=== PATIENT | female | born 1950 | race Caucasian/White ===

== ENCOUNTER 2017-11-23 08:43 | Emergency (ER) | payer MEDICARE, OTHER, SELFPAY ==
[2017-11-23 08:44] VITALS: BP 160/131; PULSE 64; RESP 18; TEMP 36.4; O2SAT 99; BMI 40.2
--- NOTE | 2017-11-23 08:58 | CT_ITS ---
STUDY: CT ABDOMEN AND PELVIS WITHOUT CONTRAST REASON FOR EXAM: Female, 67 years old. Recent diverticulitis and back pain RADIATION DOSAGE (If Supplied By Facility): CTDIvol = ( 18.61 ) mGy, DLP = ( 901.9 ) mGycm TECHNIQUE: Transaxial images were obtained from the dome of the diaphragm to the symphysis pubis without oral contrast, and without intravenous contrast. Sagittal and coronal images were reconstructed. Individualized dose optimization techniques were used for this CT. COMPARISON: 06/12/2016 FINDINGS: The visualized lung bases are unremarkable. The visualized portions of the heart are within normal limits. Normal liver. Normal gallbladder and extrahepatic biliary system. Normal spleen. Normal pancreas. Normal bilateral adrenal glands. Normal right kidney. Normal left kidney. Stable small exophytic left lower pole renal cyst. There is a small hiatal hernia. Normal small intestine. There are multiple colonic diverticula consistent with diverticulosis. There appears to be a small amount of pericolonic fat stranding in the sigmoid colon suggesting low-grade colitis. No evidence of perforation or abscess. The appendix is visualized and appears normal. Normal abdominal aorta. Normal inferior vena cava. Normal retroperitoneum. Normal urinary bladder. Normal visualized uterus. Bilateral tubal ligation Normal abdominal wall. There are diffuse degenerative changes of the visualized lumbar spine. CT/Abdomen/Pelvis without Cont IMPRESSION: Chronic diverticulosis is noted with a small amount of pericolonic fat stranding and edema in the sigmoid colon region suggesting low-grade diverticulitis. No evidence of abscess or perforation. Remaining chronic findings as above Electronically Signed: Chad Crowley DO at 10:18 EST Tel , Service support ,
--- NOTE | 2017-11-23 08:59 | ED.VISSUMM ---
- ER Visit Summary Date of Service: 11/23/17 Chief Complaint: [Abdominal pain] History of Present Illness: The patient is a 67 F [[place] emergency department with abdominal pain. It started 2-1/2 weeks ago. She was started on Cipro and Flagyl for diverticulitis by her primary care physician. He did get much better but never went away. The last few days she has had pain in her left back radiating down her left buttock into her thigh. The abdominal pain continues to be there and waxes and wanes. She rates as 8 out of 10. It is worse with sitting. Bowel movements have been normal. She has been having some dribbling urine. No hematuria. No fevers or chills. She has had a tubal ligation but no other abdominal surgeries. She does have a history of high blood pressure. She takes her blood pressure medicine regularly. She was at urgent care and her blood pressure was 120/87. She states she has white coat hypertension he usually goes down on a second check.] Physical Examination: [] Blood pressure 160/131 vitals within normal limits WN WD NAD PERRL EOMI MMM NECK supple and nontender, no masses RRR no murmur rub or gallop, no peripheral edema, symmetric radial pulses CTAB no respiratory distress ABDOMEN is soft very mild diffuse tenderness, pain is reproduced when sitting up, normal bowel sounds, no distension, no rebound or guarding No CVA tenderness or midline lumbar tenderness, she does have pain reproduced on straight leg raise she has strong DP pulses and no distal skin changes SKIN is warm and dry no rashes Alert and Oriented x3, CN II-XII in tact, no motor or sensory deficits, gait normal No lymphadenopathy Test Results: [] Emergency Department Course and Treatment: [Patient had a mild leukocytosis. CT of the abdomen and pelvis shows sigmoid diverticulitis. On reevaluation pain has increased and patient states this is the worst pain she is ever had. At that time I did give her morphine and spoke with the hospitalist regarding admission for recurrent diverticulitis that failed initial treatment.] Treatment Plan: [] Disposition: [Admit] Impression: [Diverticulitis] This note was generated with [employer] software. It may contain incorrect words, spelling, and punctuation that were not noted in review of the chart prior to signing ED Disposition - Plan for ED Patient: Disposition: Home or Assisted Living Chief Complaint: Abd Pain Diagnosis: Diverticulitis Prescriptions: Hydrocodone Bitart/Apap 5-325 [[place] 5MG-325MG] 1 tablet PO Q6H PRN PRN 3 Days #12 tablet PRN Reason: Pain Amoxicillin/Potassium Clav [Augmentin 875-125 Tablet] 1 ea PO BID #28 tab Ibuprofen 3 tab PO Q6H PRN #1 tablet PRN Reason: Pain Referrals: Adiel Foster III, MD [Primary Care Provider] - Additional Instructions: Notify PCP or return to ED if experiencing worsening abdominal pain. [place] diet, advance as tolerated.
--- NOTE | 2017-11-23 09:02 | ED.DCSUM_ITS ---
- ER Visit Summary Date of Service: 11/23/17 Chief Complaint: [Abdominal pain] History of Present Illness: The patient is a 67 F [[place] emergency department with abdominal pain. It started 2-1/2 weeks ago. She was started on Cipro and Flagyl for diverticulitis by her primary care physician. He did get much better but never went away. The last few days she has had pain in her left back radiating down her left buttock into her thigh. The abdominal pain continues to be there and waxes and wanes. She rates as 8 out of 10. It is worse with sitting. Bowel movements have been normal. She has been having some dribbling urine. No hematuria. No fevers or chills. She has had a tubal ligation but no other abdominal surgeries. She does have a history of high blood pressure. She takes her blood pressure medicine regularly. She was at urgent care and her blood pressure was 120/87. She states she has white coat hypertension he usually goes down on a second check.] Physical Examination: [] Blood pressure 160/131 vitals within normal limits WN WD NAD PERRL EOMI MMM NECK supple and nontender, no masses RRR no murmur rub or gallop, no peripheral edema, symmetric radial pulses CTAB no respiratory distress ABDOMEN is soft very mild diffuse tenderness, pain is reproduced when sitting up , normal bowel sounds, no distension, no rebound or guarding No CVA tenderness or midline lumbar tenderness, she does have pain reproduced on straight leg raise she has strong DP pulses and no distal skin changes SKIN is warm and dry no rashes Alert and Oriented x3, CN II-XII in tact, no motor or sensory deficits, gait normal No lymphadenopathy Test Results: [] Emergency Department Course and Treatment: [Patient had a mild leukocytosis. CT of the abdomen and pelvis shows sigmoid diverticulitis. On reevaluation pain has increased and patient states this is the worst pain she is ever had. At that time I did give her morphine and spoke with the hospitalist regarding admission for recurrent diverticulitis that failed initial treatment.] Treatment Plan: [] Disposition: [Admit] Impression: [Diverticulitis] This note was generated with [employer] software. It may contain incorrect words, spelling, and punctuation that were not noted in review of the chart prior to signing ED Disposition - Plan for ED Patient: Disposition: Home or Assisted Living Chief Complaint: Abd Pain Diagnosis: Diverticulitis Prescriptions: Hydrocodone Bitart/Apap 5-325 [[place] 5MG-325MG] 1 tablet PO Q6H PRN PRN 3 Days # 12 tablet PRN Reason: Pain Amoxicillin/Potassium Clav [Augmentin 875-125 Tablet] 1 ea PO BID #28 tab Ibuprofen 3 tab PO Q6H PRN #1 tablet PRN Reason: Pain Referrals: Adiel Foster III, MD [Primary Care Provider] - Additional Instructions: Notify PCP or return to ED if experiencing worsening abdominal pain. [place] diet , advance as tolerated.
[2017-11-23] MEDS: 0.9% Normal Saline 1,000 ML 1000 ML IV (09:30)
[2017-11-23 09:33] LABS: Absolute Lymphocyte Count 2.34 X10^3/ul (0.83-4.51); Absolute Neutrophil Count 3.7 X10^3/uL (2.0-7.7); Basophil# 0.03 X10^3/uL; Basophil% 0.4 % (0-1); Eosinophils% 1.5 % (0-5); Hematocrit 40.6 % (37-47); Lymphocyte # 2.34 X10^3/ul (4.0); Lymphocyte % 34.4 % (19-41); Mean Corpuscular Hgb 27.6 pg (27.0-32.0); Mean Corpuscular Volume 86.2 fL (81-99); Monocyte# 0.59 X10^3/uL; Monocyte% 8.7 % (0-10); Neutrophil # 3.73 X10^3/uL (2.7-7.7); Neutrophil % 54.9 % (47-70); Platelet Count 209 K/mm3 (150-450); RBC Distribution Width CV 14.4 % (11.6-14.6); RBC Distribution Width SD 45.2 fl (35.1-43.9); Red Blood Count 4.71 M/mm3 (4.2-5.4); White Blood Count 6.8 K/mm3 (4.4-11.0)
[2017-11-23 09:34] LABS: POSITIVE COUNT NO; POSITIVE DIFFERENTIAL NO; POSITIVE MORPHOLOGY NO
[2017-11-23 09:40] LABS: Bacteria 0 SEEN /hpf (None Seen); Mucous, Urine 0 SEEN /hpf (<or=2+); White Blood Cells 0 SEEN /hpf (0-5)
[2017-11-23 09:43] LABS: Color, Urine Yellow (Yellow); Glucose, Dipstick Normal (Normal); Ketone-Dipstick Negative (Negative); Leukocyte Esterase-Dipstick Negative /ul (Negative); Nitrite-Dipstick Negative (Negative); Occult Blood-Urine Negative /ul (Negative); Protein-Dipstick Negative (Negative); Specific Gravity, Urine 1.015 (1.002-1.030); Urine Bilirubin Dipstick Negative (Negative); Urine Clarity Sl. Cloudy (Clear); Urine Urobilinogen Normal (Normal)
[2017-11-23 09:49] LABS: Red Blood Cells-Urine 0-5 SEEN /hpf (0-5); Squamous Epithelial Cells - UA 0-5 SEEN /hpf (5-10)
[2017-11-23 09:53] LABS: Albumin, Serum 3.5 g/dL (3.2-5.0); BUN 16 mg/dL (7-18); BUN/Creat Ratio 20.3 RATIO (10-20); Creatinine, Serum 0.79 mg/dL (0.55-1.02); EST Glomerular Filtration Rate 78 mL/min (>60); Est Glom Filt Rate - Afr Amer 94 mL/min (>60); Estimated Creatinine Clearance 43.77 ml/min; Glucose 86 mg/dL (74-106); Protein, Total 7.4 g/dL (6.4-8.2)
[2017-11-23 09:54] LABS: ALB/GLOB Ratio 0.9 RATIO (0.9-2.4); AST(SGOT) 24 U/L (15-37); Alanine Aminotransfer ALT/SGPT 38 U/L (13-56); Alkaline Phosphatase 73 U/L (45-117); Anion Gap 6 (5-15); Calcium,Total 8.7 mg/dL (8.5-10.1); Chloride 104 mmol/L (98-107); Globulin 3.9 g/dL (2.2-4.2); Lipase 158 U/L (73-393); Potassium 3.5 mmol/L (3.5-5.1); Sodium Level 140 mmol/L (136-145)
[2017-11-23] MEDS: Ketorolac 30 MG/ML Syringe IV (10:29)
--- NOTE | 2017-11-23 10:37 | NURSING ---
NO LW OR POA
--- NOTE | 2017-11-23 10:40 | NURSING ---
DR REGGIE VANN
--- NOTE | 2017-11-23 10:49 | NURSING ---
DR PAREDES IN ROOM
--- NOTE | 2017-11-23 11:22 | DCINST.ED_ITS ---
ED Disposition - Plan for ED Patient: Disposition: Home or Assisted Living Chief Complaint: Abd Pain Diagnosis: Diverticulitis Prescriptions: Hydrocodone Bitart/Apap 5-325 [[place] 5MG-325MG] 1 tablet PO Q6H PRN PRN 3 Days # 12 tablet PRN Reason: Pain Amoxicillin/Potassium Clav [Augmentin 875-125 Tablet] 1 ea PO BID #28 tab Ibuprofen 3 tab PO Q6H PRN #1 tablet PRN Reason: Pain Referrals: Adiel Foster III, MD [Primary Care Provider] - Additional Instructions: Notify PCP or return to ED if experiencing worsening abdominal pain. [place] diet , advance as tolerated.
--- NOTE | 2017-11-23 11:22 | PCM.CONS.GEN ---
Problem List (1) Hypertension Status: Chronic Qualifiers: Hypertension type: essential hypertension Qualified Code(s): I10 - Essential (primary) hypertension (2) Diverticulitis Status: Acute Reason for Consult Date of Consultation: 11/23/17 Reason for Consultation: diverticulitis History of Present Illness: The patient is a 67 year old F who experienced an acute flare of diverticulitis approximately 2 weeks ago. Patient took a 10 day course of metronidazole and ciprofloxacin. Patient still had left lower quadrant abdominal pain but did get better during that time. Patient completed antibiotics several days ago and then today had worsening abdominal pain as well as back pain. Patient presented to the emergency room where her vital signs and lab work was stable. CAT scan showed small amount of pericolonic fat stranding and edema in the sigmoid colon suggesting a low-grade diverticulitis. No abscess or perforation was noted. The hospitalist service was asked to admit the patient for a treatment failure of diverticulitis. [] Past Medical History Past Medical History (Chronic Problems): Chronic Problems Hypertension (Chronic) Allergies codeine Adverse Reaction (Verified 11/23/17 08:46) Vomiting lisinopril Adverse Reaction (Verified 11/23/17 08:46) Other COUGH Home Medications: Ambulatory Orders Medication Instructions Recorded Bisoprol/Hydrochlorothiazide [Ziac 1 tab PO DAILY 09/19/15 5/6.25 MG (Beta Kaiden)] Amoxicillin/Potassium Clav 1 ea PO BID #28 tab 11/23/17 [Augmentin 875-125 Tablet] Hydrocodone Bitart/Apap 5-325 1 tablet PO Q6H PRN PRN 3 Days #12 11/23/17 [[place] 5MG-325MG] tablet Ibuprofen 3 tab PO Q6H PRN #1 tablet 11/23/17 Smoking Status: Never smoker - *Family History Paternal History Items: Cancer - Prostate, Heart Disease Sibling History Items: Cancer - Esophageal Review of Systems Constitutional: Denies: Chills, Fever, Weight Change Eyes: Denies: Blurred vision, Double vision HEENT: Denies: Head Aches, Sinus Congestion, Sinus Drainage Cardiovascular: Denies: Chest Pain, Palpitations Respiratory: Denies: Cough, Shortness of breath at rest, Sputum production Gastrointestinal: Reports: Abdominal Pain. Denies: Hematochezia, Nausea, Melena, Vomiting Genitourinary: Denies: Dysuria Musculoskeletal: Denies: Joint Pain, Joint Tenderness Skin: Denies: Rash, Wounds Neurological: Denies: Blurred vision, Double vision, Focal weakness, Numbness, Tingling Psychiatric: Denies: Anxiety, Depression Hematologic/ Lymphatic: Denies: Easy Bruising, Easy Bleeding, Hx of blood clot Patient Problems: Active and Suspected Problems Diverticulitis (Acute) - Physical Exam General: Alert, Cooperative, No apparent distress HEENT: Atraumatic, Normocephalic Neck: No Nodes, Thyroid Normal Size and Texture Lungs: Clear to auscultation, Normal air movement, No rhonchi, No wheeze Cardiovascular: Regular rate, Regular Rhythm, Normal S1, Normal S2 Abdomen: Bowel Sounds Present, Soft, Tender - Left lower quadrant. No rebound tenderness. Extremities: No edema, No Calf Tenderness Skin: No rashes, No breakdown Musculoskeletal: No Tenderness to Palpation of Joints or Extremities, No Muscle Wasting Psych/Mental Status: Normal Affect, Appropriate Vital Signs Temp Pulse Resp BP Pulse Ox 36.4 C L 64 18 160/131 H 99 11/23/17 08:44 11/23/17 08:44 11/23/17 08:44 11/23/17 08:44 11/23/17 08:44 Oxygen Delivery Method Room Air Weight: 99.79 kg Body Mass Index (BMI) 40.2 Laboratory Tests Past 24 Hrs 11/23/17 11/23/17 11/23/17 09:24 09:24 09:35 WBC 6.8 RBC 4.71 Hgb 13.0 Hct 40.6 MCV 86.2 MCH 27.6 MCHC 32.0 RDW 14.4 RDW Differential 45.2 H Plt Count 209 MPV 11.0 Immature Gran % (Auto) 0.100 Neut % (Auto) 54.9 Lymph % (Auto) 34.4 [place] % (Auto) 8.7 Eos % (Auto) 1.5 Baso % (Auto) 0.4 Absolute Neuts (auto) 3.7 Absolute Lymphs (auto) 2.34 Total Counted Not Reportable Sodium 140 Potassium 3.5 Chloride 104 Carbon Dioxide 30.0 Anion Gap 6 BUN 16 Creatinine 0.79 Estim Creat Clear Calc 43.77 Est GFR (MDRD) Af Amer 94 Est GFR (MDRD) Non-Af 78 BUN/Creatinine Ratio 20.3 H Glucose 86 Calcium 8.7 Total Bilirubin 0.40 AST 24 ALT 38 Alkaline Phosphatase 73 Total Protein 7.4 Albumin 3.5 Globulin 3.9 Albumin/Globulin Ratio 0.9 Lipase 158 Urine Color Yellow Urine Clarity Sl. Cloudy Urine pH 8.0 Ur Specific [place] 1.015 Urine Protein Negative Urine Glucose (UA) Normal Urine Ketones Negative Urine Occult Blood Negative Urine Nitrite Negative Urine Bilirubin Negative Urine Urobilinogen Normal Ur Leukocyte Esterase Negative Urine RBC 0-5 SEEN Urine WBC 0 SEEN Ur Squamous Epith Cells 0-5 SEEN Urine Bacteria 0 SEEN Urine Mucus 0 SEEN Clinical Impression(s) from Imaging Studies Abdomen/Pelvis CT 11/23/17 08:58 IMPRESSION: Chronic diverticulosis is noted with a small amount of pericolonic fat stranding and edema in the sigmoid colon region suggesting low-grade diverticulitis. No evidence of abscess or perforation. Remaining chronic findings as above Electronically Signed: Chad Crowley DO at 10:18 EST Tel , Service support , Assessment/Plan Active and Suspected Problems Diverticulitis (Acute) 1. Acute diverticulitis Patient had completed a course of metronidazole and ciprofloxacin about 4 days ago. Patient stated that her symptoms were not completely resolved though improved with that antibiotic course. Patient was on antibiotic course for 10 days. I am not sure I can really qualify this as a treatment failure but I do feel that patient would warrant additional treatment with a different antibiotic. And I recommend a 2 week course of Augmentin. Told the patient that she is hemodynamically stable as well as her labs do not reflect severe illness or even sepsis. I did state the patient's pain is so severe that she can certainly be brought in under observation to ensure that she was doing better and tolerating diet. Patient stated that she would rather go home with antibiotics as well as she is agreeable to a short course of [place] if needed. So I will send her 3 day course of [place] in addition to the 2 week course of Augmentin. Patient instructed that if she has worsening abdominal pain that it could be a sign of a developing abscess or perforation and to notify her primary care doctor or come back to the emergency room. This is now the patient's 6 round of diverticulitis. I suggested that she follow-up with general surgery to see if a partial colectomy may be advisable to help prevent further flareups. No acute surgical intervention is necessary at this time. Patient is medically stable and taken liberty to complete the discharge orders and send the patient's prescriptions to her local pharmacy. Code Visit Office Visits / Consults: [id number] OP Consult L3
--- NOTE | 2017-11-23 11:29 | CON.PCM_ITS ---
Problem List (1) Hypertension Status: Chronic Qualifiers: Hypertension type: essential hypertension Qualified Code(s): I10 - Essential (primary) hypertension (2) Diverticulitis Status: Acute Reason for Consult Date of Consultation: 11/23/17 Reason for Consultation: diverticulitis History of Present Illness: The patient is a 67 year old F who experienced an acute flare of diverticulitis approximately 2 weeks ago. Patient took a 10 day course of metronidazole and ciprofloxacin. Patient still had left lower quadrant abdominal pain but did get better during that time. Patient completed antibiotics several days ago and then today had worsening abdominal pain as well as back pain. Patient presented to the emergency room where her vital signs and lab work was stable. CAT scan showed small amount of pericolonic fat stranding and edema in the sigmoid colon suggesting a low-grade diverticulitis. No abscess or perforation was noted. The hospitalist service was asked to admit the patient for a treatment failure of diverticulitis. [] Past Medical History Past Medical History (Chronic Problems): Chronic Problems Hypertension (Chronic) Allergies codeine Adverse Reaction (Verified 11/23/17 08:46) Vomiting lisinopril Adverse Reaction (Verified 11/23/17 08:46) Other COUGH Home Medications: Ambulatory Orders Medication Instructions Recorded Bisoprol/Hydrochlorothiazide [Ziac 1 tab PO DAILY 09/19/15 5/6.25 MG (Beta [place])] Amoxicillin/Potassium Clav 1 ea PO BID #28 tab 11/23/17 [Augmentin 875-125 Tablet] Hydrocodone Bitart/Apap 5-325 1 tablet PO Q6H PRN PRN 3 Days #12 11/23/17 [[place] 5MG-325MG] tablet Ibuprofen 3 tab PO Q6H PRN #1 tablet 11/23/17 Smoking Status: Never smoker - *Family History Paternal History Items: Cancer - Prostate, Heart Disease Sibling History Items: Cancer - Esophageal Review of Systems Constitutional: Denies: Chills, Fever, Weight Change Eyes: Denies: Blurred vision, Double vision HEENT: Denies: Head Aches, Sinus Congestion, Sinus Drainage Cardiovascular: Denies: Chest Pain, Palpitations Respiratory: Denies: Cough, Shortness of breath at rest, Sputum production Gastrointestinal: Reports: Abdominal Pain. Denies: Hematochezia, Nausea, Melena , Vomiting Genitourinary: Denies: Dysuria Musculoskeletal: Denies: Joint Pain, Joint Tenderness Skin: Denies: Rash, Wounds Neurological: Denies: Blurred vision, Double vision, Focal weakness, Numbness, Tingling Psychiatric: Denies: Anxiety, Depression Hematologic/ Lymphatic: Denies: Easy Bruising, Easy Bleeding, Hx of blood clot Patient Problems: Active and Suspected Problems Diverticulitis (Acute) - Physical Exam General: Alert, Cooperative, No apparent distress HEENT: Atraumatic, Normocephalic Neck: No Nodes, Thyroid Normal Size and Texture Lungs: Clear to auscultation, Normal air movement, No rhonchi, No wheeze Cardiovascular: Regular rate, Regular Rhythm, Normal S1, Normal S2 Abdomen: Bowel Sounds Present, Soft, Tender - Left lower quadrant. No rebound tenderness. Extremities: No edema, No Calf Tenderness Skin: No rashes, No breakdown Musculoskeletal: No Tenderness to Palpation of Joints or Extremities, No Muscle Wasting Psych/Mental Status: Normal Affect, Appropriate Vital Signs Temp Pulse Resp BP Pulse Ox 36.4 C L 64 18 160/131 H 99 11/23/17 08:44 11/23/17 08:44 11/23/17 08:44 11/23/17 08:44 11/23/17 08:44 Oxygen Delivery Method Room Air Weight: 99.79 kg Body Mass Index (BMI) 40.2 Laboratory Tests Past 24 Hrs 11/23/17 11/23/17 11/23/17 09:24 09:24 09:35 WBC 6.8 RBC 4.71 Hgb 13.0 Hct 40.6 MCV 86.2 MCH 27.6 MCHC 32.0 RDW 14.4 RDW Differential 45.2 H Plt Count 209 MPV 11.0 Immature Gran % (Auto) 0.100 Neut % (Auto) 54.9 Lymph % (Auto) 34.4 [place] % (Auto) 8.7 Eos % (Auto) 1.5 Baso % (Auto) 0.4 Absolute Neuts (auto) 3.7 Absolute Lymphs (auto) 2.34 Total Counted Not Reportable Sodium 140 Potassium 3.5 Chloride 104 Carbon Dioxide 30.0 Anion Gap 6 BUN 16 Creatinine 0.79 Estim Creat Clear Calc 43.77 Est GFR (MDRD) Af Amer 94 Est GFR (MDRD) Non-Af 78 BUN/Creatinine Ratio 20.3 H Glucose 86 Calcium 8.7 Total Bilirubin 0.40 AST 24 ALT 38 Alkaline Phosphatase 73 Total Protein 7.4 Albumin 3.5 Globulin 3.9 Albumin/Globulin Ratio 0.9 Lipase 158 Urine Color Yellow Urine Clarity Sl. Cloudy Urine pH 8.0 Ur Specific [place] 1.015 Urine Protein Negative Urine Glucose (UA) Normal Urine Ketones Negative Urine Occult Blood Negative Urine Nitrite Negative Urine Bilirubin Negative Urine Urobilinogen Normal Ur Leukocyte Esterase Negative Urine RBC 0-5 SEEN Urine WBC 0 SEEN Ur Squamous Epith Cells 0-5 SEEN Urine Bacteria 0 SEEN Urine Mucus 0 SEEN Clinical Impression(s) from Imaging Studies Abdomen/Pelvis CT 11/23/17 08:58 IMPRESSION: Chronic diverticulosis is noted with a small amount of pericolonic fat stranding and edema in the sigmoid colon region suggesting low-grade diverticulitis. No evidence of abscess or perforation. Remaining chronic findings as above Electronically Signed: Chad Crowley DO at 10:18 EST Tel , Service support , Assessment/Plan Active and Suspected Problems Diverticulitis (Acute) 1. Acute diverticulitis * Patient had completed a course of metronidazole and ciprofloxacin about 4 days ago. Patient stated that her symptoms were not completely resolved though improved with that antibiotic course. Patient was on antibiotic course for 10 days. I am not sure I can really qualify this as a treatment failure but I do feel that patient would warrant additional treatment with a different antibiotic. And I recommend a 2 week course of Augmentin. Told the patient that she is hemodynamically stable as well as her labs do not reflect severe illness or even sepsis. I did state the patient's pain is so severe that she can certainly be brought in under observation to ensure that she was doing better and tolerating diet. Patient stated that she would rather go home with antibiotics as well as she is agreeable to a short course of [place] if needed. So I will send her 3 day course of [place] in addition to the 2 week course of Augmentin. Patient instructed that if she has worsening abdominal pain that it could be a sign of a developing abscess or perforation and to notify her primary care doctor or come back to the emergency room. * This is now the patient's 6 round of diverticulitis. I suggested that she follow-up with general surgery to see if a partial colectomy may be advisable to help prevent further flareups. No acute surgical intervention is necessary at this time. * Patient is medically stable and taken liberty to complete the discharge orders and send the patient's prescriptions to her local pharmacy. Code Visit Office Visits / Consults: [id number] OP Consult L3
[2017-11-23 11:40] VITALS: BP 142/75; PULSE 54; RESP 16; O2SAT 100
== END 2017-11-23 12:03 | disposition home or self-care (01) ==
PROVIDERS: Emergency Provider Emergency Medicine; Family Provider Family Medicine; PCP Family Medicine
DX: K57.32 Diverticulitis of large intestine without perforation or abscess without bleeding (principal); I10 Essential (primary) hypertension
CPT/HCPCS: 74176; 80053; 81001; 83690; 85025; 96361; 96365; 96375; 99283; J7030; J7050; A4216

== ENCOUNTER 2018-03-14 18:46 | Emergency (ER) | payer MEDICARE, OTHER, SELFPAY ==
--- NOTE | 2018-03-14 18:46 | DT_ITS ---
This patient was seen during an EMR downtime March 14, 2018 - March 21, 2018. This patient may have a combination of paper and electronic documentation or all paper documentation. All documentation is viewable within the e-chart portion of [employer] for each patient visit.
== END 2018-03-14 19:05 | disposition left against medical advice (07) ==
LOC: ED 03-16 14:48
PROVIDERS: Emergency Provider Emergency Medicine; Family Provider Family Medicine; PCP Family Medicine
DX: Z53.21 Procedure and treatment not carried out due to patient leaving prior to being seen by health care provider (principal)

== ENCOUNTER 2019-03-08 12:43 | Emergency (ER) | payer MEDICARE, OTHER, SELFPAY ==
[2019-03-08 12:43] VITALS: BP 143/80; PULSE 69; RESP 14; TEMP 36.6; O2SAT 97; BMI 37.2
--- NOTE | 2019-03-08 13:11 | CT_ITS ---
STUDY: CT ABDOMEN AND PELVIS WITHOUT CONTRAST REASON FOR EXAM: Female, 68 years old. Lower abdominal pain. History of diverticulitis. RADIATION DOSAGE (If Supplied By Facility): CTDIvol = ( 16.31 ) mGy, DLP = ( 835.23 ) mGycm TECHNIQUE: Transaxial images were obtained from the dome of the diaphragm to the symphysis pubis without oral contrast, and without intravenous contrast. Sagittal and coronal images were reconstructed. Individualized dose optimization techniques were used for this CT. COMPARISON: Comparison is made with prior study dated November 23, 2017. FINDINGS: The visualized lung bases are unremarkable. The visualized portions of the heart are within normal limits. There is decreased attenuation of the liver consistent with steatosis. Normal gallbladder and extrahepatic biliary system. Normal spleen. Normal pancreas. Normal bilateral adrenal glands. Normal right kidney. Normal left kidney. There is a small hiatal hernia. Normal small intestine. There is diverticulosis, with thickening of the colon wall, and pericolonic inflammation changes consistent with acute diverticulitis. The appendix is visualized and appears normal. There is scattered atherosclerotic calcification of the abdominal aorta, without a demonstrated aneurysm. Normal inferior vena cava. There is borderline retroperitoneal lymphadenopathy with enlarged nodes no greater than 10mm in the short axis diameter. Normal urinary bladder. Evidence of bilateral tubal ligation. Normal abdominal wall. There are diffuse degenerative changes of the visualized lumbar spine. Minimal anterior listhesis of L4 on L5. CT/Abdomen/Pelvis without Cont IMPRESSION: Findings in keeping with a mild degree of noncomplicated sigmoid diverticulitis. Fatty infiltration of the liver. Electronically Signed: Oz Phillips, at 14:05 EDT , Service support ,
--- NOTE | 2019-03-08 13:12 | ED.VISSUMM ---
- ER Visit Summary Date of Service: 03/08/19 Chief Complaint: Abdominal pain History of Present Illness: The patient is a 68 F who presents with left lower abdominal pain that has been getting worse over the past 2 days. Patient states the pain feels similar to her diverticulitis pain. Patient states the pain is over the lower abdomen but worse on the left. Patient admits to some nausea but denies any vomiting. Patient admits to subjective fevers. Patient denies any diarrhea, melena, or hematochezia. Patient denies any urinary complaints. Patient denies any back pain. Patient denies any chest pain or shortness of breath. Physical Examination: Vital signs are stable. Patient is afebrile. Patient is in no acute distress. Oral mucosa is pink and moist. Neck is supple. Trachea is midline. There is no JVD noted. Heart was regular rate and rhythm. Lungs are clear and equal bilaterally. Abdomen is soft. Bowel sounds are normal. There is mild left lower quadrant tenderness. There is no rebound or guarding noted. Cranial nerves II through XII are intact. There are no focal motor or sensory deficits noted. Test Results: CT scan of the abdomen and pelvis was obtained. There is mild sigmoid diverticulitis. There is no perforation noted. There is no free air. Emergency Department Course and Treatment: Patient was given prescriptions for Cipro and Flagyl. Patient was instructed to follow-up with her primary care physician in 5 to 7 days. Patient understood and was agreeable with the plan. All questions were answered. Disposition: Discharge home Impression: Sigmoid diverticulitis This note was generated with [employer] dictation software. It may contain incorrect words, spelling, and punctuation that were not noted in review of the chart prior to signing ED Disposition - Plan for ED Patient: Disposition: Home or Assisted Living Diagnosis: Sigmoid diverticulitis Instructions: ED Diverticulitis Prescriptions: Ciprofloxacin [Cipro] 500 mg PO BID #20 tablet metroNIDAZOLE [Flagyl] 500 mg PO Q6H #40 tablet Referrals: Adiel Foster III, MD [Primary Care Provider] - 5-7 Days Additional Instructions: Your prescriptions were electronically transmitted to [facility] pharmacy which is your preferred pharmacy
[2019-03-08 13:39] LABS: Bacteria 0 SEEN /hpf (None Seen); Mucous, Urine 0 SEEN /hpf (<or=2+); Red Blood Cells-Urine 0 SEEN /hpf (0-5); White Blood Cells 0 SEEN /hpf (0-5)
[2019-03-08 13:45] LABS: Color, Urine Yellow (Yellow); Glucose, Dipstick Normal (Normal); Ketone-Dipstick Negative (Negative); Leukocyte Esterase-Dipstick Negative /ul (Negative); Nitrite-Dipstick Negative (Negative); Occult Blood-Urine Negative /ul (Negative); Protein-Dipstick Negative (Negative); Urine Bilirubin Dipstick Negative (Negative); Urine Clarity Sl. Cloudy (Clear); Urine Urobilinogen Normal (Normal); Urine pH 6.5 (5.0 - 8.0)
[2019-03-08 13:49] LABS: Squamous Epithelial Cells - UA 0-5 SEEN /hpf (5-10)
[2019-03-08 14:45] VITALS: RESP 18
== END 2019-03-08 14:47 | disposition home or self-care (01) ==
PROVIDERS: Emergency Provider Emergency Medicine; Family Provider Family Medicine; PCP Family Medicine
DX: K57.32 Diverticulitis of large intestine without perforation or abscess without bleeding (principal); I10 Essential (primary) hypertension
CPT/HCPCS: 74176; 81001; 99282; J7030

== ENCOUNTER 2019-03-27 13:21 | Emergency (ER) | payer MEDICARE, OTHER, SELFPAY ==
[2019-03-27 13:22] VITALS: BP 142/95; PULSE 73; RESP 16; TEMP 36.8; O2SAT 99; BMI 39.2
--- NOTE | 2019-03-27 13:30 | CT_ITS ---
STUDY: CT ABDOMEN AND PELVIS WITH CONTRAST REASON FOR EXAM: Female, 68 years old. Lower abdominal pain. History of diverticulitis. RADIATION DOSAGE (If Supplied By Facility): CTDIvol = ( 18.45 ) mGy, DLP = ( 1162.53 ) mGycm TECHNIQUE: Transaxial images were obtained from the dome of the diaphragm to the symphysis pubis without oral contrast. 100 IV Isovue 370 was administered. Sagittal and coronal images were reconstructed. Individualized dose optimization techniques were used for this CT. COMPARISON: Comparison is made with prior study dated March 08, 2019. FINDINGS: The visualized lung bases are unremarkable. The visualized portions of the heart are within normal limits. There is decreased attenuation of the liver consistent with steatosis. Normal gallbladder and extrahepatic biliary system. Normal spleen. Normal pancreas. Normal bilateral adrenal glands. Normal right kidney. Normal left kidney. There is a small hiatal hernia. Normal small intestine. There is diverticulosis, with thickening of the colon wall, and pericolonic inflammation changes consistent with acute diverticulitis. This is essentially unchanged as compared to prior study. The appendix is visualized and appears normal. There is scattered atherosclerotic calcification of the abdominal aorta, without a demonstrated aneurysm. Normal inferior vena cava. Normal retroperitoneum. Normal urinary bladder. Evidence of bilateral tubal ligation. Normal abdominal wall. There are degenerative changes of the visualized lumbar spine. Stable minimal anterior listhesis of L4 on L5. CT/Abdomen/Pelvis W IV Cont ONLY IMPRESSION: Stable appearance of the mild degree of sigmoid diverticulitis. Fatty infiltration of the liver. Electronically Signed: Oz Phillips, at 15:36 EDT , Service support ,
--- NOTE | 2019-03-27 13:37 | ED.VISSUMM ---
- ER Visit Summary Date of Service: 03/27/19 Chief Complaint: Abdominal pain History of Present Illness: The patient is a 68 F presents to the emergency department abdominal pain. The patient was recently seen and treated for diverticulitis just over 2 weeks ago. She states she completed her antibiotics. She states that she actually felt markedly improved after 2 days of antibiotics. She is been doing well until the past 24 hours. She states that she is developed pain again. She denies any fevers or chills. She does describe some mild nausea. She denies any difficulty with urination. She states that she has had diverticulitis before and this feels similar. Physical Examination: Vital signs reviewed General: Well-nourished, well-developed Head: Normocephalic, atraumatic Eyes: Pupils equal and reactive, extraocular muscles intact Neck, supple, no lymphadenopathy Heart: Regular rate and rhythm Respiratory: No distress, clear bilaterally Abdomen: Soft, nontender, nondistended, no peritoneal signs Back: Nontender Extremities: Nontender, no edema, no cords Skin: Normal color no rash Neuro: Alert and oriented, no focal or lateralizing deficits Test Results: [] Emergency Department Course and Treatment: The patient had recurrence of her symptoms despite outpatient therapy. I did obtain screening labs are unremarkable. Patient underwent CT imaging as I did want to rule out abscess or perforation. The mild diverticulitis, but no abscess or perforation. I did discuss options with the patient. She wants to do outpatient therapy and I feel this is reasonable. We are going to try Augmentin this time at an extended course. I did counselor/art therapist her that she may need surgical follow-up as she had recurrent infections and she may be to the point where operative fixation would be of benefit. She is comfortable with this plan. She will be discharged home.] Treatment Plan: [] Disposition: Discharge Impression: 1. Acute diverticulitis This note was generated with [employer] dictation software. It may contain incorrect words, spelling, and punctuation that were not noted in review of the chart prior to signing ED Disposition - Plan for ED Patient: Instructions: ED Diverticulitis Prescriptions: Amox/Clavulanate Tablet [Augmentin Tablet] 875 mg PO Q12H #20 tab Fluconazole [Diflucan] 150 mg PO X1 #1 tab Referrals: Adiel Foster III, MD [Primary Care Provider] -
[2019-03-27] MEDS: 0.9% Normal Saline 1,000 ML 1000 ML IV (14:15)
[2019-03-27 14:23] LABS: Bacteria 0 SEEN /hpf (None Seen); Mucous, Urine 0 SEEN /hpf (<or=2+); Red Blood Cells-Urine 0 SEEN /hpf (0-5); White Blood Cells 0 SEEN /hpf (0-5)
[2019-03-27 14:26] LABS: Absolute Lymphocyte Count 2.42 X10^3/ul (0.83-4.51); Absolute Neutrophil Count 7.3 X10^3/uL (2.0-7.7); Basophil# 0.02 X10^3/uL; Basophil% 0.2 % (0-1); Eosinophil# 0.13 X10^3/uL; Eosinophils% 1.2 % (0-5); Hematocrit 41.9 % (37-47); Hemoglobin 13.6 g/dl (12.0-15.0); Lymphocyte # 2.42 X10^3/ul (4.0); Lymphocyte % 22.7 % (19-41); Mean Corp Hgb Conc 32.5 g/gl (32-36); Mean Corpuscular Hgb 27.4 pg (27.0-32.0); Mean Corpuscular Volume 84.5 fL (81-99); Monocyte# 0.77 X10^3/uL; Monocyte% 7.2 % (0-10); Neutrophil % 68.5 % (47-70); Platelet Count 221 K/mm3 (150-450); RBC Distribution Width CV 14.8 % (11.6-14.6); RBC Distribution Width SD 44.8 fl (35.1-43.9); Red Blood Count 4.96 M/mm3 (4.2-5.4); White Blood Count 10.7 K/mm3 (4.4-11.0)
[2019-03-27 14:28] LABS: POSITIVE DIFFERENTIAL NO; POSITIVE MORPHOLOGY NO
[2019-03-27 14:30] LABS: Color, Urine Yellow (Yellow); Glucose, Dipstick Normal (Normal); Ketone-Dipstick Negative (Negative); Leukocyte Esterase-Dipstick Negative /ul (Negative); Nitrite-Dipstick Negative (Negative); Occult Blood-Urine Negative /ul (Negative); Protein-Dipstick Negative (Negative); Urine Bilirubin Dipstick Negative (Negative); Urine Clarity Sl. Cloudy (Clear); Urine Urobilinogen Normal (Normal); Urine pH 6.5 (5.0 - 8.0)
[2019-03-27 14:33] LABS: Squamous Epithelial Cells - UA 0-5 SEEN /hpf (5-10)
[2019-03-27 14:43] LABS: ALB/GLOB Ratio 0.8 RATIO (0.9-2.4); AST(SGOT) 27 U/L (15-37); Alanine Aminotransfer ALT/SGPT 35 U/L (13-56); Albumin, Serum 3.6 g/dL (3.2-5.0); Alkaline Phosphatase 66 U/L (45-117); Anion Gap 8 (5-15); BUN 12 mg/dL (7-18); BUN/Creat Ratio 15.4 RATIO (10-20); Calcium,Total 9.3 mg/dL (8.5-10.1); Chloride 102 mmol/L (98-107); Creatinine, Serum 0.78 mg/dL (0.55-1.02); EST Glomerular Filtration Rate 78 mL/min (>60); Est Glom Filt Rate - Afr Amer 95 mL/min (>60); Estimated Creatinine Clearance 45.16 ml/min; Globulin 4.4 g/dL (2.2-4.2); Glucose 101 mg/dL (74-106); Potassium 3.3 mmol/L (3.5-5.1); Sodium Level 139 mmol/L (136-145)
[2019-03-27 16:04] VITALS: BP 142/76; PULSE 76; RESP 18
== END 2019-03-27 16:06 | disposition home or self-care (01) ==
LOC: ED 13:50
PROVIDERS: Emergency Provider Emergency Medicine; Family Provider Family Medicine; PCP Family Medicine
DX: K57.32 Diverticulitis of large intestine without perforation or abscess without bleeding (principal); I10 Essential (primary) hypertension; Z87.891 Personal history of nicotine dependence
CPT/HCPCS: 74177; 80053; 81001; 85025; 96360; 99283; J7030; Q9967; A4216

== ENCOUNTER 2019-04-10 16:17 | Emergency (ER) | payer MEDICARE, OTHER, SELFPAY ==
--- NOTE | 2019-04-10 16:17 | RAD_ITS ---
STUDY: X-RAY - ACUTE ABDOMINAL SERIES REASON FOR EXAM: Female, 68 years old. Abdominal pain. TECHNIQUE: Single view of the chest. Supine, and erect view(s) of the abdomen were obtained. COMPARISON: CT of the abdomen and pelvis, March 27, 2019. Chest, September 19, 2015. FINDINGS: The lungs are clear and expanded. There is mild cardiomegaly. Normal mediastinum and krupa. Normal visualized pulmonary arteries. Normal visualized aortic arch and descending thoracic aorta. There is a non-specific bowel gas pattern. The soft tissue structures of the abdomen and pelvis are unremarkable. There are tubal ligation clips. There are diffuse degenerative changes of the visualized lumbar spine. RAD/Acute Abdomen Inc Chest IMPRESSION: 1. Mild cardiomegaly without acute pulmonary disease or interval change. 2. No evidence of acute intra-abdominal process. Electronically Signed: Rigo Moseley DO at 17:45 EDT Tel [phone], Service support ,
[2019-04-10 16:18] VITALS: BP 161/75; PULSE 75; RESP 16; TEMP 36.8; O2SAT 95; BMI 38.4
--- NOTE | 2019-04-10 16:45 | ED.VISSUMM ---
- ER Visit Summary Date of Service: 04/10/19 Chief Complaint: Abdominal pain History of Present Illness: The patient is a 68 F who presents with lower abdominal pain began yesterday. Patient states she has a history of diverticulitis and feels like this is a recurrence of that. Patient states she was seen here 2 to 3 weeks ago and had a CT scan which showed diverticulitis. Patient completed her course of Cipro and Flagyl and was feeling better. Patient states that a couple days after that she started having symptoms of diverticulitis again. Patient return to the emergency department at that time and had a repeat CT scan which showed mild diverticulitis. Patient was given a prescription for Augmentin. Patient states her symptoms improved after completing this but began again yesterday. Patient admits to some nausea but denies any vomiting. Patient describes her pain is sharp and cramping. Patient states the pain is over the lower abdomen but worse on the left. Patient denies any urinary complaints. Patient denies any diarrhea, melena, or hematochezia. Physical Examination: Vital signs are stable. Patient is afebrile. Patient is in no acute distress. Oromucosa is pink moist. Neck is supple. Trachea is midline. There is no JVD noted. Heart was regular rate and rhythm. Lungs are clear and equal bilaterally. Abdomen is soft. Bowel sounds are normal. There is left lower quadrant tenderness. There is also some mild right lower quadrant tenderness. There is no rebound or guarding noted. Cranial nerves II through XII are intact. There are no focal motor or sensory deficits noted. Test Results: A mild leukocytosis of 12.9. Comprehensive metabolic profile, lipase, and urinalysis were within normal limits. Acute abdominal x-rays were obtained. There is no acute intra-abdominal process noted. There is no perforation noted. Emergency Department Course and Treatment: Patient was given IV fluids, morphine, and Zofran. Patient was given her first dose of Cipro and Flagyl here. She was given prescriptions for Cipro and Flagyl. Patient was instructed to follow-up with her primary care physician in 3 to 5 days. Patient was also given referral for general surgeon. Patient understood and was agreeable with the plan. All questions were answered. Disposition: Discharge home Impression: Diverticulitis This note was generated with [employer] dictation software. It may contain incorrect words, spelling, and punctuation that were not noted in review of the chart prior to signing ED Disposition - Plan for ED Patient: Disposition: Home or Assisted Living Diagnosis: Diverticulitis Instructions: Diverticulitis Prescriptions: Ciprofloxacin [Cipro] 500 mg PO BID #30 tab Transmission Status: Pending to [id number] metroNIDAZOLE [Flagyl] 500 mg PO Q6H #60 tab Transmission Status: Pending to [id number] Referrals: Adiel Foster III, MD [Primary Care Provider] - 3-5 Days Marlon Corado MD [STAFF PHYSICIAN] - 1-2 Weeks
[2019-04-10 17:04] LABS: Absolute Lymphocyte Count 2.38 X10^3/ul (0.83-4.51); Absolute Neutrophil Count 9.4 X10^3/uL (2.0-7.7); Basophil# 0.02 X10^3/uL; Basophil% 0.2 % (0-1); Eosinophil# 0.04 X10^3/uL; Eosinophils% 0.3 % (0-5); Hematocrit 40.8 % (37-47); Hemoglobin 13.4 g/dl (12.0-15.0); Lymphocyte # 2.38 X10^3/ul (4.0); Lymphocyte % 18.5 % (19-41); Mean Corp Hgb Conc 32.8 g/gl (32-36); Mean Corpuscular Hgb 27.9 pg (27.0-32.0); Mean Corpuscular Volume 84.8 fL (81-99); Mean Platelet Vol. 11.3 fl (6.2-12.0); Monocyte# 1.02 X10^3/uL; Monocyte% 7.9 % (0-10); Neutrophil % 72.9 % (47-70); Platelet Count 206 K/mm3 (150-450); RBC Distribution Width CV 14.4 % (11.6-14.6); RBC Distribution Width SD 44.9 fl (35.1-43.9); Red Blood Count 4.81 M/mm3 (4.2-5.4); White Blood Count 12.9 K/mm3 (4.4-11.0)
[2019-04-10 17:05] LABS: POSITIVE COUNT NO; POSITIVE DIFFERENTIAL NO; POSITIVE MORPHOLOGY NO
[2019-04-10] MEDS: Ondansetron 4 MG/2 ML Vial IV (17:07)
[2019-04-10] MEDS: Morphine 4 MG/ML Syringe IV (17:07)
[2019-04-10] MEDS: 0.9% Normal Saline 1,000 ML 1000 ML IV (17:07)
[2019-04-10 17:18] LABS: Bacteria 0 SEEN /hpf (None Seen); Mucous, Urine 0 SEEN /hpf (<or=2+); Red Blood Cells-Urine 0 SEEN /hpf (0-5); White Blood Cells 0 SEEN /hpf (0-5)
[2019-04-10 17:19] LABS: ALB/GLOB Ratio 0.8 RATIO (0.9-2.4); AST(SGOT) 31 U/L (15-37); Alanine Aminotransfer ALT/SGPT 26 U/L (13-56); Albumin, Serum 3.5 g/dL (3.2-5.0); Alkaline Phosphatase 75 U/L (45-117); Anion Gap 3 (5-15); BUN 12 mg/dL (7-18); BUN/Creat Ratio 14.6 RATIO (10-20); Calcium,Total 9.1 mg/dL (8.5-10.1); Chloride 102 mmol/L (98-107); Creatinine, Serum 0.82 mg/dL (0.55-1.02); EST Glomerular Filtration Rate 73 mL/min (>60); Est Glom Filt Rate - Afr Amer 89 mL/min (>60); Estimated Creatinine Clearance 52.65 ml/min; Globulin 4.4 g/dL (2.2-4.2); Glucose 104 mg/dL (74-106); Lipase 69 U/L (73-393); Potassium 4.1 mmol/L (3.5-5.1); Protein, Total 7.9 g/dL (6.4-8.2); Sodium Level 136 mmol/L (136-145)
[2019-04-10 17:24] LABS: Color, Urine Yellow (Yellow); Glucose, Dipstick Normal (Normal); Ketone-Dipstick Negative (Negative); Leukocyte Esterase-Dipstick Negative /ul (Negative); Nitrite-Dipstick Negative (Negative); Occult Blood-Urine Negative /ul (Negative); Protein-Dipstick Negative (Negative); Urine Bilirubin Dipstick Negative (Negative); Urine Clarity Clear (Clear); Urine Urobilinogen Normal (Normal)
[2019-04-10 17:33] LABS: Squamous Epithelial Cells - UA 0-5 SEEN /hpf (5-10)
[2019-04-10 17:52] VITALS: BP 139/65; PULSE 65; RESP 16; TEMP 37.2; O2SAT 98
[2019-04-10] MEDS: metroNIDAZOLE 500 MG Tablet PO (18:47)
[2019-04-10] MEDS: Ciprofloxacin 500 MG Tablet PO (18:47)
[2019-04-10 18:50] VITALS: PULSE 64; RESP 17; O2SAT 97
== END 2019-04-10 18:51 | disposition home or self-care (01) ==
PROVIDERS: Emergency Provider Emergency Medicine; Family Provider Family Medicine; PCP Family Medicine
DX: K57.92 Diverticulitis of intestine, part unspecified, without perforation or abscess without bleeding (principal); I10 Essential (primary) hypertension
CPT/HCPCS: 74022; 80053; 81001; 83690; 85025; 96361; 96374; 96375; 99284; J7030; A4216; J2405

== ENCOUNTER 2019-05-05 07:17 | Day surgery (SDC) | payer MEDICARE, OTHER, SELFPAY ==
[2019-04-18 07:21] VITALS: BMI 38.4
--- NOTE | 2019-04-18 10:04 | HP_ITS ---
Intake Vital Signs 04/18/19 Body Mass Index (BMI) 38.4 Intake Visit Reasons: DIVERTICULITUS/PATIENT WANTED S[facility] Chief Complaint: recurrent diverticulitis Clinical Aide Required: No Is patient in pain?: No Allergies codeine Adverse Reaction (Verified 04/18/19 07:19) Vomiting lisinopril Adverse Reaction (Verified 04/18/19 07:19) Other YELLOW JACKETS Allergy (Uncoded 04/10/19 16:38) Rash Medications Bisoprol/Hydrochlorothiazide [Ziac 5/6.25 MG (Beta Kaiden)] 1 tab PO DAILY 09/19/15 [History Confirmed 04/18/19] Hydrochlorothiazide 12.5 mg PO DAILY 04/10/19 [History Confirmed 04/18/19] metroNIDAZOLE [Flagyl] 500 mg PO Q6H #60 tab 04/10/19 [Rx Confirmed 04/18/19] krill oil 500 mg capsule mg PO cap 04/18/19 [History Confirmed 04/18/19] potassium chloride ER 20 mEq tablet,extended release 20 meq PO BID 04/18/19 [History Confirmed 04/18/19] turmeric 400 mg capsule mg PO cap 04/18/19 [History Confirmed 04/18/19] Is last menstrual period known: No Post menopausal: No Patient : No PFSH Medical History (Updated 04/18/19 @ 10:32 by Pacheco Eastman MD) Hypertension (Chronic) Diverticulitis (Acute) GERD (gastroesophageal reflux disease) (Acute) Hemorrhoid (Acute) Sleep apnea (Acute) Surgical History (Updated 04/18/19 @ 07:16 by Pamella Ding) History of colonoscopy (Acute ~2010) History of dilation and curettage (Acute) History of elbow surgery (Acute) History of esophagogastroduodenoscopy (EGD) (Acute ~2015) History of tubal ligation (Acute) Family History (Updated 04/18/19 @ 07:18 by Pamella Ding) Father Diabetes Heart disease Mother Diabetes Brother Cancer esophageal and brain Diverticulitis Brother Diverticulitis Social History (Updated 04/18/19 @ 10:36 by Pacheco Eastman MD) Smoking Status: Never smoker HPI HPI HPI: EVELIA NUNEZ, is a 68 F who presents to the office today for HPI HPI Surgical H&P: Yes HPI: EVELIA NUNEZ, is a 68 F who presents to the office today for surgical consultation regarding repetitive episodes of diverticulitis. She had her first bout of pain March 08, 2019 was seen at the [facility] emergency room. That time a CT scan was consistent with acute sigmoid diverticulitis. She was placed on ciprofloxacin and metronidazole. After course of that however within a week she had recurrent pain. She return to the emergency room and on March 27, [address] scan continued to show diverticulosis with thickening of the colon wall pericolonic inflammation consistent with acute sigmoid diverticulitis. This is in the proximal sigmoid colon/descending colon. It was felt to be very similar to the previous study of March 08, 2019. The patient was treated with Augmentin. Then the patient after that course of treatment return to see primary care and again was having problems with nausea and abdominal pain. Laboratory obtained demonstrated potassium of 3.3. White blood cell count hemoglobin normal. She was placed on Bactrim and metronidazole and surgical referral is being made. Her most recent colonoscopy was performed by myself on December 28, 2014. That was performed for screening. It was a technically challenging exam secondary to tortuosity of the bowel. No acute findings identified other than for the diverticulosis. Repeat screening exam in 10 years recommended. It is of note that in the interim on September 01, 2016 Dr. Eliu Montoya performed an upper endoscopy for the patient for dysphasia and heartburn. Clinical findings at that time suggested reflux esophagitis normal stomach normal duodenum and recommendations for omeprazole therapy were made. Gastric biopsies were not remarkable. There is felt to be minimal chronic inflammation of the distal esophagus suggestive of GE reflux. H. pylori was negative Patient notes that she is currently on Bactrim therapy twice a day and metronidazole therapy 4 times a day. She believes that the metronidazole decreases her appetite. She still however does note some left mid abdominal discomfort. She denies fever or chills or sweats. ROS General General: Yes fatigue; no weight change, appetite, colon cancer, breast cancer or weakness HEENT HEENT: No difficulty swallowing, eye injury, eye surgery, swollen glands or hoarseness Endo Endocrine: No thyroid disease, diabetes mellitus, thyroid cancer, Hair loss, heat intolerance or cold intolerance Cardio Cardiovascular: Yes high blood pressure; no murmur, pacemaker, heart disease, atrial fibrillation, heart attack, heart stent, palpitations, shortness of breat with exertion or chest pain Resp Respiratory: No shortness of breath, Yes sleep apnea, No cough, No COPD, No asthma, No emphysema, No wheezing Gastro Gastrointestinal: Yes abdominal pain, Yes nausea or vomiting, No diarrhea, Yes constipation, No blood in stool, Yes acid reflux, Yes hemorrhoids, No ulcers, No gallbladder problem, No black,tarry stools [place]yn Hematologic: No blood thinners, No blood disorders, No bleeding, No anemia, No blood clots Neuro Neurologic: No weakness Exam Const General: cooperative, healthy appearing, comfortable, no acute distress Nutritional Appearance: obese Orientation: alert, awake, oriented x3 HENMT Head: normal to inspection Eyes General: appearance normal, both eyes and all related structures Neck Neck: normal visual inspection Chest Chest palpation & inspection: normal inspection of the chest Resp Effort & Inspection: normal respiratory effort Auscultation: clear to auscultation bilaterally Cardio Rate: regular rate Rhythm: regular rhythm Heart Sounds: no murmurs GI Palpation: soft Auscultation: normal bowel sounds Other: Soft, normal bowel sounds, fullness and mild tenderness noted in the left lateral mid abdomen and lower quadrant, no guarding or rebound Skin Lesions: no lesions Neuro Cognition: normal cognition Extrem General: no calf tenderness bilaterally Psych Affect: normal affect Assessment & Plan Problems 1. Sigmoid diverticulitis K57.32 Plan 68-year-old female. She is currently on her third course of antibiotics for chronic non-resolving sigmoid diverticulitis. On CT imaging this process is in the more proximal sigmoid colon possibly easing part of the descending colon. My current antibiotic recommendations for her are to continue her Bactrim twice daily and the patient is asking to have her metronidazole cut down to 3 times daily which I believe is reasonable. She does not particularly like the metronidazole. Every time she has ceased antibiotic she has had recurrence of symptoms. I am recommending to her a colonoscopy and then if otherwise uneventful a laparoscopic sigmoid colectomy. In detail I discussed the technique, benefit, risks, alternatives. Because of the location of the acute inflammation I suspect that she will require mobilization of the splenic flexure. This is certainly technically more demanding. She may require conversion to an assisted or open procedure. She is well aware of the potential risk for comp colostomy or diverting ileostomy. She is aware of the potential utilization of a transverse supra pubic incision versus a midline incision. She has had an opportunity to ask and have questions answered. We will utilize a enhanced recovery program. At the completion of her current antibiotics we will have her continue on Augmentin 875 mg twice daily until surgery to hopefully avoid an acute exacerbation. Clearly I do not believe that she is ever resolving her diverticulitis despite now 3 courses of antibiotics. I do believe that surgical treatment is indicated in this situation. We will schedule and proceed at her discretion. Increased operative time will be required because of the complexity of the procedure. I very much appreciate the kind opportunity of assisting with her surgical care CC: Karuna Ho, VANDANA and Dr. Adiel Eastman, III Pacheco Eastman M.D., F.A.C.S. Orders Orders: Colonoscopy Today K57.92 Coding Level of Care Code 42153 Diagnoses Sigmoid diverticulitis K57.32 04/18/19 1036 <Electronically signed by Pacheco olson MD> Date _ Pacheco Eastman MD
[2019-05-03 09:41] VITALS: BMI 38.4
[2019-05-05] VITALS (12 sets, daily range): BP systolic 92–164; BP diastolic 56–91; PULSE 53–65; RESP 14–16; TEMP 36.4–37.5; O2SAT 91–100
--- NOTE | 2019-05-05 09:00 | OP.ENDO_ITS ---
05/05/2019 Adiel Foster [address] [place] [address] Re : Colonoscopy procedure for Radha Malcolm Dear Dr. Foster This procedure was performed on Sunday, May 05, 2019. My impressions and recommendations are as follows: Impressions : - Hemorrhoids found on perianal exam. - Diverticulosis in the sigmoid colon, in the descending colon and at the splenic flexure. - The examination was otherwise normal. - No specimens collected. Recommendations : - Discharge patient to home. - Resume previous diet. - Continue present medications. - Repeat colonoscopy in 10 years for screening purposes. We will proceed with definitive surgery for diverticulitis in 3 days. My findings are described in the full procedure note, which is enclosed. If I can be of further assistance, please feel free to contact me at Doctor phone number(s): Work: . Sincerely, Pacheco Foster MD 05/05/2019 9:00:04 AM This report has been signed electronically.
== END 2019-05-05 10:03 | disposition home or self-care (01) ==
LOC: EN 07:18 → AC 07:19
PROVIDERS: Family Provider Family Medicine; PCP Family Medicine; Referring Provider Family Medicine; Visit Provider Surgery
PROC: 0DJD8ZZ Inspection of Lower Intestinal Tract, Via Natural or Artificial Opening Endoscopic (ICD-10-PCS; CPT 45378; principal; 2019-05-05 08:25)
DX: K64.9 Unspecified hemorrhoids (principal); K57.32 Diverticulitis of large intestine without perforation or abscess without bleeding; K57.30 Diverticulosis of large intestine without perforation or abscess without bleeding; K21.9 Gastro-esophageal reflux disease without esophagitis; I10 Essential (primary) hypertension; Z79.899 Other long term (current) drug therapy
CPT/HCPCS: 99152; G0121; 99153; J7120

== ENCOUNTER 2019-05-08 05:27 | Inpatient (IN) | payer MEDICARE, OTHER, SELFPAY ==
[2019-04-18 07:21] VITALS: BMI 38.4
--- NOTE | 2019-04-18 10:04 | HP_ITS ---
Intake Vital Signs 04/18/19 Body Mass Index (BMI) 38.4 Intake Visit Reasons: DIVERTICULITUS/PATIENT WANTED Sera EASTMAN Chief Complaint: recurrent diverticulitis Supervisor Coating Required: No Is patient in pain?: No Allergies codeine Adverse Reaction (Verified 04/18/19 07:19) Vomiting lisinopril Adverse Reaction (Verified 04/18/19 07:19) Other YELLOW JACKETS Allergy (Uncoded 04/10/19 16:38) Rash Medications Bisoprol/Hydrochlorothiazide [Ziac 5/6.25 MG (Beta Kaiden)] 1 tab PO DAILY 09/19/15 [History Confirmed 04/18/19] Hydrochlorothiazide 12.5 mg PO DAILY 04/10/19 [History Confirmed 04/18/19] metroNIDAZOLE [Flagyl] 500 mg PO Q6H #60 tab 04/10/19 [Rx Confirmed 04/18/19] krill oil 500 mg capsule mg PO cap 04/18/19 [History Confirmed 04/18/19] potassium chloride ER 20 mEq tablet,extended release 20 meq PO BID 04/18/19 [History Confirmed 04/18/19] turmeric 400 mg capsule mg PO cap 04/18/19 [History Confirmed 04/18/19] Is last menstrual period known: No Post menopausal: No Patient : No PFSH Medical History (Updated 04/18/19 @ 10:32 by Pacheco Eastman MD) Hypertension (Chronic) Diverticulitis (Acute) GERD (gastroesophageal reflux disease) (Acute) Hemorrhoid (Acute) Sleep apnea (Acute) Surgical History (Updated 04/18/19 @ 07:16 by Pamella Ding) History of colonoscopy (Acute ~2010) History of dilation and curettage (Acute) History of elbow surgery (Acute) History of esophagogastroduodenoscopy (EGD) (Acute ~2015) History of tubal ligation (Acute) Family History (Updated 04/18/19 @ 07:18 by Pamella Ding) Father Diabetes Heart disease Mother Diabetes Brother Cancer esophageal and brain Diverticulitis Brother Diverticulitis Social History (Updated 04/18/19 @ 10:36 by Pacheco Eastman MD) Smoking Status: Never smoker HPI HPI HPI: EVELIA NUENZ, is a 68 F who presents to the office today for HPI HPI Surgical H&P: Yes HPI: EVELIA NUNEZ, is a 68 F who presents to the office today for surgical consultation regarding repetitive episodes of diverticulitis. She had her first bout of pain March 08, 2019 was seen at the [facility] emergency room. That time a CT scan was consistent with acute sigmoid diverticulitis. She was placed on ciprofloxacin and metronidazole. After course of that however within a week she had recurrent pain. She return to the emergency room and on March 27, [address] scan continued to show diverticulosis with thickening of the colon wall pericolonic inflammation consistent with acute sigmoid diverticulitis. This is in the proximal sigmoid colon/descending colon. It was felt to be very similar to the previous study of March 08, 2019. The patient was treated with Augmentin. Then the patient after that course of treatment return to see primary care and again was having problems with nausea and abdominal pain. Laboratory obtained demonstrated potassium of 3.3. White blood cell count hemoglobin normal. She was placed on Bactrim and metronidazole and surgical referral is being made. Her most recent colonoscopy was performed by myself on December 28, 2014. That was performed for screening. It was a technically challenging exam secondary to tortuosity of the bowel. No acute findings identified other than for the diverticulosis. Repeat screening exam in 10 years recommended. It is of note that in the interim on September 01, 2016 Dr. Eliu Montoya performed an upper endoscopy for the patient for dysphasia and heartburn. Clinical findings at that time suggested reflux esophagitis normal stomach normal duodenum and recommendations for omeprazole therapy were made. Gastric biopsies were not remarkable. There is felt to be minimal chronic inflammation of the distal esophagus suggestive of GE reflux. H. pylori was negative Patient notes that she is currently on Bactrim therapy twice a day and metronidazole therapy 4 times a day. She believes that the metronidazole decreases her appetite. She still however does note some left mid abdominal discomfort. She denies fever or chills or sweats. ROS General General: Yes fatigue; no weight change, appetite, colon cancer, breast cancer or weakness HEENT HEENT: No difficulty swallowing, eye injury, eye surgery, swollen glands or hoarseness Endo Endocrine: No thyroid disease, diabetes mellitus, thyroid cancer, Hair loss, heat intolerance or cold intolerance Cardio Cardiovascular: Yes high blood pressure; no murmur, pacemaker, heart disease, atrial fibrillation, heart attack, heart stent, palpitations, shortness of breat with exertion or chest pain Resp Respiratory: No shortness of breath, Yes sleep apnea, No cough, No COPD, No asthma, No emphysema, No wheezing Gastro Gastrointestinal: Yes abdominal pain, Yes nausea or vomiting, No diarrhea, Yes constipation, No blood in stool, Yes acid reflux, Yes hemorrhoids, No ulcers, No gallbladder problem, No black,tarry stools Austyn Hematologic: No blood thinners, No blood disorders, No bleeding, No anemia, No blood clots Neuro Neurologic: No weakness Exam Const General: cooperative, healthy appearing, comfortable, no acute distress Nutritional Appearance: obese Orientation: alert, awake, oriented x3 HENMT Head: normal to inspection Eyes General: appearance normal, both eyes and all related structures Neck Neck: normal visual inspection Chest Chest palpation & inspection: normal inspection of the chest Resp Effort & Inspection: normal respiratory effort Auscultation: clear to auscultation bilaterally Cardio Rate: regular rate Rhythm: regular rhythm Heart Sounds: no murmurs GI Palpation: soft Auscultation: normal bowel sounds Other: Soft, normal bowel sounds, fullness and mild tenderness noted in the left lateral mid abdomen and lower quadrant, no guarding or rebound Skin Lesions: no lesions Neuro Cognition: normal cognition Extrem General: no calf tenderness bilaterally Psych Affect: normal affect Assessment & Plan Problems 1. Sigmoid diverticulitis K57.32 Plan 68-year-old female. She is currently on her third course of antibiotics for chronic non-resolving sigmoid diverticulitis. On CT imaging this process is in the more proximal sigmoid colon possibly easing part of the descending colon. My current antibiotic recommendations for her are to continue her Bactrim twice daily and the patient is asking to have her metronidazole cut down to 3 times daily which I believe is reasonable. She does not particularly like the metronidazole. Every time she has ceased antibiotic she has had recurrence of symptoms. I am recommending to her a colonoscopy and then if otherwise uneventful a laparoscopic sigmoid colectomy. In detail I discussed the technique, benefit, risks, alternatives. Because of the location of the acute inflammation I suspect that she will require mobilization of the splenic flexure. This is certainly technically more demanding. She may require conversion to an assisted or open procedure. She is well aware of the potential risk for comp colostomy or diverting ileostomy. She is aware of the potential utilization of a transverse supra pubic incision versus a midline incision. She has had an opportunity to ask and have questions answered. We will utilize a enhanced recovery program. At the completion of her current antibiotics we will have her continue on Augmentin 875 mg twice daily until surgery to hopefully avoid an acute exacerbation. Clearly I do not believe that she is ever resolving her diverticulitis despite now 3 courses of antibiotics. I do believe that surgical treatment is indicated in this situation. We will schedule and proceed at her discretion. Increased operative time will be required because of the complexity of the procedure. I very much appreciate the kind opportunity of assisting with her surgical care CC: Karuna Ho, VANDANA and Dr. Adiel Eastman, III Pacheco Eastman M.D., F.A.C.S. Orders Orders: Colonoscopy Today K57.92 Coding Level of Care Code 85255 Diagnoses Sigmoid diverticulitis K57.32 04/18/19 1036 <Electronically signed by Pacheco olson MD> Date _ Pacheco Eastman MD I have re-examined the patient. There are no clinical changes since date of exam.
--- NOTE | 2019-05-02 09:25 | EKG12_ITS ---
Test Reason : PRE OP Blood Pressure : / mmHG Vent. Rate : 060 BPM Atrial Rate : 060 BPM P-R Int : 180 ms QRS Dur : 084 ms QT Int : 398 ms P-R-T Axes : 044 003 014 degrees QTc Int : 398 ms Normal sinus rhythm Low voltage QRS Septal infarct , age undetermined Abnormal ECG Confirmed by ISAAC STILES ([id number]), editor city ALFONZO SULTANA ([id number]) on 05/04/2019 10:00:54 AM Referred By: Pacheco Foster Confirmed By:ISAAC STILES
[2019-05-02 09:47] LABS: Hematocrit 40.5 % (37-47); Hemoglobin 13.2 g/dL (12.0-15.0); Mean Corp Hgb Conc 32.6 g/dL (32-36); Mean Corpuscular Hgb 27.7 pg (27.0-32.0); Mean Corpuscular Volume 84.9 fL (81-99); Mean Platelet Vol. 10.9 fl (6.2-12.0); Platelet Count 221 K/mm3 (150-450); RBC Distribution Width CV 14.2 % (11.6-14.6); RBC Distribution Width SD 43.7 fl (35.1-43.9); Red Blood Count 4.77 M/mm3 (4.2-5.4); White Blood Count 7.2 K/mm3 (4.4-11.0)
[2019-05-03 09:41] VITALS: BMI 38.4
[2019-05-08] VITALS (15 sets, daily range): BP systolic 108–138; BP diastolic 61–77; PULSE 48–63; RESP 12–18; TEMP 35.8–36.9; O2SAT 96–100; BMI 37.9
--- NOTE | 2019-05-08 | COL_PTH ---
PATIENT: EVELIA NUNEZ LOC: [facility]3 U#:[id number] AGE/SX: 68/F ROOM: [facility]314 RE05/08/[address]: Dr. Pacheco Foster MD : 1950 BED: 1 DIS: 05/10/2019 SPEC #: [id number] RECD: 05/08/19 13:36 STATUS: NIKKO ESQUIVEL #: [id number] PAKO: 05/08/19 00:[address]: aPcheco Foster DEPT: SURGICAL PATHOLOGY RECD BY: Gómez Navarro ENTERED: 05/08/19 13:37 SP TYPE: COLON OTHR DR: Dr. Adiel Foster III, MD Tissues: A - Colon, NOS B - Colon Donuts C - Colon Donuts Procedures: Surgery Specimen Level III Surgery Specimen Level V HEADER OPERATION: ERAS, laparoscopic sigmoid colectomy PRE-OP DIAGNOSIS: Sigmoid diverticulitis K57.32 TISSUE SUBMITTED: A - Sigmoid colon, B - Sigmoid donut (proximal), C - Rectal donut (distal) MICROSCOPIC DIAGNOSIS A. Sigmoid colon, colectomy: Diverticulosis. Four pericolonic lymph nodes with reactive changes. B. Sigmoid donut: Colonic donut, no pathologic diagnosis. C. Rectal donut: Colonic donut, no pathologic diagnosis. SJ:doris 05/10/19 MICROSCOPIC DESCRIPTION Slides are reviewed. GROSS DESCRIPTION A - Received in fixative is one container labeled with the patient's name and designated sigmoid colon. The specimen consists of a 22.5 cm segment of bowel loop with attached fibrofatty tissue. No gross perforation is identified. Serial sections reveal multiple diverticula, none of which appear to have perforated through the bowel wall. Operations Lieutenant sections are submitted as follows: 1 - mucosal margin at open end, 2 - mucosal margin at stapled end, 3-5 - diverticula, 6 - possible lymph nodes. / AM:sp 05/09/19 B - Received in fixative is one container labeled with the patient's name and designated sigmoid donut. The specimen consists of a smooth, glistening mucosal donut measuring 2.2 cm in diameter and 1 cm in thickness. No mucosal mass lesions are identified. Operations Lieutenant sections are submitted in one cassette. / AM:ginger 05/08/19 C - Received in fixative is one container labeled with the patient's name and designated rectal donut. The specimen consists of a smooth, glistening mucosal donut measuring 2 cm in diameter and 1 cm in thickness. No mucosal mass lesions are identified. Operations Lieutenant sections are submitted in one cassette. / AM:ginger 05/08/19 TC:5 CPT: 16302, 17901 x2
--- NOTE | 2019-05-08 05:55 | PCM.HP.BLA ---
Problem List (1) Sigmoid diverticulitis Status: Acute History and Physical Date of Admission: 05/08/19 Intake Visit Reasons: DIVERTICULITUS/PATIENT WANTED Sera EASTMAN Chief Complaint: recurrent diverticulitis Optical Element Coater Required: No Is patient in pain?: No Allergies codeine Adverse Reaction (Verified 04/18/19 07:19) Vomiting lisinopril Adverse Reaction (Verified 04/18/19 07:19) Other YELLOW JACKETS Allergy (Uncoded 04/10/19 16:38) Rash Medications Bisoprol/Hydrochlorothiazide [Ziac 5/6.25 MG (Beta Kaiden)] 1 tab PO DAILY 09/19/15 [History Confirmed 04/18/19] Hydrochlorothiazide 12.5 mg PO DAILY 04/10/19 [History Confirmed 04/18/19] metroNIDAZOLE [Flagyl] 500 mg PO Q6H #60 tab 04/10/19 [Rx Confirmed 04/18/19] krill oil 500 mg capsule mg PO cap 04/18/19 [History Confirmed 04/18/19] potassium chloride ER 20 mEq tablet,extended release 20 meq PO BID 04/18/19 [History Confirmed 04/18/19] turmeric 400 mg capsule mg PO cap 04/18/19 [History Confirmed 04/18/19] Is last menstrual period known: No Post menopausal: No Patient : No PFSH Medical History (Updated 04/18/19 @ 10:32 by Pacheco Eastman MD) Hypertension (Chronic) Diverticulitis (Acute) GERD (gastroesophageal reflux disease) (Acute) Hemorrhoid (Acute) Sleep apnea (Acute) Surgical History (Updated 04/18/19 @ 07:16 by Pamella Ding) History of colonoscopy (Acute ~2010) History of dilation and curettage (Acute) History of elbow surgery (Acute) History of esophagogastroduodenoscopy (EGD) (Acute ~2015) History of tubal ligation (Acute) Family History (Updated 04/18/19 @ 07:18 by Pamella Ding) Father Diabetes Heart disease Mother Diabetes Brother Cancer esophageal and brain Diverticulitis Brother Diverticulitis Social History (Updated 04/18/19 @ 10:36 by Pacheco Eastman MD) Smoking Status: Never smoker HPI HPI HPI: EVELIA NUNEZ, is a 68 F who presents to the office today for HPI HPI Surgical H&P: Yes HPI: EVELIA NUNEZ, is a 68 F who presents to the office today for surgical consultation regarding repetitive episodes of diverticulitis. She had her first bout of pain March 08, 2019 was seen at the [facility] [place] emergency room. That time a CT scan was consistent with acute sigmoid diverticulitis. She was placed on ciprofloxacin and metronidazole. After course of that however within a week she had recurrent pain. She return to the emergency room and on March 27, [address] scan continued to show diverticulosis with thickening of the colon wall pericolonic inflammation consistent with acute sigmoid diverticulitis. This is in the proximal sigmoid colon/descending colon. It was felt to be very similar to the previous study of March 08, 2019. The patient was treated with Augmentin. Then the patient after that course of treatment return to see primary care and again was having problems with nausea and abdominal pain. Laboratory obtained demonstrated potassium of 3.3. White blood cell count hemoglobin normal. She was placed on Bactrim and metronidazole and surgical referral is being made. Her most recent colonoscopy was performed by myself on December 28, 2014. That was performed for screening. It was a technically challenging exam secondary to tortuosity of the bowel. No acute findings identified other than for the diverticulosis. Repeat screening exam in 10 years recommended. It is of note that in the interim on September 01, 2016 Dr. Eliu Montoya performed an upper endoscopy for the patient for dysphasia and heartburn. Clinical findings at that time suggested reflux esophagitis normal stomach normal duodenum and recommendations for omeprazole therapy were made. Gastric biopsies were not remarkable. There is felt to be minimal chronic inflammation of the distal esophagus suggestive of GE reflux. H. pylori was negative Patient notes that she is currently on Bactrim therapy twice a day and metronidazole therapy 4 times a day. She believes that the metronidazole decreases her appetite. She still however does note some left mid abdominal discomfort. She denies fever or chills or sweats. ROS General General: Yes fatigue; no weight change, appetite, colon cancer, breast cancer or weakness HEENT HEENT: No difficulty swallowing, eye injury, eye surgery, swollen glands or hoarseness Endo Endocrine: No thyroid disease, diabetes mellitus, thyroid cancer, Hair loss, heat intolerance or cold intolerance Cardio Cardiovascular: Yes high blood pressure; no murmur, pacemaker, heart disease, atrial fibrillation, heart attack, heart stent, palpitations, shortness of breat with exertion or chest pain Resp Respiratory: No shortness of breath, Yes sleep apnea, No cough, No COPD, No asthma, No emphysema, No wheezing Gastro Gastrointestinal: Yes abdominal pain, Yes nausea or vomiting, No diarrhea, Yes constipation, No blood in stool, Yes acid reflux, Yes hemorrhoids, No ulcers, No gallbladder problem, No black,tarry stools Austyn Hematologic: No blood thinners, No blood disorders, No bleeding, No anemia, No blood clots Neuro Neurologic: No weakness Exam Const General: cooperative, healthy appearing, comfortable, no acute distress Nutritional Appearance: obese Orientation: alert, awake, oriented x3 HENMT Head: normal to inspection Eyes General: appearance normal, both eyes and all related structures Neck Neck: normal visual inspection Chest Chest palpation & inspection: normal inspection of the chest Resp Effort & Inspection: normal respiratory effort Auscultation: clear to auscultation bilaterally Cardio Rate: regular rate Rhythm: regular rhythm Heart Sounds: no murmurs GI Palpation: soft Auscultation: normal bowel sounds Other: Soft, normal bowel sounds, fullness and mild tenderness noted in the left lateral mid abdomen and lower quadrant, no guarding or rebound Skin Lesions: no lesions Neuro Cognition: normal cognition Extrem General: no calf tenderness bilaterally Psych Affect: normal affect Assessment & Plan Problems 1. Sigmoid diverticulitis K57.32 Plan 68-year-old female. She is currently on her third course of antibiotics for chronic non-resolving sigmoid diverticulitis. On CT imaging this process is in the more proximal sigmoid colon possibly easing part of the descending colon. My current antibiotic recommendations for her are to continue her Bactrim twice daily and the patient is asking to have her metronidazole cut down to 3 times daily which I believe is reasonable. She does not particularly like the metronidazole. Every time she has ceased antibiotic she has had recurrence of symptoms. I am recommending to her a colonoscopy and then if otherwise uneventful a laparoscopic sigmoid colectomy. In detail I discussed the technique, benefit, risks, alternatives. Because of the location of the acute inflammation I suspect that she will require mobilization of the splenic flexure. This is certainly technically more demanding. She may require conversion to an assisted or open procedure. She is well aware of the potential risk for comp colostomy or diverting ileostomy. She is aware of the potential utilization of a transverse supra pubic incision versus a midline incision. She has had an opportunity to ask and have questions answered. We will utilize a enhanced recovery program. At the completion of her current antibiotics we will have her continue on Augmentin 875 mg twice daily until surgery to hopefully avoid an acute exacerbation. Clearly I do not believe that she is ever resolving her diverticulitis despite now 3 courses of antibiotics. I do believe that surgical treatment is indicated in this situation. We will schedule and proceed at her discretion. Increased operative time will be required because of the complexity of the procedure. I very much appreciate the kind opportunity of assisting with her surgical care CC: Karuna Ho, VANDANA and Dr. Adiel Eastman, III Pacheco Eastman M.D., F.A.C.S. Orders Orders: Colonoscopy Today K57.92 Coding Level of Care Code 81961 Diagnoses Sigmoid diverticulitis K57.32 04/18/19 1036 <Electronically signed by Pacheco Eastman MD> Date Pacheco Eastman MD On May 05, 2019 the patient had a colonoscopy performed. This demonstrated extensive diverticulosis of the sigmoid and descending colon. Stricturing was not identified at that time. She tolerated the procedure well. She presents now for anticipated laparoscopic left colectomy for recurrent non-resolving diverticulitis of the distal descending colon. She is aware of the technique, benefits, risks, alternatives. We will proceed as noted. Pacheco Eastman M.D., F.A.C.S.
[2019-05-08] MEDS: Acetaminophen 500 MG Tablet 1000 MG PO ×3 (06:22→23:53)
[2019-05-08] MEDS: Gabapentin 600 MG Tablet PO (06:22)
[2019-05-08] MEDS: Magnesium Sulfate 4gm/100mL 4 GM/100 ML IV.SOLN. IV (06:22)
[2019-05-08] MEDS: Lactated Ringers 1,000 ML 40 ML IV ×2 (06:23→15:59)
[2019-05-08] MEDS: Bupivacaine 0.25% 30 ML Vial (07:00)
--- NOTE | 2019-05-08 07:04 | PCM.DC.GS ---
<Pacheco Foster - Last Filed: 05/08/19 07:04> Discharge Diet: Light diet - advance as tolerated - if you have questions about your diet instructions, please talk to you doctor. Discharge Activity: May Not Drive - for 5-7 days or while taking narcotic pain medicine. May shower in (days): 1 Lifting Restrictions: 10 pounds Call your doctor if your incision/area has: Continuous Slow Oozing, Sudden Increased Bleeding, Increased Pain/ Swelling, Increased Redness, Foul Smelling Discharge Call your doctor if you observe: Fever of 101 or Higher Suture Line Care: Avoid Pulling/Pushing, Avoid Pinching/Bending Additional Dressing/Incision Instructions:: Change or remove dressing in 2 days. Leave steri-strips in place for 1 week. Allergies/Adverse Reactions: Allergies codeine Adverse Reaction (Verified 05/03/19 09:40) Vomiting lisinopril Adverse Reaction (Verified 05/03/19 09:40) Other COUGH YELLOW JACKETS Allergy (Uncoded 05/03/19 09:40) Rash Medications to take at Discharge Bisoprol/Hydrochlorothiazide [Ziac 5/6.25 MG (Beta Kaiden)] 1 tab PO DAILY 09/19/15 Hydrochlorothiazide 12.5 mg PO DAILY 04/10/19 krill oil 500 mg capsule 1 cap PO DAILY cap 04/18/19 turmeric 400 mg capsule 1 cap PO DAILY cap 04/18/19 Amoxicillin/Potassium Clav [Augmentin 875-125 Tablet] 1 ea PO BID 05/01/19 Hydrocodone Bitart/Apap 5-325 [Haines 5MG-325MG] 1 tab PO Q6H PRN PRN 3 Days #10 tab 05/10/19 The following prescriptions were given: Hydrocodone Bitart/Apap 5-325 [Haines 5MG-325MG] 1 tab PO Q6H PRN PRN 3 Days #10 tab PRN Reason: Pain Transmission Status: Received by [id number] Primary Care Physician: Adiel Foster III, MD [Primary Care Provider] - Test Results: Test results from this visit will be discussed in further detail at your follow-up appointment, if applicable. Please Follow Up With: Pacheco Foster MD - [phone] When: Call to make an appointment to be seen in about 10 days. <Va Saleh - Last Filed: 05/10/19 09:15> Discharge Diet: Light diet - advance as tolerated, - - Follow Transitional diet recommendations until follow-up in the office Discharge Activity: May Not Drive Additional Instructions: May use Aleve or ibuprofen as needed for pain according to instructions on the bottle Test Results: Test results from this visit will be discussed in further detail at your follow-up appointment, if applicable. Proposed Discharge Date: 05/10/19
[2019-05-08 07:41] LABS: Bedside Glucose 96 mg/dL (70-110)
[2019-05-08] MEDS: Lidocaine/D5W 2,000 MG/250 ML IV.SOLN 2000 MG (07:50)
[2019-05-08] MEDS: BUPIVACAINE LIPOSOME/PF 20 ML VIAL OPERA.SITE (11:23)
--- NOTE | 2019-05-08 11:30 | PCM.OPRPT ---
Problem List (1) Sigmoid diverticulitis Status: Acute Report of Operation Date of Procedure: 05/08/19 Pre-Operative Diagnosis: Recurrent distal descending proximal sigmoid diverticulitis Post-Operative Diagnosis: Same Surgery/Procedure Performed:: Laparoscopic left colectomy with mobilization of the splenic flexure Description of Surgical Findings:: Timeout and informed consent was obtained. 68-year-old female taken out from placement table underwent general endotracheal intubation anesthesia. She was placed on a beanbag in low lithotomy position. Cefotetan 2 g were given intravenously preoperatively. Ames catheter was placed. The abdomen and perineum were sterilely prepped and draped. Ioban draping was used as well. To the right and slightly superior of the umbilicus and the trocar was inserted under Visiport technology. Clean access was achieved. The abdomen was insufflated with CO2 to a pressure of 10 mmHg pressure. Throughout the procedure Exparel 20 cc was diluted with 30 cc of 0.25% Marcaine and then diluted 200 cc with saline was used as a local anesthetic. 2 more 5 mm incision was made in the right lower quadrant. Inspection revealed an extraordinarily heavy omentum hanging down over the entire descending and sigmoid colon. There was evidence of adhesions to the left pelvic sidewall evidence of inflammation. There was evidence of a previous tubal ligation. The sigmoid colon was carefully freed from the pelvic sidewall using the Enseal device and sharp dissection. Having mostly achieved that I then spent much of my time up at the splenic flexure. The greater omentum was adherent over the transverse colon and adherent to the sigmoid and descending colon so I had to transect that using the Enseal device until I could get access to the splenic flexure. The gastrocolic omentum was then freed from the mid to distal transverse colon. I put an additional 5 Bowman trocar in the left midabdomen. Working both incising the white line of Toldt and freeing the distal transverse colon I was able to see the splenorenal attachments and transected that with the Enseal device was then able to nicely mobilize the splenic flexure of the colon did further dissection the elevated attachments to the retroperitoneum and bring it across closer to the midline. I then dissected inferiorly back down to the pelvis where I then had a nice amount of colon mobilized. The indurated area was in the mid to proximal sigmoid. I transected the sigmoid colon mesentery close to the bowel wall at the pelvic brim took that distally to the peritoneal reflection. Then did retrograde dissection with the Enseal device. Where needed inferior mesenteric vessels were secured with hemo-lock clips prior to transecting it. I mobilized the mesentery proximal to the area of acute induration and inflammation of the proximal sigmoid. I then estimated the length of the mobilization felt that I had enough mobilization. There is been no injury to the bowel. There was no abscess. There is been no cloudy fluid in the pelvis no evidence of purulence but there was evidence of induration. I exchange the right lower quadrant final trocar for a 10 mm trocar inserted a [place] with a cold load and with 2 firings transected the rectosigmoid at the peritoneal reflection. That staple line appeared to be intact. I then grasped the distal sigmoid made a Pfannenstiel incision down through the skin subtenons tissue transected the rectus fascia transversely incised the rectus muscle vertically placed a small wound protector exited the sigmoid colon at the appropriate location I finished transecting the mesentery with hemostats and the Enseal device were interrupted 4-0 silk suture were indicated. I placed a Koker clamp across the sigmoid transected it submitted the specimen. I placed a whip suture of 2-0 Prolene in the distal sigmoid and secured that around the 33 mm anvil. At end was stabbed with sterile Betadine placed back within the abdomen. Dacron tape was used to secure the wound protector. I irrigated the rectum with dilute Betadine solution inserted sizers and then inserted the circular anastomotic stapler and was able to get that come up to the staple line however there appeared to be some tension on the staple line so I took it out through the anterior rectal wall. So that trocar exit cleanly mediated to the ample make sure the bowel was not twisted approximately the 2 and then I fired the stapler. I released the staple removed it inspected the donuts were completely intact. Placed a rigid sigmoidoscope in the rectum inspected staple line was completely intact placed fluid within the abdomen insufflated with fluid and noted that that also was without any air leak. Excess fluid and air was aspirated free the colon was allowed to decompress. Going appear to have a good positional lie. There did not appear to be any attention. The pelvis was irrigated. Couple little bleeders on the left pelvic sidewall was secured with Hem-o-galilea clips. All areas appeared to be intact. The greater omentum was placed overlying the bowel. The telemeter trocar site and right lower quadrant was closed with a running suture in a simple suture of 0 Vicryl. Trochars removed under visualization the abdomen was allowed to deflate the CO2. It is of note that prior to transecting the colon I did do a bilateral tap block this was done under lap scopic visualization I used 70 cc of the local solution bilaterally under direct laparoscopic visualization into the transversus abdominis plane. [place] that I had good block bilateral. Now at the completion the peritoneum supraumbilically was closed with a running 0 Vicryl. The anterior rectus sheath was closed with a running 0 PDS. Skin edges were approximated running or interrupted dermal 4-0 Monocryl. Steri-Strips Telfa and OpSite dressings applied. Sponge and instrument and needle counts were reported to the surgeon to be correct. Specimens sigmoid colon/left colon. Drains none. Blood loss 50 cc. The patient was taken to the recovery area in satisfactory condition without apparent complication. Pacheco Foster M.D., F.A.C.S. Type of Anesthesia:: General Anesthesiologist: Misbah Stevenson
--- NOTE | 2019-05-08 12:51 | SUR.PHASEI ---
EXTUBATED AT 1250 WITHOUT DIFFICULTY. PLACED ON SIMPLE MASK AT 6 L/NC. PATIENT IS DROWSY.
[2019-05-08] MEDS: Ketorolac 15 MG/ML Vial IV ×2 (16:04→21:36)
[2019-05-08] MEDS: 0.9% NaCl Peripheral Flush Adult/Peds IV (16:04)
[2019-05-08] MEDS: Docusate Sodium 100 MG Capsule PO (21:34)
--- NOTE | 2019-05-08 21:58 | NURSING ---
Pt up and ambulating in room at this time.
[2019-05-09] MEDS: Ketorolac 15 MG/ML Vial IV ×4 (04:06→21:00)
[2019-05-09 04:09] VITALS: BP 115/58; PULSE 64; RESP 16; TEMP 37.1; O2SAT 95
--- NOTE | 2019-05-09 04:20 | NURSING ---
Pt up ambulating in hallway at this time.
--- NOTE | 2019-05-09 05:40 | PCM.PN.SRG ---
Objective: Pt has only been OOB to chair with minimal ambulation No flatus - Physical Exam General: Alert, No apparent distress Lungs: Clear to auscultation Abdomen: Soft, Bowel Sounds Not Present, Distended Vital Signs Temp Pulse Resp BP Pulse Ox 98.7 F 64 16 115/58 L 95 05/09/19 04:09 05/09/19 04:09 05/09/19 04:09 05/09/19 04:09 05/09/19 04:09 Oxygen Flow Rate (L/min) 2 Oxygen Delivery Method Nasal Cannula Weight: 214 lb 1.102 oz Body Mass Index (BMI) 37.9 Intake and Output for Last 24 Hours 05/07/19 05/08/19 05/09/19 23:59 23:59 23:59 Intake Total 3084 / 3806 722 / 722 Output Total 435 / 635 200 / 200 Balance 2649 / 3171 522 / 522 POC Glucose 05/08/19 06:07 POC Glucose 96 Medical Necessity - Tobacco Use Smoking Status: Never smoker Assessment/Plan All Active Problems (Last Reviewed 05/03/19 @ 09:40 by Yusra Balderas) Sigmoid diverticulitis (Acute) Pt definitely encourage to mobilize! Will hold at clears
[2019-05-09 06:00] VITALS: O2SAT 95
[2019-05-09] MEDS: Acetaminophen 500 MG Tablet 1000 MG PO ×3 (06:11→19:14)
--- NOTE | 2019-05-09 06:16 | NURSING ---
Pt cardona catheter removed at this time. P tolerated well.
[2019-05-09 06:32] LABS: Hematocrit 35.6 % (37-47); Hemoglobin 11.7 g/dL (12.0-15.0); Mean Corp Hgb Conc 32.9 g/dL (32-36); Mean Corpuscular Hgb 28.3 pg (27.0-32.0); Mean Corpuscular Volume 86.2 fL (81-99); Mean Platelet Vol. 11.3 fl (6.2-12.0); Platelet Count 169 K/mm3 (150-450); RBC Distribution Width CV 13.9 % (11.6-14.6); RBC Distribution Width SD 43.6 fl (35.1-43.9); Red Blood Count 4.13 M/mm3 (4.2-5.4); White Blood Count 8.3 K/mm3 (4.4-11.0)
[2019-05-09 06:50] VITALS: O2SAT 93
[2019-05-09 06:52] LABS: Anion Gap 7 (5-15); BUN 6 mg/dL (7-18); BUN/Creat Ratio 7.6 RATIO (10-20); Calcium,Total 8.2 mg/dL (8.5-10.1); Chloride 106 mmol/L (98-107); Creatinine, Serum 0.79 mg/dL (0.55-1.02); EST Glomerular Filtration Rate 77 mL/min (>60); Est Glom Filt Rate - Afr Amer 93 mL/min (>60); Estimated Creatinine Clearance 45.16 ml/min; Glucose 102 mg/dL (74-106); Potassium 3.1 mmol/L (3.5-5.1); Sodium Level 141 mmol/L (136-145)
[2019-05-09 08:19] VITALS: BP 110/48; PULSE 63; RESP 16; TEMP 36.6; O2SAT 97
[2019-05-09] MEDS: Enoxaparin 40 MG/0.4 ML Syringe SC (09:57)
[2019-05-09] MEDS: Docusate Sodium 100 MG Capsule PO (09:57)
[2019-05-09] MEDS: 0.9% NaCl Peripheral Flush Adult/Peds IV ×3 (10:00→20:59)
--- NOTE | 2019-05-09 11:41 | NS ---
When PO diet advanced to full liquids, adjust ONS to Ensure Surgery 240mL TID per ERAS protocol.
--- NOTE | 2019-05-09 12:34 | CASEMGMT ---
RN CM Assessment Presentation: Hemicolectomy Intro role of CM and purpose of RN CM assessment to patient. Pt is awake, alert, sitting in chair and able to participate in assessment. Demographics, PCP and Pharmacy verified. Pt states she hopes to return home tomorrow and does not anticipate any dc needs at this time. Her is home and will assist her. PCP: Dr. Adiel Foster III Specialists: Dr. Pacheco Foster Preferred Pharmacy: [facility] Insurance: [facility] Prescription Benefit: yes LNOK: Donnie Malcolm Living Arrangements: Lives independently. 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 Transportation: Drives, can drive. DME: Cpap ([email or web address]). No preference on DME company HHC: none Patient DC goals: Home DC PLAN: Home on discharge with family support. Cezar SELF RN ACM
[2019-05-09 14:30] VITALS: BP 124/54; PULSE 72; RESP 18; TEMP 36.8; O2SAT 98
[2019-05-09] MEDS: Calcium Carbonate 500 MG Tablet 1000 MG PO (15:42)
--- NOTE | 2019-05-09 15:47 | PCM.PN.BLA ---
Progress Note Patient evaluated this afternoon. She tolerated the transitional diet for lunch without nausea or vomiting. She noted abdominal cramping. She has noted urgency with stool and loose stool. Discussed with patient about discharge today. She would feel more comfortable waiting until tomorrow for discharge. Discussed with Dr. Foster and he is agreeable. TUMs were ordered for patient due to heartburn symptoms after eating.
[2019-05-09] MEDS: Ondansetron ODT 4 MG Tablet PO (17:20)
[2019-05-09 20:53] VITALS: BP 146/72; PULSE 68; RESP 16; TEMP 36.7; O2SAT 94
[2019-05-09] MEDS: Diphenoxylate/Atrop 1 Tablet PO (20:59)
[2019-05-09] MEDS: Ensure Surgery 237 ML LIQUID PO (20:59)
[2019-05-10 00:04] VITALS: BP 128/51; PULSE 68; RESP 16; TEMP 36.9; O2SAT 93
[2019-05-10] MEDS: Acetaminophen 500 MG Tablet 1000 MG PO ×2 (00:05→06:21)
[2019-05-10] MEDS: Calcium Carbonate 500 MG Tablet 1000 MG PO (00:05)
[2019-05-10] MEDS: Ensure Surgery 237 ML LIQUID PO (05:29)
[2019-05-10 05:33] VITALS: BP 154/82; PULSE 73; RESP 16; TEMP 36.4; O2SAT 94
--- NOTE | 2019-05-10 06:18 | PCM.PN.SRG ---
Subjective: Pt notes generalized soreness, increased soreness RLQ. No diarrhea since single lomotil No fever No nausea - Physical Exam Lungs: Clear to auscultation Abdomen: Bowel Sounds Present - wounds clean, Soft, Distended Vital Signs Temp Pulse Resp BP Pulse Ox 97.6 F L 73 16 154/82 H 94 05/10/19 05:33 05/10/19 05:33 05/10/19 05:33 05/10/19 05:33 05/10/19 05:33 Oxygen Flow Rate (L/min) 2 Oxygen Delivery Method Room Air Weight: 214 lb 1.102 oz Body Mass Index (BMI) 37.9 Intake and Output for Last 24 Hours 05/08/19 05/09/19 05/10/19 23:59 23:59 23:59 Intake Total 3084 / 3806 2000 750 / 750 Output Total 435 / 635 700 / 700 Balance 2649 / 3171 1301 / 1301 750 / 750 Laboratory Tests Past 24 Hrs 05/09/19 05/09/19 05:46 05:46 WBC 8.3 RBC 4.13 L Hgb 11.7 L Hct 35.6 L MCV 86.2 MCH 28.3 MCHC 32.9 RDW Std Deviation 43.6 RDW Coeff of Zita 13.9 Plt Count 169 MPV 11.3 Sodium 141 Potassium 3.1 L Chloride 106 Carbon Dioxide 28.0 Anion Gap 7 BUN 6 L Creatinine 0.79 Estim Creat Clear Calc 45.16 Est GFR (MDRD) Af Amer 93 Est GFR (MDRD) Non-Af 77 BUN/Creatinine Ratio 7.6 L Glucose 102 Calcium 8.2 L Medical Necessity - Tobacco Use Smoking Status: Never smoker Assessment/Plan All Active Problems (Last Reviewed 05/03/19 @ 09:40 by Yusra Balderas) Sigmoid diverticulitis (Acute) Will check CBC and K Hopefull discharge mid day
[2019-05-10 06:54] LABS: Absolute Lymphocyte Count 1.72 X10^3/uL (0.83-4.51); Basophil# 0.02 X10^3/uL; Basophil% 0.3 % (0-1); Eosinophils% 2.7 % (0-5); Hemoglobin 12.4 g/dL (12.0-15.0); Lymphocyte # 1.72 X10^3/ul (4.0); Mean Corp Hgb Conc 32.6 g/dL (32-36); Mean Corpuscular Hgb 28.2 pg (27.0-32.0); Mean Corpuscular Volume 86.6 fL (81-99); Mean Platelet Vol. 11.4 fl (6.2-12.0); Monocyte# 0.52 X10^3/uL; NRBC Flagged by Analyzer 0 % (0-5); Neutrophil # 4.99 X10^3/uL (2.7-7.7); Neutrophil % 66.7 % (47-70); Platelet Count 173 K/mm3 (150-450); RBC Distribution Width CV 14.4 % (11.6-14.6); RBC Distribution Width SD 45.2 fl (35.1-43.9); Red Blood Count 4.39 M/mm3 (4.2-5.4); White Blood Count 7.5 K/mm3 (4.4-11.0)
[2019-05-10 07:10] LABS: Potassium 3.5 mmol/L (3.5-5.1)
[2019-05-10 08:30] VITALS: PULSE 64
--- NOTE | 2019-05-10 09:15 | PCM.DC.SUM ---
Discharge Date and Diagnosis Date of Admission: 05/08/19 Date of Discharge: 05/10/19 - Primary Discharge Diagnosis Recurrent distal descending proximal sigmoid diverticulitis - Secondary Discharge Diagnosis Chronic Problems (Last Reviewed 05/03/19 @ 09:40 by Yusra Balderas) Hypertension (Chronic) Hospital Course and Treatment Operations: colectomy - Laparoscopic left colectomy with mobilization of the splenic flexure Summary of Care Provided: The patient is a 68 year old F who presents for an elective colectomy. Dr. Foster performed a Laparoscopic left colectomy with mobilization of the splenic flexure on 05/08/2019. Patient tolerated the procedure well. Patient had an uneventful hospitalization. Upon discharge, patient tolerated transitional diet well. She denies nausea, vomiting. She notes generalized abdominal cramping/discomfort. Positive flatus and loose BM's. - Physical Exam General: Alert, Oriented x3, Cooperative Abdomen: Bowel Sounds Present, Soft, Tender - generalized, - - Incisions c/d/i. no erythema or infection noted Vital Signs Temp Pulse Resp BP Pulse Ox 97.6 F L 64 16 154/82 H 94 05/10/19 05:33 05/10/19 08:30 05/10/19 05:33 05/10/19 05:33 05/10/19 05:33 Oxygen Flow Rate (L/min) 2 Oxygen Delivery Method Room Air Weight: 214 lb 1.102 oz Body Mass Index (BMI) 37.9 Intake and Output for Last 24 Hours 05/08/19 05/09/19 05/10/19 23:59 23:59 23:59 Intake Total 3084 / 3806 2000 / 2000 750 / 750 Output Total 435 / 635 700 / 700 Balance 2649 / 3171 1301 / 1301 750 / 750 Laboratory Tests Past 24 Hrs 05/10/19 05/10/19 06:45 06:45 WBC 7.5 RBC 4.39 Hgb 12.4 Hct 38.0 MCV 86.6 MCH 28.2 MCHC 32.6 RDW Std Deviation 45.2 H RDW Coeff of Zita 14.4 Plt Count 173 MPV 11.4 Immature Gran % (Auto) 0.300 Neut % (Auto) 66.7 Lymph % (Auto) 23.0 [place] % (Auto) 7.0 Eos % (Auto) 2.7 Baso % (Auto) 0.3 Absolute Neuts (auto) 5.0 Absolute Lymphs (auto) 1.72 Nucleated RBC % 0 Potassium 3.5 Discharge Diet: Light diet - advance as tolerated, - - Follow Transitional diet recommendations until follow-up in the office Discharge Activity: May Not Drive May shower in (days): 1 Call your doctor if your incision/area has: Continuous Slow Oozing, Sudden Increased Bleeding, Increased Pain/ Swelling, Increased Redness, Foul Smelling Discharge Call your doctor if you observe: Fever of 101 or Higher Suture Line Care: Avoid Pulling/Pushing, Avoid Pinching/Bending Additional Dressing/Incision Instructions:: Change or remove dressing in 2 days. Leave steri-strips in place for 1 week. Home Medications: Medications to take at Discharge Bisoprol/Hydrochlorothiazide [Ziac 5/6.25 MG (Beta Kaiden)] 1 tab PO DAILY 09/19/15 Hydrochlorothiazide 12.5 mg PO DAILY 04/10/19 krill oil 500 mg capsule 1 cap PO DAILY cap 04/18/19 turmeric 400 mg capsule 1 cap PO DAILY cap 04/18/19 Amoxicillin/Potassium Clav [Augmentin 875-125 Tablet] 1 ea PO BID 05/01/19 Hydrocodone Bitart/Apap 5-325 [[place] 5MG-325MG] 1 tab PO Q6H PRN PRN 3 Days #10 tab 05/10/19 Following Prescrptions Were Given to Patient: Hydrocodone Bitart/Apap 5-325 [[place] 5MG-325MG] 1 tab PO Q6H PRN PRN 3 Days #10 tab PRN Reason: Pain Transmission Status: Received by [id number] Primary Care Physician: Adile Foster III, MD [Primary Care Provider] - Please Follow Up With: Pacheco Foster MD - [phone] When: Call to make an appointment to be seen in about 10 days. Additional Instructions: May use Aleve or ibuprofen as needed for pain according to instructions on the bottle Disposition: Home Minutes spent on discharge:: 20 Patient Condition:: Stable Medical Necessity - Tobacco Use Smoking Status: Never smoker Meaningful Use Info Meaningful Use Diagnoses (Choose all that apply): None applicable Code Visit Inpatient E&M: 03973 Disch Hosp - No charge
[2019-05-10 12:23] VITALS: BP 139/71; PULSE 66; RESP 16; TEMP 36.7; O2SAT 98
--- NOTE | 2019-05-10 12:26 | NURSING ---
PRN NORCO GIVEN, NO SCHEDULED TYLENOL GIVEN.
== END 2019-05-10 12:37 | disposition home or self-care (01) | DRG 331 ==
PROVIDERS: Admitting Provider Surgery; Family Provider Family Medicine; PCP Family Medicine; Referring Provider Surgery; Visit Provider Surgery
PROC: 0DTN0ZZ Resection of Sigmoid Colon, Open Approach (ICD-10-PCS; CPT 44204; principal; 2019-05-08 06:50)
DX: K57.32 Diverticulitis of large intestine without perforation or abscess without bleeding (principal); K57.30 Diverticulosis of large intestine without perforation or abscess without bleeding; K64.9 Unspecified hemorrhoids; K21.9 Gastro-esophageal reflux disease without esophagitis; I10 Essential (primary) hypertension; Z79.899 Other long term (current) drug therapy
CPT/HCPCS: 36415; 80048; 82962; 84132; 85025; 85027; 88304; 88307; 93005; 99152; 99153; J7050; J7120; A4216; C1760; J3490

== ENCOUNTER 2020-12-12 14:31 | Outpatient (RCR) | payer MEDICARE, SELFPAY ==
[2019-05-19 07:28] VITALS: BMI 37.9
[2020-12-12] MEDS: COVID-19 VACC, MRNA(PFIZER)/PF 30 MCG/0.3 ML SYRINGE IM (08:20)
[2021-01-02] MEDS: COVID-19 VACC, MRNA(PFIZER)/PF 30 MCG/0.3 ML SYRINGE IM (07:59)
== END 2020-12-12 23:59 ==
LOC: IMMUN 14:31
PROVIDERS: PCP Family Medicine; Visit Provider Family Medicine
DX: Z23 Encounter for immunization (principal)
CPT/HCPCS: 0001A; 0002A

== ENCOUNTER → 2020-12-18 07:19 | Outpatient (CLI) | payer MEDICARE, OTHER, SELFPAY ==
[2019-05-19 07:28] VITALS: BMI 37.9
--- NOTE | 2020-12-18 07:22 | CT_ITS ---
STUDY: CT LEFT LOWER EXTREMITY REASON FOR EXAM: Varus deformity, surgical planning. TECHNIQUE: Transaxial CT imaging of the lower extremity was performed. Coronal and sagittal images were reformatted. Individualized dose optimization techniques were used for this CT. COMPARISON: None. FINDINGS: Knee: There is severe joint space narrowing of the of the articular joint space of the medial knee compartment (coronal reconstruction 40) with mild subchondral eburnation. There is a small subchondral cyst of the lateral femoral condyle with preservation of the articular joint space of the lateral knee compartment. Unremarkable patellofemoral articulation. Normal proximal tibiofibular articulation. There is moderate to large joint effusion. The quadriceps tendon is grossly normal. The patellar tendon is grossly normal. Normal Hoffa''s fat pad. The soft tissues are unremarkable. Hip: There is a herniation pit at the femoral head/neck junction (coronal reconstructions 54). Ankle: Normal tibiotalar, posterior subtalar, talonavicular and calcaneocuboid articulations. There is a small posterior calcaneal enthesophyte. CT/Extremity Lower without Contra IMPRESSION: Osteoarthritis of the medial femorotibial compartment. Knee joint effusion. Electronically Signed: Edwin Qiu MD at 12:59 EST Tel , Service support ,
== END ==
PROVIDERS: PCP Family Medicine; Referring Provider Specialist; Visit Provider Specialist
DX: M21.162 Varus deformity, not elsewhere classified, left knee (principal)
CPT/HCPCS: 73700

== ENCOUNTER 2021-01-08 06:57 | Observation (INO) | payer MEDICARE, OTHER, SELFPAY ==
[2019-05-19 07:28] VITALS: BMI 37.9
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
--- NOTE | 2021-01-01 08:33 | EKG12_ITS ---
Test Reason : PRE OP Blood Pressure : / mmHG Vent. Rate : 057 BPM Atrial Rate : 057 BPM P-R Int : 160 ms QRS Dur : 082 ms QT Int : 406 ms P-R-T Axes : 029 051 031 degrees QTc Int : 395 ms Sinus bradycardia Septal infarct (cited on or before 19-SEP-2015) Abnormal ECG Confirmed by JOSÉ MIGUEL LANG, ALF ([id number]), commissioning editor ANGIE OSULLIVAN ([id number]) on 01/02/2021 12:24:59 PM Referred By: Red Maddox Confirmed By:DON VALDEZ MD
[2021-01-01 08:39] LABS: Absolute Lymphocyte Count 2.59 X10^3/uL (0.83-4.51); Absolute Neutrophil Count 4.4 X10^3/uL (2.0-7.7); Basophil# 0.03 X10^3/uL; Basophil% 0.4 % (0-1); Eosinophil# 0.15 X10^3/uL; Eosinophils% 1.9 % (0-5); Hematocrit 42.3 % (37-47); Hemoglobin 13.8 g/dL (12.0-15.0); Lymphocyte # 2.59 X10^3/ul (4.0); Lymphocyte % 33.4 % (19-41); Mean Corp Hgb Conc 32.6 g/dL (32-36); Mean Corpuscular Hgb 28.3 pg (27.0-32.0); Mean Corpuscular Volume 86.9 fL (81-99); Mean Platelet Vol. 11.7 fl (6.2-12.0); Monocyte# 0.62 X10^3/uL; NRBC Flagged by Analyzer 0 % (0-5); Neutrophil # 4.35 X10^3/uL (2.7-7.7); Platelet Count 205 K/mm3 (150-450); RBC Distribution Width CV 14.3 % (11.6-14.6); RBC Distribution Width SD 45.1 fl (35.1-43.9); Red Blood Count 4.87 M/mm3 (4.2-5.4); White Blood Count 7.8 K/mm3 (4.4-11.0)
[2021-01-01 10:03] LABS: Anion Gap 4 (5-15); BUN 14 mg/dL (7-18); BUN/Creat Ratio 16.9 RATIO (10-20); Calcium,Total 9.6 mg/dL (8.5-10.1); Chloride 103 mmol/L (98-107); Creatinine, Serum 0.83 mg/dL (0.55-1.02); EST Glomerular Filtration Rate 73 mL/min (>60); Est Glom Filt Rate - Afr Amer 88 mL/min (>60); Glucose 105 mg/dL (74-106); Potassium 3.8 mmol/L (3.5-5.1); Sodium Level 138 mmol/L (136-145)
[2021-01-08] VITALS (16 sets, daily range): BP systolic 90–160; BP diastolic 58–75; PULSE 64–87; RESP 15–18; TEMP 36.1–37.2; O2SAT 94–100; BMI 42.5
[2021-01-08] MEDS: Scopolamine 1mg/72hr Patch 1 PATCH TD ×2 (07:00→07:09)
[2021-01-08] MEDS: Celecoxib 200 MG Capsule 400 MG PO (07:09)
[2021-01-08] MEDS: Gabapentin 600 MG Tablet PO (07:10)
[2021-01-08] MEDS: Acetaminophen 500 MG Tablet 1000 MG PO ×3 (07:10→21:04)
[2021-01-08] MEDS: Lactated Ringers 1,000 ML 999 ML IV ×2 (07:14→11:20)
[2021-01-08 07:15] LABS: Bedside Glucose 96 mg/dL (70-110)
[2021-01-08] MEDS: Lactated Ringers 1,000 ML 75 ML IV ×2 (07:54→14:21)
[2021-01-08] MEDS: Cefazolin 2 GM in 0.9% Normal Saline 100 ML IV (09:03)
[2021-01-08] MEDS: dexAMETHasone 10 MG/ML Vial IV (09:25)
--- NOTE | 2021-01-08 10:54 | PCM.OPRPT ---
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 Aura size 3 triathlon cruciate retaining distal femoral press-fit component 2. Mcrae [place] size 4 press-fit tritanium tibial baseplate 3. Aura X3 9 mm CS polyethylene 4. Mcrae [place] X3 29 mm asymmetric patella Brief history operative indications: 70-year-old f with history of left knee osteoarthritis with radiographic findings with loss of joint space, osteophyte formation and subchondral sclerosis. Failed conservative measures as mentioned in the H&P. Discussion of total knee arthroplasty as well as risk and benefits were discussed the patient including but not limited to blood loss, DVTs, PEs, neurovascular damage, general risk of anesthesia including loss of life, and stiffness or instability were discussed with patient. Patient demonstrated understanding and was able to sign informed consent. Procedure: On the date of procedure patient's left lower extremity was marked in the preoperative area. The patient was then taken back to the operating room where the patient was placed on the table in the supine position. All bony prominences were identified a well-padded. Anesthesia assumed control of the C-spine and airway and remained controlled throughout the remainder of the procedure. A tourniquet was placed on the left upper thigh and the leg was prepped in a sterile fashion. The surgeon then scrubbed at this time .Upon reentering the room left lower extremity was draped in a standard orthopedic fashion. A timeout was then called and everyone agreed upon the side, the site, the procedure to be performed, patient's identity and antibiotics given. Esmarch bandage was used to exsanguinate the extremity and the tourniquet was placed up to 250 mmHg with the knee in flexion. A midline skin incision was made and sharp dissection was taken down through skin subcutaneous tissue and fat. The standard medial parapatellar incision was made and the patella was subluxed laterally. An Appropriate deep MCL release was done and the fat pad was resected. Our attention was then directed to the patella. The patella was everted and a flat resection was made. The knee was then flexed up in 2 femoral pins were placed inside the incision and 2 tibial pins were placed outside the incision in the medial tibia bicortically. Once this was completed the 2 checkpoints in the femur and tibia were placed. Knee was then flexed up and the bony landmarks were registered. Once this was completed knee was taken through range of motion and manually stressed allowing us to a plan for an appropriate tibial cut. The robotic arm was brought into the field sterilely and checkpoint and saw were registered. Based on the patient's deformity the tibial cut was made 1 degree of varus. At this time the tensioner was then placed in the joint and ligament tension was checked at 90 degrees and full extension. Based on the patient's ligamentous tension appropriate adjustments were made to the operative plan and ligament releases were done. Once we were happy with our operative plan with balanced flexion and extension gaps our attention was directed to the femur. The robot was brought into the field sterilely and registered. Posterior condylar cuts, anterior chamfer cuts and anterior cuts were appropriately made for a size 3 femur. When these were completed the saws were switched out in the distal femoral and posterior chamfer cuts were made. Protecting the soft tissue throughout this time. A size 4 tibial base plate was selected. the knee was flexed to 90 degrees and the soft tissues and posterior osteophytes were removed from the joint. 40 cc of the periarticular injection was injected into the posterior medial corner of the joint. The appropriate trials were then placed on the femur and tibia. A trial polyethylene was trialed to ensure proper balancing and stability of the knee. The appropriate tibial internal rotation was then marked with a bovie. Our attention was then directed to the patella. The lug holes were drilled and the patella trial was placed. Patellar tracking was checked and deemed appropriate. Once we were happy lug holes were drilled for the femur and trial components were removed. the tibia was subluxed and pinned into place and the keel was punched and drilled appropriately. Final components were verified and opened, and cement was mixed in a vacuum. [employer] cement was used. The wound was copiously irrigated with normal saline. When the cement was ready the components were impacted into place starting with the tibia, femur and finally cementing the patella. The trial poly component was placed and the knee was placed in full extension. All excess cement was removed in the process. Once the cement had cured the tracking, alignment and balance were verified and a size 9 mm CS polyethylene component was placed. Once the final components were placed a 3-minute dilute Betadine lavage was performed followed by an Irrisept lavage was performed and the wound was copiously irrigated with normal saline solution and the periarticular injection was given. The wound was closed in a layer chan fashion using #1 vicryl interrupted sutures for the arthrotomy, 2-0 interrupted Vicryl suture for the subcuticular layer and mich for final skin closure. A sterile compressive dressing was then placed. The patient was then awakened from anesthesia, transferred to the [place] and transferred to the PACU for recovery. Post op plan DVT ppx: ASA 81mg BID, thigh high compression stockings Follow up: in office in 2 weeks for wound check PT: to start POD #0 at hospital, outpatient PT should be arranged. My physician advertising assistant was a vital part of this case. He was important in appropriate retraction during the case, and protection of soft tissues during bony cuts. His intimate knowledge of the case and my steps aided in safe and expedient completion of the procedure as well as appropriate position of the leg during the case. He was also vital in assisting with closure under my direct supervision. Due to the complexity of this case robotic arm was used to assist in the surgery to improve accuracy and clinical outcomes. - Complications No intraoperative complications - Admit VTE Documentation VTE Present on Admission: No VTE Mechan Device Prophylaxis: SCD's, Thigh High CAITY Hose VTE Pharm Prophylaxis ordered?: Yes
--- NOTE | 2021-01-08 12:11 | RAD_ITS ---
STUDY: X-RAY - LEFT KNEE REASON FOR EXAM: Postop left total knee arthroplasty. TECHNIQUE: 2 view(s) of the knee. COMPARISON: CT images 12/18/2020. FINDINGS: There is a left total knee arthroplasty without evidence of complication. There is postoperative gas in the soft tissues and overlying skin mich. RAD/Knee 1 or 2 Views IMPRESSION: Uncomplicated left total knee arthroplasty. Electronically Signed: Edwin Qiu MD at 14:17 EDT Tel , Service support ,
[2021-01-08] MEDS: 0.9% Saline Lock 10 ML Syringe IV (14:15)
[2021-01-08] MEDS: Morphine 2 MG/ML Syringe IV (14:15)
[2021-01-08] MEDS: Cholecalciferol (VIT D3) 25 MCG TABLET (1,000 UNITS) PO (14:20)
[2021-01-08] MEDS: hydroCHLOROthiazide 6.25mg TAB 6.25 MG PO (14:20)
[2021-01-08] MEDS: Bisoprolol Fumarate 5 MG Tablet PO (14:20)
[2021-01-08] MEDS: Magnesium Chloride 64 MG Delay Rel.Tablet 128 MG PO (14:20)
[2021-01-08] MEDS: Famotidine 20 MG Tablet PO (14:21)
[2021-01-08] MEDS: Senna/Docusate Sodium 1 Tablet 2 TABLET PO ×2 (14:21→21:04)
--- NOTE | 2021-01-08 15:26 | CON.PCM_ITS ---
Problem List (1) Status post left knee replacement Status: Acute (2) History of partial colectomy Status: Chronic Comment: left- 05/08/19 (3) Sleep apnea Status: Chronic (4) GERD (gastroesophageal reflux disease) Status: Chronic (5) Hypertension Status: Chronic Qualifiers: Hypertension type: essential hypertension Qualified Code(s): I10 - Essential (primary) hypertension Reason for Consult Date of Consultation: 01/08/21 Reason for Consultation: Postoperative medical management. History of Present Illness: The patient is a 70 year old F with past medical history as mentioned above who admitted to the hospital after she underwent elective left knee robotic assisted minimally invasive replacement for left knee osteoarthritis and I was asked to see the patient for postoperative medical management. Currently, patient mentioned that her left knee pain is tolerable. It is 3 out of 10 in severity, dull aching pain, not radiating and no aggravating or relieving factors. She just received IV morphine and Tylenol. Pain is manageable at this time. She has history of hypertension which has been under control with HCTZ/bisoprolol. She has history of obstructive sleep apnea and she has been using CPAP machine at home. She has history of GERD but she is not on PPI. Currently, she is afebrile, heart rate stable, blood pressure slight elevated, pulse ox is 97% on room air. Preoperative routine blood work that was done on January 01, 2021 reviewed and was unremarkable. Preop EKG also reviewed and showed sinus bradycardia, heart rate was 57, no acute changes. She is on IV cefazolin for perioperative prophylaxis. Past Medical History Past Medical History (Chronic Problems): Chronic Problems (Last Updated 01/08/21 @ 15:[address] Carlo Cabezas MD) History of partial colectomy (Chronic) left- 05/08/19 Sleep apnea (Chronic) GERD (gastroesophageal reflux disease) (Chronic) Hypertension (Chronic) Medical History: Medical History (Last Updated 01/08/21 @ 15:[address] Carlo Cabezas MD) Sleep apnea (Chronic) G47.30 GERD (gastroesophageal reflux disease) (Chronic) K21.9 Hypertension (Chronic) I10 Allergies codeine Adverse Reaction (Verified 01/08/21 07:30) Vomiting lisinopril Adverse Reaction (Verified 01/08/21 07:30) Other COUGH YELLOW JACKETS Allergy (Uncoded 01/08/21 07:30) Rash Home Medications: Ambulatory Orders Medication Instructions Recorded Bisoprol/Hydrochlorothiazide [Ziac 1 tab PO DAILY 09/19/15 5/6.25 MG (Beta Kaiden)] krill oil 500 mg capsule 1 cap PO DAILY cap 04/18/19 turmeric 400 mg capsule 2 cap PO DAILY cap 04/18/19 Cholecalciferol (Vitamin D3) 1 cap PO DAILY 12/25/20 [Vitamin D3] Magnesium Oxide [Magnesium] 500 mg PO DAILY 12/25/20 Tripleflex 1 cap PO QODAY 12/25/20 Surgical History: Surgical History (Last Updated 01/08/21 @ 15:[address] Carlo Cabezas MD) History of partial colectomy (Chronic) Z90.49 left- 05/08/19 History of colonoscopy (Inactive) Onset Date: ~2010 Z98.890 History of dilation and curettage (Inactive) Z98.890 History of elbow surgery (Inactive) Z98.890 History of tubal ligation (Inactive) Z98.51 Surgical History: - - Partial colectomy for diverticulitis. Psychiatric History: No pertinent psych hx TRACK OILER History: No pertinent TRACK OILER history Lives: Spouse/ Significant Other Smoking Status: Never smoker Alcohol: Occasional Drugs: None - *Family History Paternal Family History: Family History (Last Reviewed 07/04/19 @ 14:51 by Tika Smith) Father Diabetes Heart disease Mother Diabetes Brother Cancer Diverticulitis Brother Diverticulitis History Items: Cancer - Prostate, Heart Disease Sibling Family History: Family History (Last Reviewed 07/04/19 @ 14:51 by Tika Smith) Father Diabetes Heart disease Mother Diabetes Brother Cancer Diverticulitis Brother Diverticulitis History Items: Cancer - Esophageal Review of Systems Constitutional: Denies: Anorexia, Chills, Fever, Weakness Eyes: Denies: Blurred vision, Double vision, Drainage, Redness HEENT: Denies: Difficulty Hearing, Ear Pain, Eye Pain, Nasal Congestion, Sore Throat Cardiovascular: Denies: Chest Pain, Chest Pressure, Chest Tightness, Edema, Heaviness, Palpitations, Syncope Respiratory: Denies: Cough, Pleuritic Pain, Shortness of Breath, Sputum production, Wheezing Gastrointestinal: Denies: Abdominal Pain, Constipation, Diarrhea, Nausea, Vomiting Genitourinary: Denies: Dysuria, Frequency, Hematuria Musculoskeletal: Reports: Joint Pain. Denies: Arm Pain, Back Pain, Foot Pain Skin: Denies: Dryness, Rash Neurological: Denies: Balance problems, Double vision, Change in Speech, Slurred speech, Confusion, Headaches, Incoordination Psychiatric: Denies: Anxiety, Depression Endocrine: Denies: Change in Body Habitus, Polydipsia, Polyuria - Physical Exam Vitals/I&O's: Vital Signs Temp Pulse Resp BP Pulse Ox 98.0 F 82 16 160/71 H 97 01/08/21 13:35 01/08/21 13:35 01/08/21 13:35 01/08/21 13:35 01/08/21 13:35 Oxygen Flow Rate (L/min) 6 Oxygen Delivery Method Room Air Weight: 232 lb 12.93 oz Body Mass Index (BMI) 42.5 Intake and Output for Last 24 Hours 01/06/21 01/07/21 01/08/21 23:59 23:59 23:59 Intake Total 3436.5 / 3436.5 Balance 3436.5 / 3436.5 General: Alert, Oriented x3, Cooperative, No apparent distress HEENT: Atraumatic, PERRLA, EOMI, Normocephalic Oral: Moist Mucosa, No Gingival or Mucosal Lesions/ Ulcerations Neck: Supple, No JVD, Negative Carotid Bruits, Trachea Midline, Thyroid Normal Size and Texture Lungs: Clear to auscultation, Normal air movement, No rhonchi, No wheeze, No rales Cardiovascular: Regular rate, Regular Rhythm, Normal S1, Normal S2, PMI Normal Abdomen: Bowel Sounds Present, Soft, Non Tender, Non-Distended, No Hepato- splenomegaly, Obese Extremities: No clubbing, No cyanosis, No edema Skin: No rashes, No breakdown Lymphatic: No Cervical, Supraclavicular, or Inguinal Adenopathy Neurological: Cranial nerves II-XII grossly intact, Motor Exam 5/5 strength throughout Psych/Mental Status: Normal Affect, Appropriate, Alert and oriented to time, place, person, mood and affect Microbiology Past 72 Hours 01/07/21 10:10 Interface Orders SARS-CoV-2 Antigen (Rapid) - Final Laboratory Results 01/08/21 07:07: POC Glucose 96 Current Medications Acetaminophen (Acetaminophen 500 Mg Tablet) 1,000 mg PO Q8 [facility] Last Admin: 01/08/21 14:16 Dose: 1,000 mg Documented by: Aspirin (Aspirin 81 Mg Tab.Chew) 81 mg PO BIDCM [facility] Bisoprolol Fumarate (Bisoprolol Fumarate 5 Mg Tablet) 5 mg PO DAILY [facility] Last Admin: 01/08/21 14:20 Dose: 5 mg Documented by: Cholecalciferol (Cholecalciferol (Vit D3) 25 Mcg Tablet (1,000 Units)) 25 mcg PO DAILY [facility] Last Admin: 01/08/21 14:20 Dose: 25 mcg Documented by: Enteral Nutritional Formula (Ensure Surgery 237 Ml Liquid) 237 ml PO TIDCM [facility] Last Admin: 01/08/21 13:00 Dose: Not Given Documented by: Famotidine (Famotidine 20 Mg Tablet) 20 mg PO DAILY [facility] Last Admin: 01/08/21 14:21 Dose: 20 mg Documented by: Hydralazine HCl (Hydralazine 20 Mg/Ml Vial) 10 mg IV Q8H PRN PRN PRN Reason: for SBP>160 Hydrochlorothiazide (Hydrochlorothiazide 6.25mg Tab) 6.25 mg PO DAILY [facility] Last Admin: 01/08/21 14:20 Dose: 6.25 mg Documented by: Cefazolin Sodium () 1 gm in 50 mls @ 150 mls/hr IV Q8H [facility] Stop: 01/09/21 01:19 Lactated Ringer's () 1,000 mls @ 75 mls/hr IV .[id number] [facility] Stop: 01/08/21 21:14 Last Admin: 01/08/21 14:21 Dose: 75 mls/hr Documented by: Sodium Chloride () 250 mls @ 15 mls/hr IV .[id number] PRN PRN Reason: Saline Flush Sodium Chloride () 250 mls @ 15 mls/hr IV .[id number] PRN PRN Reason: Additional IVPB Infusion Insulin Human Lispro (Insulin Lispro 100 Unit/Ml Insuln.Pen) 1 - 6 unit SC Q4H PRN PRN; Protocol PRN Reason: BG>/= 180, SEE PROTOCOL Ketorolac Tromethamine (Ketorolac 15 Mg/Ml Vial) 15 mg IV Q6H PRN PRN PRN Reason: Pain Score 1-5 Magnesium Chloride (Magnesium Chloride 64 Mg Delay Rel.Tablet) 128 mg PO DAILY [facility] Last Admin: 01/08/21 14:20 Dose: 128 mg Documented by: Meloxicam (Meloxicam 7.5 Mg Tablet) 7.5 mg PO BID [facility] Morphine Sulfate (Morphine 2 Mg/Ml Syringe) 2 - 4 mg IV Q2H PRN PRN PRN Reason: Pain Score 6-10 Last Admin: 01/08/21 14:15 Dose: 2 mg Documented by: Ondansetron HCl (Ondansetron 4 Mg/2 Ml Vial) 4 mg IV Q8H PRN PRN PRN Reason: NAUSEA Oxycodone HCl (Oxycodone 5 Mg Tablet) 5 - 10 mg PO Q4H PRN PRN PRN Reason: Pain Score 4-10 Promethazine HCl (Promethazine 25 Mg/Ml Syringe) 12.5 mg IM Q6H PRN PRN; Protocol PRN Reason: NAUSEA/VOMITING Senna/Docusate Sodium (Senna/Docusate Sodium 1 Tablet) 2 tablet PO BID [facility] Last Admin: 01/08/21 14:21 Dose: 2 tablet Documented by: Sodium Chloride (0.9% Saline Lock 10 Ml Syringe) 10 - 40 ml IV UD PRN PRN Reason: SALINE FLUSH Last Admin: 01/08/21 14:15 Dose: 10 ml Documented by: Assessment/Plan All Active Problems (Last Updated 01/08/21 @ 15:[address] Carlo Cabezas MD) Status post left knee replacement (Acute) This is a 70 years old female patient underwent elective left total knee replacement about seeing this patient in consultation for postoperative medical management. #1 status post robotic assisted minimally invasive left knee replacement: This was done for left knee osteoarthritis, postoperative day 1. She is on IV cefazolin for perioperative prophylaxis. She is on IV morphine and OxyIR as needed for pain. Glucose slightly better, other vital signs are stable. Preop routine blood work and EKG reviewed as above. Orthopedic surgery on the case. CBC and BMP ordered for tomorrow morning. #2 hypertension: Blood pressure slightly elevated, continue bisoprolol and HCTZ, start IV adenosine as needed. #3 obstructive sleep apnea: Continue CPAP at night with same home settings. #4 GERD: She is not on PPI. She is not taking medication for it at home too. #5 history of diverticulitis: Status post partial colectomy back in 2019, stable. No acute issues. #6 DVT prophylaxis: SCDs, p.o. aspirin twice daily. This note was generated with [employer] dictation software. It may contain incorrect words, spelling, and punctuation that were not noted in checking the note before signing. Inpatient E&M: 90579 Init Hosp L2
[2021-01-08] MEDS: Ensure Surgery 237 ML LIQUID PO (15:51)
[2021-01-08] MEDS: Aspirin 81 MG TAB.CHEW PO (15:51)
[2021-01-08] MEDS: oxyCODONE 5 MG Tablet PO ×2 (15:51→21:04)
[2021-01-08] MEDS: Cefazolin 1 GM/50 ML BAG IV (15:52)
[2021-01-09] MEDS: Cefazolin 1 GM/50 ML BAG IV (01:10)
[2021-01-09] MEDS: oxyCODONE 5 MG Tablet PO ×4 (01:10→14:10)
[2021-01-09 02:35] VITALS: BP 128/59; PULSE 64; RESP 18; TEMP 36.3; O2SAT 96
[2021-01-09] MEDS: Acetaminophen 500 MG Tablet 1000 MG PO ×2 (06:01→14:04)
[2021-01-09 06:13] LABS: Hematocrit 38.4 % (37-47); Mean Corp Hgb Conc 31.3 g/dL (32-36); Mean Corpuscular Hgb 27.7 pg (27.0-32.0); Mean Corpuscular Volume 88.7 fL (81-99); Mean Platelet Vol. 12.5 fl (6.2-12.0); Platelet Count 193 K/mm3 (150-450); RBC Distribution Width SD 45.6 fl (35.1-43.9); Red Blood Count 4.33 M/mm3 (4.2-5.4); White Blood Count 16.9 K/mm3 (4.4-11.0)
[2021-01-09 06:43] LABS: Anion Gap 7 (5-15); BUN 16 mg/dL (7-18); BUN/Creat Ratio 21.1 RATIO (10-20); Calcium,Total 8.8 mg/dL (8.5-10.1); Chloride 108 mmol/L (98-107); Creatinine, Serum 0.76 mg/dL (0.55-1.02); EST Glomerular Filtration Rate 80 mL/min (>60); Est Glom Filt Rate - Afr Amer 97 mL/min (>60); Estimated Creatinine Clearance 41.99 ml/min; Glucose 133 mg/dL (74-106); Potassium 4.3 mmol/L (3.5-5.1); Sodium Level 139 mmol/L (136-145)
[2021-01-09 07:52] VITALS: BP 110/60; PULSE 60; RESP 16; TEMP 37; O2SAT 98
[2021-01-09] MEDS: Senna/Docusate Sodium 1 Tablet 2 TABLET PO (08:03)
[2021-01-09] MEDS: Cholecalciferol (VIT D3) 25 MCG TABLET (1,000 UNITS) PO (08:03)
[2021-01-09] MEDS: Aspirin 81 MG TAB.CHEW PO (08:03)
[2021-01-09] MEDS: Magnesium Chloride 64 MG Delay Rel.Tablet 128 MG PO (08:03)
[2021-01-09] MEDS: Famotidine 20 MG Tablet PO (08:03)
[2021-01-09] MEDS: Ensure Surgery 237 ML LIQUID PO ×2 (08:15→11:15)
--- NOTE | 2021-01-09 08:35 | PN.ORTHO_ITS ---
Patient Problems: Active and Suspected Problems (Last Updated 01/08/21 @ 15:[address] Carlo Cabezas MD) Status post left knee replacement (Acute) Subjective: The patient was sitting in bedside chair upon examination. Patient denies any chest pain, shortness of breath, dizziness, lightheadedness, nausea or vomiting, or calf pain. Pain is controlled on medications. No adverse overnight events. Patient states overall she is doing well. Objective: Vital signs stable and afebrile. Patient is able to plantarflex and dorsiflex actively. Sensation is intact to light touch to saphenous, sural, superficial and deep peroneal, and tibial distribution. Dressing has minimal drainage in 2 spots over the main dressing. There is minimal drainage over the pin sites Negative Homans bilaterally, negative signs and symptoms of DVT. - Physical Exam Vitals/I&O's: Vital Signs Temp Pulse Resp BP Pulse Ox 98.6 F 60 16 110/60 98 01/09/21 07:52 01/09/21 07:52 01/09/21 07:52 01/09/21 07:52 01/09/21 07:52 Oxygen Flow Rate (L/min) 6 Oxygen Delivery Method Room Air Weight: 105.6 kg Body Mass Index (BMI) 42.5 Intake and Output for Last 24 Hours 01/07/21 01/08/21 01/09/21 23:59 23:59 23:59 Intake Total 4486.5 / 4486.5 988.75 / 988.75 Balance 4486.5 / 4486.5 988.75 / 988.75 General: Alert, Oriented x3, Cooperative, No apparent distress Microbiology Past 72 Hours 01/07/21 10:10 Interface Orders SARS-CoV-2 Antigen (Rapid) - Final Laboratory Results 01/09/21 05:05: WBC 16.9 H, RBC 4.33, Hgb 12.0, Hct 38.4, MCV 88.7, MCH 27.7, MCHC 31.3 L, RDW Std Deviation 45.6 H, RDW Coeff of Zita 14.0, Plt Count 193, MPV 12.5 H 01/09/21 05:05: Sodium 139, Potassium 4.3, Chloride 108 H, Carbon Dioxide 24.0, Anion Gap 7, BUN 16, Creatinine 0.76, Estim Creat Clear Calc 41.99, Est GFR (MDRD) Af Amer 97, Est GFR (MDRD) Non-Af 80, BUN/Creatinine Ratio 21.1 H, Glucose 133 H, Calcium 8.8 Current Medications Acetaminophen (Acetaminophen 500 Mg Tablet) 1,000 mg PO Q8 [facility] Last Admin: 01/09/21 06:01 Dose: 1,000 mg Documented by: Aspirin (Aspirin 81 Mg Tab.Chew) 81 mg PO BIDCM [facility] Last Admin: 01/09/21 08:03 Dose: 81 mg Documented by: Bisoprolol Fumarate (Bisoprolol Fumarate 5 Mg Tablet) 5 mg PO DAILY [facility] Last Admin: 01/08/21 14:20 Dose: 5 mg Documented by: Cholecalciferol (Cholecalciferol (Vit D3) 25 Mcg Tablet (1,000 Units)) 25 mcg PO DAILY [facility] Last Admin: 01/09/21 08:03 Dose: 25 mcg Documented by: Enteral Nutritional Formula (Ensure Surgery 237 Ml Liquid) 237 ml PO TIDCM [facility] Last Admin: 01/09/21 08:15 Dose: 237 ml Documented by: Famotidine (Famotidine 20 Mg Tablet) 20 mg PO DAILY [facility] Last Admin: 01/09/21 08:03 Dose: 20 mg Documented by: Hydralazine HCl (Hydralazine 20 Mg/Ml Vial) 10 mg IV Q8H PRN PRN PRN Reason: for SBP>160 Hydrochlorothiazide (Hydrochlorothiazide 6.25mg Tab) 6.25 mg PO DAILY [facility] Last Admin: 01/08/21 14:20 Dose: 6.25 mg Documented by: Sodium Chloride () 250 mls @ 15 mls/hr IV .[id number] PRN PRN Reason: Saline Flush Sodium Chloride () 250 mls @ 15 mls/hr IV .[id number] PRN PRN Reason: Additional IVPB Infusion Insulin Human Lispro (Insulin Lispro 100 Unit/Ml Insuln.Pen) 1 - 6 unit SC Q4H PRN PRN; Protocol PRN Reason: BG>/= 180, SEE PROTOCOL Ketorolac Tromethamine (Ketorolac 15 Mg/Ml Vial) 15 mg IV Q6H PRN PRN PRN Reason: Pain Score 1-5 Magnesium Chloride (Magnesium Chloride 64 Mg Delay Rel.Tablet) 128 mg PO DAILY [facility] Last Admin: 01/09/21 08:03 Dose: 128 mg Documented by: Meloxicam (Meloxicam 7.5 Mg Tablet) 7.5 mg PO BID [facility] Morphine Sulfate (Morphine 2 Mg/Ml Syringe) 2 - 4 mg IV Q2H PRN PRN PRN Reason: Pain Score 6-10 Last Admin: 01/08/21 14:15 Dose: 2 mg Documented by: Ondansetron HCl (Ondansetron 4 Mg/2 Ml Vial) 4 mg IV Q8H PRN PRN PRN Reason: NAUSEA Oxycodone HCl (Oxycodone 5 Mg Tablet) 5 - 10 mg PO Q4H PRN PRN PRN Reason: Pain Score 4-10 Last Admin: 01/09/21 06:01 Dose: 5 mg Documented by: Promethazine HCl (Promethazine 25 Mg/Ml Syringe) 12.5 mg IM Q6H PRN PRN; Protocol PRN Reason: NAUSEA/VOMITING Senna/Docusate Sodium (Senna/Docusate Sodium 1 Tablet) 2 tablet PO BID [facility] Last Admin: 01/09/21 08:03 Dose: 2 tablet Documented by: Sodium Chloride (0.9% Saline Lock 10 Ml Syringe) 10 - 40 ml IV UD PRN PRN Reason: SALINE FLUSH Last Admin: 01/08/21 14:15 Dose: 10 ml Documented by: Medical Necessity - Tobacco Use Smoking Status: Never smoker Assessment/Plan All Active Problems (Last Updated 01/08/21 @ 15:[address] Carlo Cabezas MD) Status post left knee replacement (Acute) 1. S/P left total knee arthroplasty POD #1 2. Continue Pain Medications: Tylenol, meloxicam, oxycodone 3. DVT Prophylaxis: Take 81 mg aspirin twice daily for 4 weeks postoperatively for DVT prophylaxis 4. PT/OT: Weightbearing as tolerated 5. H & H: 12.0/38.4, asymptomatic. 6. Reactive leukocytosis: Currently 16.9, afebrile. Patient did receive Decadron intraoperatively. 7. Encouraged Incentive Spirometry 8. Disposition: Plan will be for discharge home today as long as patient tolerates therapy and pain is controlled. Prescriptions will be E scribed to [facility] pharmacy. She has outpatient physical therapy established. Patient will follow-up per postop instructions. I have reviewed the [place] Automated Rx Reporting System (OARRS) report for this patient for refill pattern and other prescriber involvement as part of the appropriate surveillance for the provision of acute and chronic controlled medications. The report was requested and reviewed on the date of this entry and was considered in the prescribing process.
--- NOTE | 2021-01-09 08:46 | DCINST_ITS ---
Discharge Diet: No Restrictions Discharge Activity: May Not Drive May shower in (days): 1 - Dressing must be intact the skin. Turn dressing away from water Ice area for (Minutes): 20 - 3 1 to 2 hours while awake Weight Bearing Status: Weight bearing as tolerated Elevate: Operative Extremity Additional Activity Instructions:: Wear elastic stockings for 2 weeks after your surgery. Call your doctor if your incision/area has: Continuous Slow Oozing, Sudden Increased Bleeding, Increased Pain/ Swelling, Increased Redness, Foul Smelling Discharge Call your doctor if you observe: Fever of 101 or Higher, Coldness, Increased Pain, Numbness or Tingling, Change in Color, Calf discomfort, Uncontrolled pain Remove Dressing in (days):: 4 - Okay to remove dressing on January 13, 2021 Additional Instructions: Follow [facility] Post-op Instructions. Once postoperative dressing has been removed only use gentle soap and water over the incision. Do not use any ointments, Neosporin, salves, alcohol pads over the incision for 6 weeks postoperatively. Do not submerge underwater for 6 weeks postoperatively. Allergies/Adverse Reactions: Allergies codeine Adverse Reaction (Verified 01/08/21 07:30) Vomiting lisinopril Adverse Reaction (Verified 01/08/21 07:30) Other COUGH YELLOW JACKETS Allergy (Uncoded 01/08/21 07:30) Rash Medications to take at Discharge Bisoprol/Hydrochlorothiazide [Ziac 5/6.25 MG (Beta Kaiden)] 1 tab PO DAILY 09/19/15 Cholecalciferol (Vitamin D3) [Vitamin D3] 1 cap PO DAILY 12/25/20 Magnesium Oxide [Magnesium] 500 mg PO DAILY 12/25/20 Acetaminophen [Tylenol] 1,000 mg PO Q8 #100 tablet 01/09/21 Aspirin [Aspirin, Baby] 81 mg PO BIDCM #60 tablet 01/09/21 Famotidine [Pepcid] 20 mg PO DAILY #30 tablet 01/09/21 Meloxicam [Mobic] 7.5 mg PO BID #60 tablet 01/09/21 Oxycodone [Oxyir] 5 - 10 mg PO Q4H PRN PRN 5 Days #60 tablet 01/09/21 Senna/Docusate Sodium [Senokot-S] 2 tablet PO BID #10 tablet 01/09/21 The following prescriptions were given: Aspirin [Aspirin, Baby] 81 mg PO BIDCM #60 tablet Transmission Status: Pending to [facility] Meloxicam [Mobic] 7.5 mg PO BID #60 tablet Transmission Status: Pending to [facility] Oxycodone [Oxyir] 5 - 10 mg PO Q4H PRN PRN 5 Days #60 tablet PRN Reason: Pain Score 4-10 Transmission Status: Sent to [facility] Famotidine [Pepcid] 20 mg PO DAILY #30 tablet Transmission Status: Pending to [facility] Senna/Docusate Sodium [Senokot-S] 2 tablet PO BID #10 tablet Transmission Status: Pending to [facility] Acetaminophen [Tylenol] 1,000 mg PO Q8 #100 tablet Transmission Status: Pending to [facility] Primary Care Physician: Adiel Foster III, MD [Primary Care Provider] - Test Results: Test results from this visit will be discussed in further detail at your follow- up appointment, if applicable. Please Follow Up With: [facility] When: 01/13/21 @ 8:30 am Please Follow Up With: Cristiano Deras PA-C When: 01/22/21 @ 9:30 am
--- NOTE | 2021-01-09 09:10 | CASEMGMT ---
VAISHALI SPEARS Assessment: Face to Face with pt for initial transition planning/care coordination assessment. VAISHALI SPEARS introduced self and role at [facility], pt voices understanding and consents to assessment. Pt is A/O x4 and answers all questions appropriately at this time. Pt sitting up in chair and just finished therapy. Care providers, pharmacy, and demographics verified/updated. Admitting Dx: L TK Robotic PCP: Vern Specialists: zay Carranza Preferred Pharmacy: [facility], but pt will use [facility] today for her meds. Insurance: [facility], A[employer] Prescription Benefit: yes LW/HPOA: Pt reports she has a LW and DPOA. She is aware they are not on file at [facility]. Her is DPOA. LNOK: , Donnie Malcolm Living Arrangements: Pt lives with in a single story house with 3 steps to enter with hand rail. Pt reports being I in ADL's and no concerns at home. Transportation: Pt drives self. is also available for transportation. Denies concerns with transportation. DME/HHC/SNF: Pt has a cane, walker, CPAP, grab bars in the walk in shower with a built in shower seat. Pt denies previous HHC or SNF stays. Pt states no concerns with going home at time of dc. Pt is set up for outpt therapy at [facility] on Wednesday. Pt states no further concerns/needs. Advised pt to ask CM if any further question/concerns/needs arise, voices understanding. Pt Goal: Home with outpt therapy Plan: Home with outpt therapy and family support, follow up plans in place. VAISHALI SPEARS discussed BROWN form with patient. VAISHALI SPEARS explained BROWN form, patient voiced understanding. Pt signed form and filed in chart. Pt provided with a copy of signed BROWN form. Patient had no further questions or concerns at this time.
--- NOTE | 2021-01-09 13:06 | CHAPLAIN ---
Type of Pastoral Visit _x__ Initial Visit ___ Follow-up Visit ___ On-call Visit ___ General Patient Visit ___ Spiritual Assessment ___ Family Conference ___ Bereavement ___ Rapid Response ___ Code Blue ___ Other (describe below) Pastoral Care Referral From _x__ Patient ___ Family ___ Nurse ___ Physician ___ [facility] ___ Wort Extractor ___ Other (describe below) Sacrament/Intervention _x__ Active listening ___ Anointing ___ Gnosticism ___ Bereavement ___ Communion ___ Kareen exploration ___ ___ Life review _x__ Prayer ___ Reconciliation ___ Sacrament of Sick _x__ Supportive presence ___ Wedding ___ Other (describe below) Pastoral Comments
[2021-01-09 14:00] VITALS: BP 131/63; PULSE 62; RESP 14; TEMP 36.9; O2SAT 98
[2021-01-09] MEDS: hydroCHLOROthiazide 6.25mg TAB 6.25 MG PO (14:07)
== END 2021-01-09 14:45 | disposition home or self-care (01) ==
LOC: SDC 08:22 → MS3 08:22
PROVIDERS: Anesthesiology; Admitting Provider Specialist; PCP Family Medicine; Referring Provider Specialist
PROC: 0SRD0JZ Replacement of Left Knee Joint with Synthetic Substitute, Open Approach (ICD-10-PCS; CPT 27447; principal; 2021-01-08 08:30)
DX: M17.12 Unilateral primary osteoarthritis, left knee (principal); Z20.828 Contact with and (suspected) exposure to other viral communicable diseases; I10 Essential (primary) hypertension; G47.33 Obstructive sleep apnea (adult) (pediatric); E78.5 Hyperlipidemia, unspecified; N39.3 Stress incontinence (female) (male); Z79.899 Other long term (current) drug therapy; K21.9 Gastro-esophageal reflux disease without esophagitis
CPT/HCPCS: 01402; 27447; 64447; S2900; 36415; 73560; 80048; 82962; 83735; 85025; 85027; 87081; 87426; 93005; 96361; 96365; 96366; 96375; 97110; 97116; 97162; 97166; 97530; 97535; 99218; 99251; C1776; C9803; J7120; A4216; G0378; G0379; G0463

== ENCOUNTER 2022-03-07 06:11 | Emergency (ER) | payer MEDICARE, OTHER, SELFPAY ==
[2022-03-07 06:12] VITALS: BP 114/79; PULSE 68; RESP 18; TEMP 36.6; O2SAT 97; BMI 40.6
--- NOTE | 2022-03-07 06:17 | EX.ED.VIS.UR ---
HPI HPI - URI History of Present Illness Chief Complaint: Sore Throat Informant: patient Onset/Context/Timing Onset: Days (3) Context: Gradual Onset Timing: Continuous Quality: cough Current Severity: Mild Maximum Severity: Mild Associated Symptoms Associated Symptoms: Positive for Nasal Congestion, Nonproductive cough and - (Sore throat) Narrative Narrative: Patient with URI symptoms that started 3 days ago, lives with her who has similar symptoms and tested positive for COVID. She has not been tested yet. She states she feels relatively well but is concerned about risk factors she has for worsening although she has been vaccinated and boosted, and presents for evaluation based on that. ROS ROS ED Constitutional Constitutional ED: Denies chills or fever(s) ENT ENT ED: Reports nasal congestion, rhinorrhea and sore throat Cardiovascular Cardiovascular: Denies chest pain or palpitations Respiratory/Chest Respiratory/Chest: Reports cough; Denies dyspnea Gastrointestinal Gastrointestinal: Denies abdominal pain, diarrhea, nausea or vomiting Genitourinary Genitourinary ED: Denies dysuria or hematuria Musculoskeletal Musculoskeletal: Denies myalgias or neck pain Integumentary Denies abscess or rash Neurologic Neurologic: Denies headache(s), paresthesias or weakness Psychiatric Psychiatric: Denies depression or suicidal thoughts Endocrine Endocrinology: Denies polydipsia or polyuria [facility] Medical History GERD (gastroesophageal reflux disease) Hypertension Sleep apnea Home Medications bisoprolol-hydrochlorothiazide 1 tab PO DAILY 09/19/15 [History Last Taken 05/08/19] Cholecalciferol (Vitamin D3) [Vitamin D3] 1 cap PO DAILY 12/25/20 [History Last Taken Unknown] magnesium oxide 500 mg PO DAILY 12/25/20 [History Last Taken Unknown] acetaminophen 1,000 mg PO Q8 #100 tablet 01/09/21 [Rx Last Taken Unknown] aspirin 81 mg PO BIDCM #60 tablet 01/09/21 [Rx Last Taken Unknown] famotidine 20 mg PO DAILY #30 tablet 01/09/21 [Rx Last Taken Unknown] meloxicam 7.5 mg PO BID #60 tablet 01/09/21 [Rx Last Taken Unknown] sennosides-docusate sodium 2 tablet PO BID #10 tablet 01/09/21 [Rx Last Taken Unknown] nirmatrelvir-ritonavir [Paxlovid (EUA)] See Rx Instructions .ROUTE .COMPLEX #30 tab 03/07/22 [Rx Last Taken Unknown] Allergy/AdvReac Type Severity Reaction Status Date / Time codeine AdvReac Vomiting Verified 03/07/22 06:17 lisinopril AdvReac Other Verified 03/07/22 06:17 YELLOW JACKETS Allergy Rash Uncoded 03/07/22 06:17 Family History Father Diabetes Heart disease Mother Diabetes Brother Cancer esophageal and brain Diverticulitis Brother Diverticulitis Surgical History History of colonoscopy (~2010) History of dilation and curettage History of elbow surgery History of partial colectomy History of tubal ligation Social History Smoking Status: Never smoker EXAM Physical Exam Const Vital Signs: 03/07/22 06:12 03/07/22 06:16 Temperature 97.8 F Temperature Source Oral Pulse Rate 68 Respiratory Rate 18 Respiratory Effort Normal Non-Labored Respiratory Pattern Normal Blood Pressure 114/79 Blood Pressure Mean 90 Pulse Ox 97 Oxygen Delivery Method Room Air Positive well nourished and well developed Constitutional Narrative: Well-appearing General Appearance ED: well developed and NAD HEENT Reports moist mucous membranes normocephalic and atraumatic Throat: Negative for posterior oropharynx abnormal Eyes PERRL and EOMs intact bilaterally Neck no lymphadenopathy, supple and no meningeal signs Resp normal respiratory effort and clear to auscultation bilaterally Effort and Inspection: able to speak in complete sentences Cardio no murmurs Rate: regular rate; Negative for tachycardic Rhythm: regular rhythm Neuro oriented x3, CN's II-XII intact bilaterally and no sensory deficits noted Sensorium / Orientation: alert Motor Exam: strength 5/5 throughout Skin Lesions: no lesions Rashes: no rashes MDM MDM MDM Narrative Medical decision making narrative: Rapid COVID is negative. Highly suspicious for this being a false-negative test given the context, so will perform PCR in order to confirm. Her vital signs are normal including her pulse oximetry 97-98% on room air, she has relatively mild disease at this time and does not require any other studies emergently today. Since she is within the first 5 days of symptom onset, has hypertension and is over the age of 65, and is on no medications that are a contraindication, she is a candidate for PaxLOVID but according to the EUA, she must have a documented positive test. I am sending a PCR to be run stat, and I will give her the prescription for the medication, and if and when she returns positive she should then be able to fill the prescription, so as not to create delays that could result in her no longer being a candidate for the medication. Given appropriate discharge instructions and reasons to return. Discharge Plan Triage Chief Complaint: Sore Throat ED Provider: Hai Lundberg Dx/Rx/DC Orders Clinical Impression: COVID-19 Instructions: Coronavirus Disease 2019 (COVID-19): Caring for Yourself or Others Prescriptions: New Paxlovid (EUA) 150 mg x 2- 100 mg tablet See Rx Instructions .ROUTE .COMPLEX Qty: 30 RF: 0 No Action bisoprolol-hydrochlorothiazide 1 TAB tablet 1 tab PO DAILY RF: 0 magnesium oxide 500 MG capsule 500 mg PO DAILY RF: 0 Cholecalciferol (Vitamin D3) [Vitamin D3] 5,000 UNIT capsule 1 cap PO DAILY RF: 0 sennosides-docusate sodium 1 TABLET tablet 2 tablet PO BID Qty: 10 RF: 0 acetaminophen 500 MG tablet 1,000 mg PO Q8 Qty: 100 RF: 0 meloxicam 7.5 MG tablet 7.5 mg PO BID Qty: 60 RF: 0 famotidine 20 MG tablet 20 mg PO DAILY Qty: 30 RF: 0 aspirin 81 MG tablet,chewable 81 mg PO BIDCM Qty: 60 RF: 0 Primary Care Provider: Isreal Elais Referrals: Isreal Elias MD [Primary Care Provider] - Activity Restrictions/Additional Instructions: Try to get a home portable pulse oximeter and closely watch your oxygen levels periodically. If you stay below 90% for more than a minute or so, and/or you are feeling like your breathing is getting worse, return to the emergency department for further evaluation. Disposition Disposition: Home, Self Care
== END 2022-03-07 07:33 | disposition home or self-care (01) ==
PROVIDERS: Emergency Provider Emergency Medicine; PCP Family Medicine; Visit Provider Emergency Medicine
DX: U07.1 COVID-19 (principal); G47.30 Sleep apnea, unspecified
CPT/HCPCS: 87635; 87811; 99282; U0003; U0005

== ENCOUNTER → 2022-12-18 | Outpatient (CLI) | payer MEDICARE, OTHER, SELFPAY ==
--- NOTE | 2022-12-18 10:53 | STRESSREP ---
Stress Test Report Date: 12/18/2022 Procedure: Exercise tolerance test Indications: Dyspnea Consent: Per the patient Procedure: The patient exercised on a Fabián protocol for 4 minutes and 37 seconds achieving a peak heart rate of 130 bpm (87% predicted maximal heart rate) with a peak blood pressure 190/80 mmHg and a peak MET capacity of approximately 7.0 MET's. The baseline ECG demonstrated normal sinus rhythm. The peak exercise ECG demonstrated sinus tachycardia with no ischemic changes. There were no cardiac dysrhythmias pretest, during exercise, or recovery. The functional capacity was considered suboptimal. The patient had no complaints of chest discomfort during exercise or recovery. The examination was discontinued secondary to target heart rate being achieved and dyspnea. Impression: 1. Technically adequate (percent predicted maximal heart rate greater than 85%) exercise tolerance test 2. Peak exercise ECG with no ischemic changes 3. There were no cardiac dysrhythmias during exercise or recovery This note was generated with [employer] Online[employer] software. It may contain incorrect words, spelling, and punctuation that were not noted in checking the note before signing.
== END | disposition home or self-care (01) ==
LOC: CVS 09:48
PROVIDERS: PCP Family Medicine; Visit Provider Family Medicine
DX: R06.02 Shortness of breath (principal)
CPT/HCPCS: 93017

== ENCOUNTER 2023-05-26 06:05 | Emergency (ER) | payer MEDICARE, OTHER, SELFPAY ==
[2023-05-26 06:06] VITALS: BP 178/70; PULSE 73; RESP 16; TEMP 36.4; O2SAT 99; BMI 44.4
--- NOTE | 2023-05-26 06:53 | CT_ITS ---
STUDY: CT ABDOMEN AND PELVIS WITH CONTRAST REASON FOR EXAM: Female, 72 years old. Abdominal pain and constipation. Prior partial sigmoid colectomy. RADIATION DOSAGE (If Supplied By Facility): CTDIvol = ( 16.95 ) mGy, DLP = ( 1276.00 ) mGycm TECHNIQUE: Transaxial images were obtained from the dome of the diaphragm to the symphysis pubis without oral contrast. IV 100mL Isovue-300 was administered. Sagittal and coronal images were reconstructed. Individualized dose optimization techniques were used for this CT. COMPARISON: Comparison is made with prior study dated March 27, 2019. FINDINGS: The visualized lung bases are unremarkable. Coronary artery calcification. There is decreased attenuation of the liver consistent with steatosis. Normal gallbladder and extrahepatic biliary system. Normal spleen. Normal pancreas. Normal bilateral adrenal glands. Normal right kidney. Normal left kidney. There is a small hiatal hernia. Normal small intestine. There is diverticulosis, with thickening of the colon wall, and pericolonic inflammation changes consistent with acute diverticulitis. Surgical anastomosis seen in the midportion of the sigmoid colon. The appendix is visualized and appears normal. There is scattered atherosclerotic calcification of the abdominal aorta, without a demonstrated aneurysm. Normal inferior vena cava. Normal retroperitoneum. Normal urinary bladder. Bilateral tubal ligation clips are seen. Normal abdominal wall. There are mild degenerative changes of the visualized lumbar spine. Stable minimal anterolisthesis of L4 on L5 most likely secondary to facet joint osteoarthritis. CT/Abdomen/Pelvis W IV Cont ONLY IMPRESSION: Findings in keeping with a noncomplicated sigmoid diverticulitis. Diffuse fatty infiltration of the liver. Electronically Signed: zO Phillips MD at 8:20 EDT ,
[2023-05-26 07:04] LABS: Absolute Lymphocyte Count 2.58 X10^3/uL (0.83-4.51); Absolute Neutrophil Count 7.4 X10^3/uL (2.0-7.7); Basophil# 0.05 X10^3/uL; Basophil% 0.5 % (0-1); Eosinophil# 0.18 X10^3/uL; Eosinophils% 1.6 % (0-5); Hemoglobin 14.3 g/dL (12.0-15.0); Lymphocyte # 2.58 X10^3/ul (0.83-4.51); Lymphocyte % 23.5 % (19-41); Mean Corp Hgb Conc 31.8 g/dL (32-36); Mean Corpuscular Hgb 27.7 pg (27.0-32.0); Mean Platelet Vol. 12.1 fl (6.2-12.0); Monocyte# 0.73 X10^3/uL; Monocyte% 6.7 % (0-10); NRBC Flagged by Analyzer 0 % (0-5); Neutrophil # 7.38 X10^3/uL (2.7-7.7); Neutrophil % 67.3 % (47-70); Platelet Count 251 K/mm3 (150-450); RBC Distribution Width CV 13.5 % (11.6-14.6); RBC Distribution Width SD 43.4 fl (35.1-43.9); Red Blood Count 5.17 M/mm3 (4.2-5.4)
[2023-05-26] MEDS: 0.9% Normal Saline 1,000 ML 999 ML IV (07:22)
[2023-05-26 07:34] LABS: AST(SGOT) 35 U/L (15-37); Alanine Aminotransfer ALT/SGPT 71 U/L (13-56); Albumin, Serum 3.3 g/dL (3.2-5.0); Alkaline Phosphatase 103 U/L (45-117); Anion Gap 7 (5-15); BUN 13 mg/dL (7-18); BUN/Creat Ratio 15.6 RATIO (10-20); Bilirubin, Direct 0.15 mg/dL (0.00-0.30); Calcium,Total 9.7 mg/dL (8.5-10.1); Chloride 105 mmol/L (98-107); Creatinine, Serum 0.84 mg/dL (0.55-1.02); EST Glomerular Filtration Rate 71 mL/min (>60); Est Glom Filt Rate - Afr Amer 86 mL/min (>60); Estimated Creatinine Clearance 48.58 ml/min; Globulin 4.4 g/dL (2.2-4.2); Glucose 114 mg/dL (74-106); Lipase 35 U/L (13-75); Potassium 3.9 mmol/L (3.5-5.1); Protein, Total 7.7 g/dL (6.4-8.2); Sodium Level 140 mmol/L (136-145)
--- NOTE | 2023-05-26 08:02 | EX.ED.DYSGE1 ---
HPI History of Present Illness Chief Complaint: Abd Pain Informant: patient Narrative Narrative: Pain in is a 72-year-old female with past medical history of hypertension GERD and repetitive diverticulitis requiring colectomy in the past. She states that over the last 2 days she has noticed increasing pain in the left lower quadrant with bouts of constipation. She states this is similar nature to her previous bouts of diverticulitis. She reports nausea without vomiting and denies any fevers chills dysuria or known sick contact. Therefore with concern that she is developing diverticulitis once again she presents for evaluation [facility] Medical History GERD (gastroesophageal reflux disease) Hypertension Sleep apnea Home Medications bisoprolol 5 mg-hydrochlorothiazide 6.25 mg tablet 1 tab PO DAILY BLOOD PRESSURE 09/19/15 [History Last Taken 05/08/19] Cholecalciferol (Vitamin D3) [Vitamin D3] 1 cap PO DAILY supplement 12/25/20 [History Last Taken Unknown] magnesium oxide 500 mg capsule 500 mg PO DAILY supplment 12/25/20 [History Last Taken Unknown] acetaminophen 500 mg tablet 1,000 mg (2 x 500 mg) PO Q8 #100 tabs 01/09/21 [Rx Last Taken Unknown] aspirin 81 mg chewable tablet 81 mg PO BIDCM #60 tabs 01/09/21 [Rx Last Taken Unknown] famotidine 20 mg tablet 20 mg PO DAILY #30 tabs 01/09/21 [Rx Last Taken Unknown] meloxicam 7.5 mg tablet 7.5 mg PO BID #60 tabs 01/09/21 [Rx Last Taken Unknown] sennosides 8.6 mg-docusate sodium 50 mg tablet 2 tablet PO BID #10 tabs 01/09/21 [Rx Last Taken Unknown] nirmatrelvir 300 mg (150 mg x2)-ritonavir 100 mg tablet,dose pack (Paxlovid) See Rx Instructions PO .COMPLEX #30 tabs 03/07/22 [Rx Last Taken Unknown] ciprofloxacin HCl 500 mg tablet (Cipro) 500 mg PO BID 7 days #14 tabs 05/26/23 [Rx Last Taken Unknown] metronidazole 500 mg tablet 500 mg PO TID 7 days #21 tabs 05/26/23 [Rx Last Taken Unknown] Allergy/AdvReac Type Severity Reaction Status Date / Time insect venom [yellow jacket] Allergy Rash Verified 05/27/22 10:19 codeine AdvReac Vomiting Verified 03/07/22 06:17 lisinopril AdvReac Other Verified 03/07/22 06:17 Family History Father Diabetes Heart disease Mother Diabetes Brother Cancer esophageal and brain Diverticulitis Brother Diverticulitis Surgical History History of colonoscopy (~2010) History of dilation and curettage History of elbow surgery History of partial colectomy History of tubal ligation Social History Smoking Status: Never smoker ROS ROS ED Constitutional Constitutional ED: Denies chills or fever(s) ENT ENT ED: Denies sore throat Cardiovascular Cardiovascular: Denies chest pain Respiratory/Chest Respiratory/Chest: Denies cough or dyspnea Gastrointestinal Gastrointestinal: Reports abdominal pain, constipation and nausea; Denies diarrhea or vomiting Genitourinary Genitourinary ED: Denies dysuria or hematuria Musculoskeletal Musculoskeletal: Denies back pain or myalgias Integumentary Denies rash Neurologic Neurologic: Denies headache(s) Hematologic/Lymphatic Hematologic/Lymphatic: Denies easy bleeding or easy bruising EXAM Physical Exam Const Vital Signs: 05/26/23 06:06 Temperature 97.6 F L Temperature Source Temporal Pulse Rate 73 Respiratory Rate 16 Blood Pressure 178/70 H Blood Pressure Mean 106 Pulse Ox 99 Oxygen Delivery Method Room Air Positive well nourished and well developed General Appearance ED: well developed HEENT Reports moist mucous membranes HEENT Narrative: No signs of infection in the posterior pharynx Eyes PERRL and EOMs intact bilaterally General Eye ED: Negative for scleral icterus Neck supple Resp normal respiratory effort and clear to auscultation bilaterally Cardio regular rate and regular rhythm Rate: other Other Details: Radial and carotid pulses equal and symmetric GI non-distended GI Narrative: Abdomen is obese soft and nondistended with hypoactive bowel sounds. There is mild pain on palpation of the left lower quadrant without voluntary guarding or rigidity. No pulsatile mass or fluid wave. No increased tympany noted Auscultation: hypoactive bowel sounds Palpation: soft Back/Spine no CVA tenderness Extremity normal to inspection Neuro oriented x3, CN's II-XII intact bilaterally and no sensory deficits noted Sensorium / Orientation: alert Motor Exam: strength 5/5 throughout Psych mental status grossly normal Skin no rashes or lesions noted General Skin Exam: Negative for jaundice MDM MDM MDM Narrative Medical decision making narrative: Patient presented ER hypertensive but has a past medical history of this. History is concerning for diverticulitis but with also previous surgical history small bowel obstruction is another possibility or development of an intestinal abscess. Secondary to this basic blood work was obtained which revealed no clinically significant findings. CT scan was obtained which interpreted by the emergency medicine physician and appears to have fat stranding in the left lower colon concerning for diverticulitis. At this time as patient is not showing findings for obstruction or perforation on CT scan or signs of septicemia or acute kidney injury on blood work there is no need for admission and patient can be given antibiotics and discharged home. History & Record Review Discussion w/independent historian: Patient Lab Data Attestation: I reviewed the patient's lab results. Labs: Laboratory Results - last 24 hr 05/26/23 06:30 WBC 11.0 RBC 5.17 Hgb 14.3 Hct 45.0 MCV 87.0 MCH 27.7 MCHC 31.8 L RDW Std Deviation 43.4 RDW Coeff of Zita 13.5 Plt Count 251 MPV 12.1 H Immature Gran % (Auto) 0.400 Neut % (Auto) 67.3 Lymph % (Auto) 23.5 [place] % (Auto) 6.7 Eos % (Auto) 1.6 Baso % (Auto) 0.5 Absolute Neuts (auto) 7.4 Absolute Lymphs (auto) 2.58 Nucleated RBC % 0 Sodium 140 Potassium 3.9 Chloride 105 Carbon Dioxide 28.0 Anion Gap 7 BUN 13 Creatinine 0.84 Estim Creat Clear Calc 48.58 Est GFR (MDRD) Af Amer 86 Est GFR (MDRD) Non-Af 71 BUN/Creatinine Ratio 15.6 Glucose 114 H Calcium 9.7 Total Bilirubin 0.40 Direct Bilirubin 0.15 AST 35 ALT 71 H Alkaline Phosphatase 103 Total Protein 7.7 Albumin 3.3 Globulin 4.4 H Lipase 35 Discharge Plan Triage Chief Complaint: Abd Pain ED Provider: Gian Lagos Dx/Rx/DC Orders Clinical Impression: Diverticulitis, GERD (gastroesophageal reflux disease), Hypertension Instructions: ED Diverticulitis Prescriptions: New ciprofloxacin HCl [Cipro] 500 mg tablet 500 mg PO BID 7 Days Qty: 14 0RF metronidazole 500 mg tablet 500 mg PO TID 7 Days Qty: 21 0RF No Action bisoprolol-hydrochlorothiazide 1 TAB tablet 1 tab PO DAILY magnesium oxide 500 MG capsule 500 mg PO DAILY Cholecalciferol (Vitamin D3) [Vitamin D3] 5,000 UNIT capsule 1 cap PO DAILY sennosides-docusate sodium 1 TABLET tablet 2 tablet PO BID Qty: 10 0RF Rx Instructions: Take until first bowel movement, then as needed acetaminophen 500 MG tablet 1,000 mg PO Q8 Qty: 100 0RF Rx Instructions: Do not take more than 3000 mg Tylenol in a 24-hour period. meloxicam 7.5 MG tablet 7.5 mg PO BID Qty: 60 0RF Rx Instructions: Do not take any other nonsteroidal anti-inflammatories while using meloxicam/Mobic. famotidine 20 MG tablet 20 mg PO DAILY Qty: 30 0RF aspirin 81 MG tablet,chewable 81 mg PO BIDCM Qty: 60 0RF Rx Instructions: Take 81 mg aspirin twice daily for 4 weeks postoperatively for DVT prophylaxis Paxlovid 150 mg x 2- 100 mg tablet See Rx Instructions .ROUTE .COMPLEX Qty: 30 0RF Rx Instructions: take TWO 150 mg tablets of nirmatrelvir with ONE 100 mg tablet of ritonavir twice daily for 5 days Primary Care Provider: Isreal Elias Referrals: Isreal Elias MD [Primary Care Provider] - Disposition Disposition: Home, Self Care
--- NOTE | 2023-05-26 08:05 | ED.RN ---
patient called out stating IV was painful. upon assessment by this RN, skin around IV was found to be hard, swollen, and cold to the touch. IV removed and dr. wade was notified. per dr. wade pt does not need another IV at this time
[2023-05-26 08:35] VITALS: BP 158/63; PULSE 60; RESP 16; RESP 18; TEMP 37.2; O2SAT 97; O2SAT 99
== END 2023-05-26 08:39 | disposition home or self-care (01) ==
PROVIDERS: Emergency Provider Emergency Medicine; PCP Family Medicine; Visit Provider Emergency Medicine
DX: K57.92 Diverticulitis of intestine, part unspecified, without perforation or abscess without bleeding (principal); K21.9 Gastro-esophageal reflux disease without esophagitis; I10 Essential (primary) hypertension
CPT/HCPCS: 74177; 80048; 80076; 83690; 85025; 99282; J7030; Q9967; A4216

== ENCOUNTER 2023-08-18 21:38 | Observation (INO) | payer MEDICARE, OTHER, SELFPAY ==
[2023-08-18] VITALS (7 sets, daily range): BP systolic 142–192; BP diastolic 74–122; PULSE 70–83; RESP 12–18; TEMP 36.1; O2SAT 96–98; BMI 44.8
--- NOTE | 2023-08-18 21:41 | EKG12_ITS ---
Test Reason : DYSRHYTHMIA Blood Pressure : / mmHG Vent. Rate : 076 BPM Atrial Rate : 076 BPM P-R Int : 162 ms QRS Dur : 078 ms QT Int : 390 ms P-R-T Axes : 054 021 018 degrees QTc Int : 438 ms Sinus rhythm with frequent Premature ventricular complexes Septal infarct , age undetermined Abnormal ECG Confirmed by JOSÉ MIGUEL LANG, ALF ([id number]), editor book MARIA ISABEL SIMEON ([id number]) on 08/23/2023 10:39:36 AM Referred By: Confirmed By:DON VALDEZ MD
--- NOTE | 2023-08-18 22:20 | RAD_ITS ---
INDICATION: chest pain EXAMINATION/TECHNIQUE: X-RAY - XR Chest 1 View COMPARISON: September 19, 2015. FINDINGS: LINES/DEVICES: None. LUNGS: No consolidation, edema or effusion. No pneumothorax. MEDIASTINUM AND CARDIOVASCULAR STRUCTURES: Cardiomegaly. BONES AND SOFT TISSUES: Unremarkable. RAD/Chest 1 View (Portable) IMPRESSION: Cardiomegaly without florid edema or focal consolidation. Electronically Signed: Cedric Sebastian MD at 22:57 EST ,
--- NOTE | 2023-08-18 22:24 | EDS_ITS ---
HPI History of Present Illness Chief Complaint: Chest Pain Informant: patient Narrative Narrative: 73-year-old female with no history of heart disease states she has been having dyspnea with exertion and exceptional fatigue with a little activities for the last few days and some swelling in her ankles. All day today as well as an episode last night, she has been having episodic nonpleuritic substernal chest pressure. Sometimes she feels it on the left side of her chest, right now it is substernal. No other radiation. Some of the chest pressure episodes today have been random and at rest. Most of them have lasted 10 or 20 minutes, she is currently having 1 has been lasting 30-60 minutes but it is relatively mild. She has had some palpitations, but as she is on the monitor and having ectopy, she is asymptomatic with it. She has never had more than an EKG and a stress test as far as cardiac testing. [facility] Medical History GERD (gastroesophageal reflux disease) Hypertension Sleep apnea Home Medications Cholecalciferol (Vitamin D3) [Vitamin D3] 1 cap PO DAILY supplement 12/25/20 [History Last Taken Unknown] magnesium oxide 500 mg capsule 500 mg PO DAILY supplment 12/25/20 [History Last Taken Unknown] acetaminophen 500 mg tablet 1,000 mg (2 x 500 mg) PO Q8 #100 tabs 01/09/21 [Rx Last Taken Unknown] bisoprolol 10 mg-hydrochlorothiazide 6.25 mg tablet 1 tab PO DAILY 08/18/23 [History Last Taken Unknown] Allergy/AdvReac Type Severity Reaction Status Date / Time insect venom [yellow jacket] Allergy Rash Verified 08/18/23 21:40 codeine AdvReac Vomiting Verified 08/18/23 21:40 lisinopril AdvReac Other Verified 08/18/23 21:40 Family History Father Diabetes Heart disease Mother Diabetes Brother Cancer esophageal and brain Diverticulitis Brother Diverticulitis Surgical History History of colonoscopy (~2010) History of dilation and curettage History of elbow surgery History of partial colectomy History of tubal ligation Social History Smoking Status: Never smoker ROS ROS ED Constitutional Constitutional ED: Denies chills, fever(s) or sweats Eyes Eyes: Denies change in vision or diplopia ENT ENT ED: Denies rhinorrhea or sore throat Cardiovascular Cardiovascular: Reports chest pain, leg edema, lightheadedness, orthopnea and palpitations; Denies orthostatic symptoms, racing heartbeat or syncope Respiratory/Chest Respiratory/Chest: Reports dyspnea and orthopnea; Denies cough Gastrointestinal Gastrointestinal: Denies abdominal pain, diarrhea, nausea or vomiting Genitourinary Genitourinary ED: Denies dysuria or hematuria Musculoskeletal Musculoskeletal: Denies back pain or neck pain Integumentary Denies abscess or rash Neurologic Neurologic: Denies headache(s), paresthesias or weakness Psychiatric Psychiatric: Denies anxiety or suicidal thoughts EXAM Physical Exam Const Vital Signs: 08/18/23 21:38 08/18/23 22:50 08/18/23 23:15 Temperature 96.9 F L Temperature Source Temporal Pulse Rate 72 74 80 Respiratory Rate 18 12 Blood Pressure 177/97 H 188/108 H 142/74 H Blood Pressure Mean 123 96 Pulse Ox 98 96 Oxygen Delivery Method Room Air Room Air 08/18/23 21:41 08/18/23 23:41 Temperature Temperature Source Pulse Rate 83 Respiratory Rate 14 Blood Pressure 151/75 H Blood Pressure Mean 100 Pulse Ox 96 96 Oxygen Delivery Method Room Air Room Air Positive well nourished, well developed and obese General Appearance ED: well developed and NAD Nutritional Appearance: obese HEENT Reports moist mucous membranes normocephalic and atraumatic Eyes PERRL and EOMs intact bilaterally Neck full ROM, supple and no JVD Resp normal respiratory effort and clear to auscultation bilaterally Cardio regular rate, regular rhythm and no murmurs Rhythm: abnormal rhythm ectopic beats GI non-tender and non-distended Auscultation: normoactive bowel sounds Palpation: soft Back/Spine no CVA tenderness General Back: other FROM Extremity normal to inspection General Extremety ED: Yes edema; Negative for pulses abnormal or tenderness General Extremity: edema bilateral lower extremity Details: mild; Negative for pulses abnormal Neuro oriented x3, CN's II-XII intact bilaterally and no sensory deficits noted Sensorium / Orientation: awake and alert Motor Exam: strength 5/5 throughout Skin no rashes or lesions noted and no wounds Heart Score History: Highly Suspicious ECG: Normal Age: >/= 65 years Risk Factors: 1 or 2 Risk Factors Troponin: >/=3 x Normal Limit Score: 7 MDM MDM MDM Narrative Medical decision making narrative: Patient was given aspirin as well as nitroglycerin, it only helped her pain a little bit but it gave her a significant headache which was treated with Tylenol so we held off on giving any more nitroglycerin. Concern here is that this is stable possibly turned unstable angina. Less likely pneumothorax, aortic dissection, pulmonary embolus although these diagnoses were also considered. Chest x-ray 1 view on my interpretation normal. Radiology notes mild cardiomegaly. I compared this to an acute abdominal series she had April 10, 2019, the technique is different given today it is an AP chest, but on my interpretation it does not look significantly different. Radiology called it mild cardiomegaly there as well. She is having lots of ectopy. Sound like she is feeling some of it but not all of it. We have seen no dysrhythmias in the emergency department. Notes her troponin came back within normal limits, her proBNP is abnormally elevated but not abnormal for her age. We did a second troponin for a delta, her measurement went from 8-9 for a delta of 1 which is essentially negative. However her heart score is still high, given her exertional symptoms with minimal exertion and her age, plan is for inpatient observation for further evaluation and possible provocative testing. History & Record Review Additional record(s) reviewed:: Other (Prior x-ray. Prior echocardiogram does not exist in our records. Stress test December 2022 negative.) Lab Data Attestation: I reviewed the patient's lab results. Labs: Laboratory Results - last 24 hr 08/18/23 08/19/23 22:15 00:30 WBC 10.4 RBC 5.12 Hgb 14.0 Hct 44.5 MCV 86.9 MCH 27.3 MCHC 31.5 L RDW Std Deviation 46.0 H RDW Coeff of Zita 14.4 Plt Count 213 MPV 12.6 H Immature Gran % (Auto) 0.300 Neut % (Auto) 51.6 Lymph % (Auto) 37.4 [place] % (Auto) 8.1 Eos % (Auto) 2.1 Baso % (Auto) 0.5 Absolute Neuts (auto) 5.4 Absolute Lymphs (auto) 3.88 Nucleated RBC % 0 Sodium 137 Potassium 3.6 Chloride 105 Carbon Dioxide 29.0 Anion Gap 3 L BUN 18 Creatinine 0.88 Estim Creat Clear Calc 45.70 Est GFR (MDRD) Af Amer 82 Est GFR (MDRD) Non-Af 68 BUN/Creatinine Ratio 20.5 H Glucose 98 Calcium 9.4 Troponin I High Sens 8 9 B-Natriuretic Peptide 263.9 H Radiography Diagnostic Testing: Clinical Impression(s) from Imaging Studies Chest X-Ray 08/18/23 22:20 IMPRESSION: Cardiomegaly without florid edema or focal consolidation. Electronically Signed: Cedric Sebastian MD at 22:57 EST Reading Location ID and State: [facility] / [place] Tel , Service support , Rhythm Strip Rhythm Strip: Sinus Rhythm Rate: 70 Ectopy: PVC(s) EKG Initial EKG: Attestation: I personally reviewed and interpreted this EKG as follows: Interpretation: Sinus Rhythm and No Acute Injury Pattern Comments: Frequent PVCs Prior EKG tracings: available for review Prior: Unchanged (morphology/axis; PVCs new only) Management Discussion w/another healthcare provider: Hospitalist Discharge Plan Dx/Rx/DC Orders Clinical Impression: LINTON (dyspnea on exertion), Ventricular ectopy, Chest pain Disposition Disposition: Acute Care Hospital [facility]
[2023-08-18 22:27] LABS: Absolute Lymphocyte Count 3.88 X10^3/uL (0.83-4.51); Absolute Neutrophil Count 5.4 X10^3/uL (2.0-7.7); Basophil# 0.05 X10^3/uL; Basophil% 0.5 % (0-1); Eosinophil# 0.22 X10^3/uL; Eosinophils% 2.1 % (0-5); Hematocrit 44.5 % (37-47); Lymphocyte # 3.88 X10^3/ul (0.83-4.51); Lymphocyte % 37.4 % (19-41); Mean Corp Hgb Conc 31.5 g/dL (32-36); Mean Corpuscular Hgb 27.3 pg (27.0-32.0); Mean Corpuscular Volume 86.9 fL (81-99); Mean Platelet Vol. 12.6 fl (6.2-12.0); Monocyte# 0.84 X10^3/uL; Monocyte% 8.1 % (0-10); NRBC Flagged by Analyzer 0 % (0-5); Neutrophil # 5.35 X10^3/uL (2.7-7.7); Neutrophil % 51.6 % (47-70); Platelet Count 213 K/mm3 (150-450); RBC Distribution Width CV 14.4 % (11.6-14.6); Red Blood Count 5.12 M/mm3 (4.2-5.4); White Blood Count 10.4 K/mm3 (4.4-11.0)
[2023-08-18 22:44] LABS: Anion Gap 3 (5-15); BUN 18 mg/dL (7-18); BUN/Creat Ratio 20.5 RATIO (10-20); Calcium,Total 9.4 mg/dL (8.5-10.1); Chloride 105 mmol/L (98-107); Creatinine, Serum 0.88 mg/dL (0.55-1.02); EST Glomerular Filtration Rate 68 mL/min (>60); Est Glom Filt Rate - Afr Amer 82 mL/min (>60); Glucose 98 mg/dL (74-106); Potassium 3.6 mmol/L (3.5-5.1); Sodium Level 137 mmol/L (136-145); Troponin-I HS (w/2H Reflex) 8 pg/mL (3.0-54.0)
[2023-08-18 22:48] LABS: BNP,B-Type NATRIURETIC PEPTIDE 263.9 pg/mL (0-100)
[2023-08-18] MEDS: Nitroglycerin SL (ED/IMG/CATH) 0.4 MG TABLET SL (22:50)
[2023-08-18] MEDS: 0.9% Normal Saline (1000mL) 1,000 ML 15 ML IV (22:51)
[2023-08-19 00:24] LABS: Reflex Troponin-HS? (from REC) Y
[2023-08-19 00:54] LABS: Troponin-I HS 9 pg/mL (3.0-54.0)
[2023-08-19 01:21] VITALS: BP 130/61; PULSE 78; RESP 12; O2SAT 97
[2023-08-19] MEDS: Aspirin 81 MG TAB.CHEW 324 MG PO (01:22)
[2023-08-19 01:23] VITALS: BP 130/61; PULSE 68; RESP 17; TEMP 36.1; O2SAT 98
--- NOTE | 2023-08-19 01:41 | HP.PCM.HOS_ITS ---
[facility] - General General Date of Admission: 08/19/23 Date of Service: 08/19/23 Chief Complaint: Chest pain, dyspnea on exertion, lower extremity edema and palpitations HPI Narrative EVELIA NUNEZ, is a 73 F with a past medical history of essential hypertension, morbid obesity with BMI 44.8 this admission, obstructive sleep apnea, history of partial colectomy, history of colonoscopy (~2010), chronic severe GERD and history of atypical chest pain with negative nuclear stress test in December of this year who presents to [facility] ER complaining of chest pain, dyspnea on exertion, lower extremity edema and palpitations. Ms. Nunez reports her symptoms began approximately 4 days prior to admission with a gradual onset of dyspnea on exertion with easy fatigability that acutely worsened over the last 2 days. She describes the chest pain as pressure-like, left-sided, substernal, nonradiating and episodic with most of her bouts of pain lasting 10 to 20 minutes. This is surprising to her because she usually works out 3 days/week and is able to ride a bicycle routinely without severe exertion so she is very concerned. Her father underwent coronary artery bypass grafting in his late 60s and she is concerned because of this history as well. She also admits to symptoms of severe GERD where she does not eat after proximately 4 to 5 PM because of severe dyspepsia and bloating in her upper abdomen and stomach that causes her extreme discomfort and she further explained that she has been contemplating consultation with a retail sales merchandiser development for EGD examination -but she simply has not made a firm decision yet. She admits her shortness of breath is sometimes made worse by lying flat. She stated she had a sense of impending doom when trying to force herself through her workout thinking that she could potentially if she continues to exert herself. She denies associated fever, chills, nausea or vomiting but she does admit to moderate lower extremity edema that is also new. In the ER she was diagnosed with chest pain complicated by frequent palpitations that coincide with ectopy on her secured entrance monitor with new easy fatigability and dyspnea on exertion with a lingering impending sense of doom if she would overexert herself. She was then admitted to the CDU under observation status for ongoing care for a stay that is expected to be less than 48 hours. [facility] Medical History CPAP (continuous positive airway pressure) dependence GERD (gastroesophageal reflux disease) Hypertension Non-smoker Sleep apnea Home Medications Cholecalciferol (Vitamin D3) [Vitamin D3] 1 cap PO DAILY supplement 12/25/20 [History Last Taken Unknown] magnesium oxide 500 mg capsule 500 mg PO DAILY supplment 12/25/20 [History Last Taken Unknown] acetaminophen 500 mg tablet 1,000 mg (2 x 500 mg) PO Q8 #100 tabs 01/09/21 [Rx Last Taken Unknown] bisoprolol 10 mg-hydrochlorothiazide 6.25 mg tablet 1 tab PO DAILY 08/18/23 [History Last Taken Unknown] Allergy/AdvReac Type Severity Reaction Status Date / Time insect venom [yellow jacket] Allergy Rash Verified 08/18/23 21:40 codeine AdvReac Vomiting Verified 08/18/23 21:40 lisinopril AdvReac Other Verified 08/18/23 21:40 Family History Father Diabetes Heart disease Mother Diabetes Brother Cancer esophageal and brain Diverticulitis Brother Diverticulitis Surgical History History of colonoscopy (~2010) History of dilation and curettage History of elbow surgery History of partial colectomy History of tubal ligation Social History Smoking Status: Never smoker Prior Cardiac Testing/Procedures Prior Cardiac Testing/Procedures: Stress Test ROS ROS Narrative Review of systems: Constitutional: Patient denies fevers chills or sweats Eyes: Patient denies change in vision ENT: Patient denies runny nose or sore throat Cardiovascular: Patient admits to chest pain that is sometimes severe with mild to moderate lower extremity edema bilaterally along with lightheadedness and palpitations. She denies syncope. Respiratory: Patient admits to dyspnea that is made worse with lying flat but she denies cough Gastrointestinal: Patient admits to bloating in her upper abdomen and dyspepsia with frequent GERD Genitourinary: Patient denies dysuria or hematuria Musculoskeletal: Patient denies back or neck pain Integumentary: Patient denies abscess or rash Neurologic: Patient denies headache, paresthesias or focal neurologic deficits Psychiatric: Patient denies suicidal thoughts but she does admit to anxiety about her heart 14 point review systems otherwise negative except for positives noted above in HPI. Vital Signs Vital Signs Vital Signs: 08/18/23 21:38 08/18/23 22:50 08/18/23 23:15 Temperature 96.9 F L Temperature Source Temporal Pulse Rate 72 74 80 Respiratory Rate 18 12 Blood Pressure 177/97 H 188/108 H 142/74 H Blood Pressure Mean 123 96 Pulse Ox 98 96 Oxygen Delivery Method Room Air Room Air 08/18/23 21:41 08/18/23 23:41 08/19/23 01:21 Temperature Temperature Source Pulse Rate 83 78 Respiratory Rate 14 12 Blood Pressure 151/75 H 130/61 H Blood Pressure Mean 100 84 Pulse Ox 96 96 97 Oxygen Delivery Method Room Air Room Air Room Air 08/19/23 01:23 08/18/23 21:54 08/18/23 22:48 Temperature 97.0 F L Temperature Source Pulse Rate 68 72 70 Respiratory Rate 17 13 12 Blood Pressure 130/61 H 192/122 H 188/108 H Blood Pressure Mean 84 145 134 Pulse Ox 98 98 97 Oxygen Delivery Method Room Air Room Air Weight Weight: 245 lb Body Mass Index (BMI) 44.8 Physical Exam Const alert, oriented x3 and no apparent distress Constitutional Narrative: Patient is morbidly obese and appears anxious. General Appearance: cooperative HEENT normocephalic, head/scalp atraumatic, hearing grossly normal bilaterally, moist oral mucous membranes and oropharynx normal Eyes PERRL, EOMs intact bilaterally and conjunctivae normal Neck no lymphadenopathy, supple and no JVD Resp normal respiratory effort, no retractions, no use of accessory muscles and clear to auscultation bilaterally Cardio regular rhythm Cardio Narrative: Patient has frequent ectopy which appears to be PVCs interrupting normal sinus r hythm on her secured entrance monitor. GI normal to inspection, nondistended, normoactive bowel sounds, soft to palpation, non-tender and non-distended GI Narrative: Morbidly obese. Extremity normal to inspection and full ROM Extremity Narrative: 2+ lower extremity edema noted. Skin Skin Narrative: Patient has no evidence of rash at this time. Neuro oriented x3, CN's II-XII intact bilaterally, moves all extremities and no focal motor deficits Sensorium / Orientation: awake, alert, oriented to person, oriented to place and oriented to time Speech: speech normal Motor Exam: strength 5/5 throughout Psych Mood & Affect: anxious Results Medical Records Data Attestation: I reviewed the patient's medical records Lab / Micro Data Attestation: I reviewed the patient's lab results. 08/18/23 22:15 08/18/23 22:15 Labs: Laboratory Results - last 24 hr 08/18/23 22:15: WBC 10.4, RBC 5.12, Hgb 14.0, Hct 44.5, MCV 86.9, MCH 27.3, MCHC 31.5 L, RDW Std Deviation 46.0 H, RDW Coeff of Zita 14.4, Plt Count 213, MPV 12.6 H, Immature Gran % (Auto) 0.300, Neut % (Auto) 51.6, Lymph % (Auto) 37.4, [place] % (Auto) 8.1, Eos % (Auto) 2.1, Baso % (Auto) 0.5, Absolute Neuts (auto) 5.4, Absolute Lymphs (auto) 3.88, Nucleated RBC % 0, Sodium 137, Potassium 3.6, Chloride 105, Carbon Dioxide 29.0, Anion Gap 3 L, BUN 18, Creatinine 0.88, Estim Creat Clear Calc 45.70, Est GFR (MDRD) Af Amer 82, Est GFR (MDRD) Non-Af 68, BUN/Creatinine Ratio 20.5 H, Glucose 98, Calcium 9.4, Troponin I High Sens 8, B- Natriuretic Peptide 263.9 H 08/19/23 00:30: Troponin I High Sens 9 Rhythm Strip Rhythm Strip: Sinus Rhythm Rate: 70 Ectopy: PVC(s) Radiology Impression Chest X-Ray 08/18/23 22:20 IMPRESSION: Cardiomegaly without florid edema or focal consolidation. Electronically Signed: Cedric Sebastian MD at 22:57 EST Reading Location ID and State: [facility] / [place] Tel , Service support , Assessment & Plan Assessment/Plan (1) Chest pain: (2) Ventricular ectopy: (3) LINTON (dyspnea on exertion): PLAN: Plan 1. Chest pain made worse with exertion with a sense of impending doom - Admit to CDU under observation status. Serial as troponins. Check echocardiogram to evaluate left ventricular ejection fraction. Check nuclear stress test this admission to evaluate for potential underlying ischemia. Finally, we will consult the sales project manager on-call to evaluate this patient in the a.m. on rounds for further recommendations with help appreciated in advance. 2. Frequent palpitations that coincide with ectopy on secured entrance monitor complicating #1 - Continue cardiac monitoring. 3. Severe uncontrolled GERD with suspected esophagitis compounding #1 and #2 - Start Protonix 40 mg p.o. daily plus add Carafate for presumed esophagitis. Consideration should be given for outpatient GI consultation at the time of discharge. 4. Morbid obesity with a BMI of 44.8 this admission with obstructive sleep apnea adding to the pathology of #1 - #3 - Weight loss will be recommended. Check TSH. 5. DVT prophylaxis - Lovenox 40 milligrams subcu twice daily. Total time: Approximately 45 minutes. Charges/Coding Visit Charges OBSV E&M: 40913 Observ/hosp same date L1
--- NOTE | 2023-08-19 02:31 | ECHOD_ITS ---
Reason For Study: ARYTHMIA Procedure This was a 2D Doppler, Color Flow transthoracic echocardiogram. Exam performed in department. Left Ventricle Normal LV size. The estimated ejection fraction is 55 %. Diastolic function is indeterminate. No regional wall motion abnormalities noted. Right Ventricle Normal RV size. Normal systolic function. Atria Normal left atrium. Normal right atrium. No doppler evidence for ASD. Mitral Valve There is no mitral valve stenosis. Mild (1+) mitral valve insufficiency. Tricuspid Valve There is no tricuspid stenosis. Trivial tricuspid valve insufficiency. Unable to estimate RV systolic pressure due to insufficient tricuspid regurgitant envelope. Aortic Valve Trisinus/trileaflet aortic valve. There is no aortic stenosis. No aortic valve insufficiency. Pulmonic Valve There is no pulmonic valvular stenosis. No pulmonic valve insufficiency. Great Vessels Normal aortic root. Pericardium/Pleural No pericardial effusion. MMode/2D Measurements & Calculations LVIDd: 5.3 cm IVSd: 1.2 cm Ao root diam: 3.5 cm LVIDs: 4.2 cm LVPWd: 1.0 cm FS: 20.6 % LAV(MOD-bp): 61.4 ml LA A4 area: 20.1 cm2 LA dimension(2D): 3.7 cm LAV(MOD-bp) Indexed: 29.7 ml/m2 LAV(MOD-sp2): 68.0 ml LAV(MOD-sp4): 56.6 ml TAPSE: 2.4 cm RA A4 area: 17.3 cm2 Time Measurements MV dec time: 0.15 sec Doppler Measurements & Calculations MV E max leonardo: 112.0 cm/sec Lat Peak E' Leonardo: 6.4 cm/sec Med Peak E' Leonardo: 6.1 cm/sec MV A max leonardo: 111.1 cm/sec E/E' lat: 17.5 E/E' med: 18.3 MV E/A: 1.0 MV V2 max: 118.0 cm/sec MV dec slope: 757.8 cm/sec2 Ao V2 max: 116.9 cm/sec MV max P.6 mmHg Ao max P.5 mmHg MV V2 mean: 76.5 cm/sec Ao V2 mean: 87.9 cm/sec MV mean P.6 mmHg Ao mean P.4 mmHg MV V2 VTI: 35.4 cm Ao V2 VTI: 28.9 cm AV (velocity ratio): 0.73 LV V1 max: 98.6 cm/sec PA V2 max: 52.4 cm/sec TR max leonardo: 260.6 cm/sec LV V1 max P.9 mmHg PA V2 mean: 45.1 cm/sec TR max P.2 mmHg LV V1 mean P.1 mmHg LV V1 mean: 68.5 cm/sec LV V1 VTI: 21.2 cm ECHO/Echo Complete Interpretation Summary The estimated ejection fraction is 55 %. Diastolic function is indeterminate. Mild (1+) mitral valve insufficiency. Ordering Physician: Antonino Sierra Referring Physician: HOWARD RATLIFF Performed By: Breann Stoddard RCS
[2023-08-19 03:24] VITALS: BP 154/91; PULSE 67; RESP 15; TEMP 36.6; O2SAT 97
[2023-08-19 03:25] VITALS: BMI 43.9
[2023-08-19 05:26] LABS: Troponin-I HS 9 pg/mL (3.0-54.0)
--- NOTE | 2023-08-19 05:28 | EKG12_ITS ---
Test Reason : CP ADMIT Blood Pressure : / mmHG Vent. Rate : 076 BPM Atrial Rate : 076 BPM P-R Int : 152 ms QRS Dur : 072 ms QT Int : 412 ms P-R-T Axes : 058 030 038 degrees QTc Int : 463 ms Sinus rhythm with frequent Premature ventricular complexes in a pattern of bigeminy Septal infarct , age undetermined Abnormal ECG When compared with ECG of 18-AUG-2023 21:46, MANUAL COMPARISON REQUIRED, DATA IS UNCONFIRMED Confirmed by JOSÉ MIGUEL LANG, ALF ([id number]), online content editor MARIA ISABEL SIMEON ([id number]) on 08/23/2023 10:58:55 AM Referred By: Confirmed By:DON VALDEZ MD
[2023-08-19 05:32] LABS: Cholesterol 199 mg/dL (200); High Density Lipoprotein 65 mg/dL; Triglycerides 92 mg/dL; Very Low Density Lipoprotein 18 mg/dL (5-40)
[2023-08-19 06:11] VITALS: BP 140/72; PULSE 62; RESP 12; TEMP 36.5; O2SAT 99
[2023-08-19] MEDS: Aspirin E.C. 325 MG Tablet PO (06:20)
[2023-08-19] MEDS: Sucralfate 1 GM Tablet PO (06:47)
[2023-08-19 10:34] VITALS: BP 171/82; PULSE 59; RESP 12; TEMP 36.7; O2SAT 99
[2023-08-19] MEDS: hydroCHLOROthiazide 6.25mg TAB 6.25 MG PO (10:41)
[2023-08-19] MEDS: Bisoprolol Fumarate 5 MG Tablet 10 MG PO (10:41)
--- NOTE | 2023-08-19 12:47 | PCM.CONS.C ---
Assessment & Plan Assessment/Plan (1) LINTON (dyspnea on exertion): PLAN: Cardiac work-up has been unremarkable. Explained to the patient that at this time she could be discharged home. She can follow-up with us as an outpatient. If she continues to have shortness of breath or develops chest pain on exertion then we could proceed with coronary angiography. She was advised to return back to the hospital if her symptoms get worse. Patient's blood pressure upon arrival was elevated. It is possible that her shortness of breath and elevated BNP are related to that. We will add amlodipine 5 mg p.o. daily to her regimen and she can follow-up with cardiology as an outpatient. HPI Consult Data Date of Consult: 08/19/23 HPI Narrative Reason for Consultation: Shortness of breath HPI Narrative: EVELIA NUNEZ, is a 73 F who presents with shortness of breath. Please refer to history and physical for full details. Patient underwent stress testing and 2D echo which were unremarkable. [facility] Medical History CPAP (continuous positive airway pressure) dependence GERD (gastroesophageal reflux disease) Hypertension Non-smoker Sleep apnea Home Medications Cholecalciferol (Vitamin D3) [Vitamin D3] 1 cap PO DAILY supplement 12/25/20 [History Last Taken Unknown] magnesium oxide 500 mg capsule 500 mg PO DAILY supplment 12/25/20 [History Last Taken Unknown] acetaminophen 500 mg tablet 1,000 mg (2 x 500 mg) PO Q8 #100 tabs 01/09/21 [Rx Last Taken Unknown] bisoprolol 10 mg-hydrochlorothiazide 6.25 mg tablet 1 tab PO DAILY 08/18/23 [History Last Taken Unknown] Allergy/AdvReac Type Severity Reaction Status Date / Time insect venom [yellow jacket] Allergy Rash Verified 08/18/23 21:40 codeine AdvReac Vomiting Verified 08/18/23 21:40 lisinopril AdvReac Other Verified 08/18/23 21:40 Family History Father Diabetes Heart disease Mother Diabetes Brother Cancer esophageal and brain Diverticulitis Brother Diverticulitis Surgical History History of colonoscopy (~2010) History of dilation and curettage History of elbow surgery History of partial colectomy History of tubal ligation Social History Smoking Status: Never smoker Physical Exam Const alert and oriented x3 HEENT normocephalic Eyes no scleral icterus Resp normal respiratory effort Cardio regular rate Extremity no pedal edema Psych mental status grossly normal Risk Stratification Risk Stratification Applicable: No Charges/Coding Visit Charges Inpatient E&M: 86619 Init Hosp L2 Objective Data Vital Signs: Vital Signs Temp Pulse Resp BP Pulse Ox O2 Del Method 98.0 F 59 L 12 171/82 H 99 Room Air 08/19/23 10:34 08/19/23 10:34 08/19/23 10:34 08/19/23 10:34 08/19/23 10:34 08/19/23 10:34 Oxygen Delivery Method Room Air Weight: 240 lb Body Mass Index (BMI) 43.9 Intake & Output: Intake and Output for Last 24 Hours 08/17/23 08/18/23 08/19/23 23:59 23:59 23:59 Intake Total 100 / 100 Balance 100 / 100 Lab / Micro Data 08/18/23 22:15 08/18/23 22:15 Labs: Laboratory Results - last 24 hr 08/18/23 22:15: WBC 10.4, RBC 5.12, Hgb 14.0, Hct 44.5, MCV 86.9, MCH 27.3, MCHC 31.5 L, RDW Std Deviation 46.0 H, RDW Coeff of Zita 14.4, Plt Count 213, MPV 12.6 H, Immature Gran % (Auto) 0.300, Neut % (Auto) 51.6, Lymph % (Auto) 37.4, [place] % (Auto) 8.1, Eos % (Auto) 2.1, Baso % (Auto) 0.5, Absolute Neuts (auto) 5.4, Absolute Lymphs (auto) 3.88, Nucleated RBC % 0, Sodium 137, Potassium 3.6, Chloride 105, Carbon Dioxide 29.0, Anion Gap 3 L, BUN 18, Creatinine 0.88, Estim Creat Clear Calc 45.70, Est GFR (MDRD) Af Amer 82, Est GFR (MDRD) Non-Af 68, BUN/Creatinine Ratio 20.5 H, Glucose 98, Calcium 9.4, Troponin I High Sens 8, B-Natriuretic Peptide 263.9 H 08/19/23 00:30: Troponin I High Sens 9 08/19/23 04:47: Troponin I High Sens 9, Triglycerides 92, Cholesterol 199, LDL Cholesterol 116, VLDL Cholesterol 18, HDL Cholesterol 65 Rhythm Strip Rhythm Strip: Sinus Rhythm Rate: 70 Ectopy: PVC(s) Cardiology Labs/Tests 08/18/23 22:15: WBC 10.4, RBC 5.12, Hgb 14.0, Hct 44.5, MCV 86.9, MCH 27.3, MCHC 31.5 L, Plt Count 213, MPV 12.6 H, Immature Gran % (Auto) 0.300, Neut % (Auto) 51.6, Lymph % (Auto) 37.4, [place] % (Auto) 8.1, Eos % (Auto) 2.1, Baso % (Auto) 0.5, Absolute Neuts (auto) 5.4, Nucleated RBC % 0, Sodium 137, Potassium 3.6, Chloride 105, Carbon Dioxide 29.0, Anion Gap 3 L, BUN 18, Creatinine 0.88, Est GFR (MDRD) Af Amer 82, Est GFR (MDRD) Non-Af 68, BUN/Creatinine Ratio 20.5 H, Glucose 98, Calcium 9.4, B-Natriuretic Peptide 263.9 H 08/19/23 04:47: Triglycerides 92, Cholesterol 199, LDL Cholesterol 116, VLDL Cholesterol 18, HDL Cholesterol 65 Rhythm: EKG: ECHO: Stress Test: Cardiac Cath: PCI: CT Surgery: Holter monitor: EPS: PPM: CXR: Chest CT Scan: Radiography Diagnostic Testing: Radiology Impression Chest X-Ray 08/18/23 22:20 IMPRESSION: Cardiomegaly without florid edema or focal consolidation. Electronically Signed: Cedric Sebastian MD at 22:57 EST , Echocardiogram 08/19/23 02:31 Interpretation Summary The estimated ejection fraction is 55 %. Diastolic function is indeterminate. Mild (1+) mitral valve insufficiency. Ordering Physician: Antonino Sierra Referring Physician: HOWARD RATLIFF Performed By: Breann Stoddard RCS
--- NOTE | 2023-08-19 14:14 | PCM.DC ---
Discharge Instructions Diet Discharge Diet: No restrictions Activity Discharge Activity: Return to Normal Activity Follow Up Care Test Results: Test results from this visit will be discussed in further detail at your follow-up appointment, if applicable. Discharge Plan Admission Admit Date/Time: 08/19/23 02:26 Primary Reason for Your Visit: Shortness of breath on exertion Attending Provider: Emelia De León Primary Care Provider: Isreal Elias Consulting Providers: Karuna Trotter; Buffy Ortiz; Veronica Douglas; Aram Gomes; Perlita Fong; Ulysses Choi; Adi Hebert; Pawel Dickerson; Kay Coker; Brad Kamara; Kasey Boss; Jeanie Martínez; Arsalan Figueroa; Luis Mcclain; Jamil Rodriguez; Jann Manzanares EDITOR PRODUCER; Karuna Falcon EDITOR PRODUCER; Yadi Resendez PA; Antonino Sierra Instructions Patient Instructions: ED Dyspnea Discharge Orders/Prescriptions Prescriptions: New amlodipine 5 mg tablet 5 mg PO DAILY Qty: 30 0RF Continued magnesium oxide 500 MG capsule 500 mg PO DAILY Patient Comments: does not take everyday Cholecalciferol (Vitamin D3) [Vitamin D3] 5,000 UNIT capsule 1 cap PO DAILY Patient Comments: does not take everyday bisoprolol-hydrochlorothiazide 10-6.25 mg tablet 1 tab PO DAILY Discontinued acetaminophen 500 MG tablet 1,000 mg PO Q8 Qty: 100 0RF Rx Instructions: Do not take more than 3000 mg Tylenol in a 24-hour period. Referrals / Follow Up: Ulysses Choi MD [Med Staff - Active Staff] - (Follow up with cardiology as an outpatient) Isreal Elias MD [Primary Care Provider] - Within 1 Week Disposition Disposition (needs filled in before D/C Order can be placed): Home, Self Care
--- NOTE | 2023-08-19 14:17 | DS.PCM_ITS ---
Providers Date of Admission: 08/19/23 Date of Discharge: 08/19/23 Primary Care Physician: Dr. Howard Elias MD Consultations 08/19/23 03:25 Consult: Cardiology Routine Consulting Provider: [facility] Reason for Consult: Chest Pain and Palitations. EMERGENT Consult: No MD Notified: Yes Date Notified: 08/19/23 Time Notified: 06:37 Method of Notification: Text Method of Consult:: In-Person Reason For Visit: CHEST PAIN AND PALPITATIONS Diagnosis Discharge Diagnosis (1) LINOTN (dyspnea on exertion): Status: Acute Code(s): R06.09 - Other forms of dyspnea Plan #HTN Medications at Discharge Home Medications Cholecalciferol (Vitamin D3) [Vitamin D3] 1 cap PO DAILY supplement 12/25/20 magnesium oxide 500 mg capsule 500 mg PO DAILY supplment 12/25/20 bisoprolol 10 mg-hydrochlorothiazide 6.25 mg tablet 1 tab PO DAILY blood pressure 08/18/23 amlodipine 5 mg tablet 5 mg PO DAILY #30 tabs 08/19/23 Hospital Course Procedures - (stress test, echo) Summary of Care Provided Hospital Course: Per HPI: EVELIA MALCOLM, is a 73 F with a past medical history of essential hypertension, morbid obesity with BMI 44.8 this admission, obstructive sleep apnea, history of partial colectomy, history of colonoscopy (~2010), chronic severe GERD and history of atypical chest pain with negative nuclear stress test in December of this year who presents to [facility] ER complaining of chest pain, dyspnea on exertion, lower extremity edema and palpitations. Ms. Malcolm reports her symptoms began approximately 4 days prior to admission with a gradual onset of dyspnea on exertion with easy fatigability that acutely worsened over the last 2 days. She describes the chest pain as pressure-like, left-sided, substernal, nonradiating and episodic with most of her bouts of pain lasting 10 to 20 minutes. This is surprising to her because she usually works out 3 days/week and is able to ride a bicycle routinely without severe exertion so she is very concerned. Her father underwent coronary artery bypass grafting in his late 60s and she is concerned because of this history as well. She also admits to symptoms of severe GERD where she does not eat after proximately 4 to 5 PM because of severe dyspepsia and bloating in her upper abdomen and stomach that causes her extreme discomfort and she further explained that she has been contemplating consultation with a professor of early childhood education for EGD examination -but she simply has not made a firm decision yet. She admits her shortness of breath is sometimes made worse by lying flat. She stated she had a sense of impending doom when trying to force herself through her workout thinking that she could potentially if she continues to exert herself. She denies associated fever, chills, nausea or vomiting but she does admit to moderate lower extremity edema that is also new. In the ER she was diagnosed with chest pain complicated by frequent palpitations that coincide with ectopy on her air sampling and monitoring with new easy fatigability and dyspnea on exertion with a lingering impending sense of doom if she would overexert herself. She was then admitted to the CDU under observation status for ongoing care for a stay that is expected to be less than 48 hours. INTERVAL HISTORY: Stress test negative, echo unrevealing, cardiology evaluated and recommended starting amlodipine and follow-up outpatient with cardiology and if symptoms persist may need to consider further evaluation/intervention. Physical Exam Narrative General: Alert, oriented, no apparent distress HEENT: Atraumatic, normocephalic Eyes: Anicteric, normal conjunctiva, extraocular movements grossly intact Neck: Supple Respiratory: Clear to auscultation bilaterally, normal respiratory effort Cardiovascular: Regular rate and rhythm GI: Soft, nontender, nondistended Extremities: No edema Musculoskeletal: Moving all extremities Neuro: No overt focal neurological deficits Skin: No rashes appreciated Psych: Cooperative Weight / BMI Weight Weight: 108.862 kg Body Mass Index (BMI) 43.9 ABG / Lab / Microbiology Data 08/18/23 22:15 08/18/23 22:15 Laboratory: Laboratory Results - last 24 hr 08/18/23 22:15: WBC 10.4, RBC 5.12, Hgb 14.0, Hct 44.5, MCV 86.9, MCH 27.3, MCHC 31.5 L, RDW Std Deviation 46.0 H, RDW Coeff of Zita 14.4, Plt Count 213, MPV 12.6 H, Immature Gran % (Auto) 0.300, Neut % (Auto) 51.6, Lymph % (Auto) 37.4, [place] % (Auto) 8.1, Eos % (Auto) 2.1, Baso % (Auto) 0.5, Absolute Neuts (auto) 5.4, Absolute Lymphs (auto) 3.88, Nucleated RBC % 0, Sodium 137, Potassium 3.6, Chloride 105, Carbon Dioxide 29.0, Anion Gap 3 L, BUN 18, Creatinine 0.88, Estim Creat Clear Calc 45.70, Est GFR (MDRD) Af Amer 82, Est GFR (MDRD) Non-Af 68, BUN/Creatinine Ratio 20.5 H, Glucose 98, Calcium 9.4, Troponin I High Sens 8, B- Natriuretic Peptide 263.9 H 08/19/23 00:30: Troponin I High Sens 9 08/19/23 04:47: Troponin I High Sens 9, Triglycerides 92, Cholesterol 199, LDL Cholesterol 116, VLDL Cholesterol 18, HDL Cholesterol 65 Radiography Diagnostic Testing: Radiology Impression Chest X-Ray 08/18/23 22:20 IMPRESSION: Cardiomegaly without florid edema or focal consolidation. Electronically Signed: Cedric Sebastian MD at 22:57 EST Reading Location ID and State: [address] [place] [address] Tel , Service support , Echocardiogram 08/19/23 02:31 Interpretation Summary The estimated ejection fraction is 55 %. Diastolic function is indeterminate. Mild (1+) mitral valve insufficiency. Ordering Physician: Antonino Sierra Referring Physician: HOWARD ELIAS Performed By: Breann Stoddard RCS D/C Instructions Discharge Diet: No restrictions Meaningful Use Info Meaningful Use Diagnoses (Choose all that apply): None applicable Discharge Plan Admission Admit Date/Time: 08/19/23 02:26 Primary Reason for Your Visit: Shortness of breath on exertion Attending Provider: De León,Emelia Primary Care Provider: Howard Elias Consulting Providers: Karuna Trotter; Bufyf Ortiz; Veronica Douglas; Aram Gomes; Perlita Fong; Ulysses Choi; Adi Hebert; Pawel Dickerson; Kay Coker; Brad Kamara; Kasey Boss; Jeanie Martínez; Arsalan Figueroa; Luis Mcclain; Jamil Rodriguez; Jann Manzanares ROOFING LAYER; Karuna Falcon ROOFING LAYER; Yadi Resendez PA; Antonino Sierra Instructions Patient Instructions: ED Dyspnea Discharge Orders/Prescriptions Prescriptions: New amlodipine 5 mg tablet 5 mg PO DAILY Qty: 30 0RF Continued magnesium oxide 500 MG capsule 500 mg PO DAILY Patient Comments: does not take everyday Cholecalciferol (Vitamin D3) [Vitamin D3] 5,000 UNIT capsule 1 cap PO DAILY Patient Comments: does not take everyday bisoprolol-hydrochlorothiazide 10-6.25 mg tablet 1 tab PO DAILY Discontinued acetaminophen 500 MG tablet 1,000 mg PO Q8 Qty: 100 0RF Rx Instructions: Do not take more than 3000 mg Tylenol in a 24-hour period. Referrals / Follow Up: Ulysses Choi MD [Med Staff - Active Staff] - (Follow up with cardiology as an outpatient) Howard Elias MD [Primary Care Provider] - Within 1 Week Disposition Disposition (needs filled in before D/C Order can be placed): Home, Self Care
--- NOTE | 2023-08-19 14:46 | PHA.DC_ITS ---
Pharmacy [facility] Pharmacy Service has performed discharge medication reconciliation and counseling for this patient. The patient was counseled on the following discharge medications and changes in medications for homegoing were reviewed. 1. NORVASC The Reason for Use, instructions for use, and potential side effects were reviewed for all new medications. The patient's questions regarding all of their medications were answered. The patient was able to verbally demonstrate an understanding of their discharge medications. The patient's discharge medication list was reviewed for discrepancies and discrepancies were resolved. Medications at Discharge Home Medications Cholecalciferol (Vitamin D3) [Vitamin D3] 1 cap PO DAILY supplement 12/25/20 magnesium oxide 500 mg capsule 500 mg PO DAILY supplment 12/25/20 bisoprolol 10 mg-hydrochlorothiazide 6.25 mg tablet 1 tab PO DAILY blood pressure 08/18/23 amlodipine 5 mg tablet 5 mg PO DAILY #30 tabs 08/19/23
--- NOTE | 2023-08-19 15:34 | STRESSREP ---
Stress Test Report Date: 08/19/2023 Procedure: Pharmacologic stress nuclear imaging study Indications: Chest pain and palpitations Consent: Per the patient Procedure: The patient underwent pharmacologic (Regadenoson) evaluation with a peak heart rate of 97 beats per minute (65%predicted maximal heart rate) and a peak blood pressure of 152/90 mmHg. The baseline ECG demonstrated normal sinus rhythm, frequent PVCs. EKG during lexiscan infusion revealed no significant ischemic changes. EKG post infusion revealed no significant ischemic changes [There were no cardiac dysrhythmias pretest, during pharmacologic infusion, or recovery]. Patient had mild chest discomfort during the recovery phase that resolved within a few minutes. The examination was discontinued secondary to completion of protocol. Impression: 1. Lexiscan stress test test is negative for Lexiscan infusion induced EKG changes of ischemia. 2. Lexiscan stress test test is positive for Lexiscan infusion induced chest pressure, likely a nonspecific response 3. Results of the nuclear portion of the test is as below Myocardial perfusion imaging study: Technique: The patient was injected with 15 millicuries of technetium 99m Cardiolite and subsequently rest SPECT Cardiolite nuclear imaging was obtained in the horizontal long, vertical long, and short axis views. The patient underwent pharmacologic [Regadenoson 0.4mg] evaluation. Please see above for details. The patient was injected with 45 millicuries of technetium 99m Cardiolite and subsequently stress SPECT Cardiolite nuclear imaging was obtained in the horizontal long, vertical long, and short axis views. A gated Cardiolite study at peak stress was obtained. Interpretation: Rest and stress SPECT Cardiolite nuclear imaging status post realignment, normalization, and attenuation correction demonstrate no evidence of significant ischemia or infarction. Gated images reveal no significant regional wall motion abnormalities. The reported LVEF is 64%. Impression: 1. There is no evidence of significant ischemia or infarction. 2. Estimated ejection fraction is 64%. This note was generated with [employer] software. It may contain incorrect words, spelling, and punctuation that were not noted in checking the note before signing.
== END 2023-08-19 14:16 | disposition home or self-care (01) ==
LOC: ED 08-19 01:35 → PCU 08-19 03:41
PROVIDERS: Admitting Provider Internal Medicine; Emergency Provider Emergency Medicine; PCP Family Medicine; Visit Provider Internal Medicine
DX: R07.89 Other chest pain (principal); E66.01 Morbid (severe) obesity due to excess calories; Z68.41 Body mass index [BMI] 40.0-44.9, adult; I10 Essential (primary) hypertension; R00.2 Palpitations; K21.9 Gastro-esophageal reflux disease without esophagitis; R06.00 Dyspnea, unspecified; R60.0 Localized edema; G47.33 Obstructive sleep apnea (adult) (pediatric); R53.83 Other fatigue; Z79.899 Other long term (current) drug therapy
CPT/HCPCS: 36415; 71045; 78452; 80048; 80061; 83880; 84484; 85025; 93005; 93017; 93306; 99221; 99285; A9500; J7030; A4216; G0378; J2785